=== PATIENT | female | born 1970 | race American Indian/Alaskan Native ===

== ENCOUNTER 2016-12-04 10:11 | Emergency (ER) | payer SELFPAY ==
[2016-12-04 10:54] LABS: Basophils % (Auto) 0.6 % (0.0-1.8); Eosinophils % (Auto) 0.9 % (0.0-4.3); Hematocrit 30.1 % (30.3-42.9); Hemoglobin 9.5 gm/dl (10.1-14.3); Mean Corpuscular HGB Conc 32 % (30-34); Platelet Count 228 K/mm3 (140-440); Red Blood Count 4.37 M/mm3 (3.65-5.03); White Blood Count 5.5 K/mm3 (4.5-11.0)
[2016-12-04 11:01] LABS: Mean Corpuscular Hemoglobin 22 pg (28-32); Mean Corpuscular Volume 69 fl (79-97); Red Cell Distribution Width 22.5 % (13.2-15.2)
[2016-12-04 11:06] LABS: Anion Gap 18 mmol/L; Blood Urea Nitrogen 15 mg/dL (7-17); Calcium 10.2 mg/dL (8.4-10.2); Carbon Dioxide 22 mmol/L (22-30); Chloride 99.5 mmol/L (98-107); Glucose 81 mg/dL (65-100); Potassium 4.4 mmol/L (3.6-5.0); Sodium 135 mmol/L (137-145)
--- NOTE | 2016-12-04 11:07 | XRay Report ---
Chest 2 views: History: Shortness of breath. Findings: Normal cardiomediastinal silhouette. Trachea is midline. No consolidation, pneumothorax or pleural effusion. Impression: No acute cardiopulmonary findings.
--- NOTE | 2016-12-04 15:07 | Emergency Department Report ---
ED Shortness of Breath HPI - General Chief Complaint: Dyspnea/Respdistress Stated Complaint: KAL Time Seen by Provider: 12/04/16 14:42 Source: patient Mode of arrival: Ambulatory Limitations: No Limitations - History of Present Illness MD Complaint: shortness of breath -: Gradual Severity: mild Pain Scale: 1 Quality: dull Consistency: intermittent Improves With: nothing Worsens With: nothing Context: recent URI Associated Symptoms: chest pain, pain with inspiration Treatments Prior to Arrival: none - Related Data Home Oxygen Therapy: No Home Medications Medication Instructions Recorded Confirmed Last Taken Hydrochlorothiazide [Hctz] 25 mg PO QDAY 12/18/13 12/04/16 01/12/15 Lisinopril [Zestril TAB] 40 mg PO BID 12/04/16 12/04/16 Unknown Verapamil ER [Calan Sr] 240 mg PO BID 12/04/16 12/04/16 Unknown Previous Rx's Medication Instructions Recorded Last Taken Type Ferrous Sulfate [Feosol 325 MG tab] 325 mg PO QDAY #60 tablet 12/04/16 Unknown Rx Allergies Allergy/AdvReac Type Severity Reaction Status Date / Time No Known Allergies Allergy Verified 05/01/13 00:03 ED Review of Systems ROS: Stated complaint: KAL Other details as noted in HPI Comment: All other systems reviewed and negative ED Past Medical Hx - Past Medical History Previous Medical History?: Yes Hx Hypertension: Yes Additional medical history: heart murmer - Surgical History Past Surgical History?: No - Social History Smoking Status: Current Every Day Smoker Substance Use Type: Alcohol, Prescribed - Medications Home Medications: Home Medications Medication Instructions Recorded Confirmed Last Taken Type Hydrochlorothiazide [Hctz] 25 mg PO QDAY 12/18/13 12/04/16 01/12/15 History Ferrous Sulfate [Feosol 325 MG tab] 325 mg PO QDAY #60 tablet 12/04/16 Unknown Rx Lisinopril [Zestril TAB] 40 mg PO BID 12/04/16 12/04/16 Unknown History Verapamil ER [Calan Sr] 240 mg PO BID 12/04/16 12/04/16 Unknown History ED Physical Exam - General Limitations: No Limitations General appearance: alert, in no apparent distress - Head Head exam: Present: atraumatic, normocephalic - Eye Eye exam: Present: normal appearance - ENT ENT exam: Present: mucous membranes moist - Neck Neck exam: Present: normal inspection - Respiratory Respiratory exam: Present: normal lung sounds bilaterally. Absent: respiratory distress - Cardiovascular Cardiovascular Exam: Present: regular rate, normal rhythm. Absent: systolic murmur, diastolic murmur, rubs, gallop - GI/Abdominal GI/Abdominal exam: Present: soft, normal bowel sounds - Extremities Exam Extremities exam: Present: normal inspection - Back Exam Back exam: Present: normal inspection - Neurological Exam Neurological exam: Present: alert, oriented X3 - Psychiatric Psychiatric exam: Present: normal affect, normal mood - Skin Skin exam: Present: warm, dry, intact, normal color. Absent: rash ED Course Vital Signs 12/04/16 12/04/16 12/04/16 10:19 13:44 13:50 Temperature 98 F Pulse Rate 59 L 53 L 50 L Respiratory 24 10 L 14 Rate Blood Pressure 139/53 141/43 O2 Sat by Pulse 100 100 100 Oximetry ED Medical Decision Making - Lab Data Result diagrams: 12/04/16 10:28 12/04/16 10:26 - EKG Data Interpretation: no acute changes, normal EKG - Radiology Data Radiology results: report reviewed, image reviewed - Medical Decision Making patient doing well, cxr negative , labs negative./ no evidence to suspect PE at this time, symptoms resolved, Critical care attestation.: If time is entered above; I have spent that time in minutes in the direct care of this critically ill patient, excluding procedure time. ED Disposition Clinical Impression: Shortness of breath Disposition: DC-01 TO HOME OR SELFCARE Is pt being admited?: No Does the pt Need Aspirin: No Condition: Good Instructions: Dyspnea (ED) Prescriptions: Ferrous Sulfate [Feosol 325 MG tab] 325 mg PO QDAY #60 tablet Referrals: PRIMARY CARE, [Primary Care Provider] - 3-5 Days Time of Disposition: 15:14
[2016-12-04 15:41] VITALS: BP 154/47
== END 2016-12-04 15:45 | disposition home or self-care (01) ==
LOC: ED 10:11
DX: R06.02 Shortness of breath (principal); F17.200 Nicotine dependence, unspecified, uncomplicated; I10 Essential (primary) hypertension
CPT/HCPCS: 36415; 71020; 80048; 84484; 85025; 93005; 93010

== ENCOUNTER 2017-03-26 02:47 | Emergency (ER) | payer SELFPAY ==
--- NOTE | 2017-03-26 03:42 | XRay Report ---
FINAL REPORT PROCEDURE: XR FOOT 3+V LT TECHNIQUE: LEFT foot radiographs, AP, lateral, and oblique views. CPT 82020 HISTORY: PAIN....LT FOOT PAIN/EM COMPARISON: No prior studies are available for comparison. FINDINGS: Fracture (s) and/or Dislocation(s): None . Alignment: Normal . Joint space(s): Normal . Soft tissues: Normal . Bone mineralization: Normal . Foreign bodies: None . Calcaneal spurring: There are calcaneal spurs.. IMPRESSION: There is no acute bony or soft tissue abnormality..
[2017-03-26 08:29] VITALS: BP 138/63
[2017-03-26] MEDS ORDERED: TORADOL IM ONE (08:58)
--- NOTE | 2017-03-26 10:31 | Emergency Department Report ---
ED Lower Extremity HPI - General Chief Complaint: Extremity Injury, Lower Stated Complaint: HEEL PAIN Source: patient Mode of arrival: Ambulatory Limitations: No Limitations - History of Present Illness Initial Comments: 46 y/o F with a presents with left achilles region pain that started after she fell down 10 stairs on Thursday. Pt denies any LOC, trauma to the head, dizziness , or blurried vision at this time. Pt has not tried anything for the pain at this time. Pt states that the pain increases with bearing weight, decreases with rest. Pt states that the pain increased the following day after the incident. She states that the pain is a 9/10 in severity. Pt states her past menstrual cycle was 03/03/17 and denies a UPT at this time. NKDA. - Related Data Home Medications Medication Instructions Recorded Confirmed Last Taken Hydrochlorothiazide [Hctz] 25 mg PO QDAY 12/18/13 12/04/16 01/12/15 Lisinopril [Zestril TAB] 40 mg PO BID 12/04/16 12/04/16 Unknown Verapamil ER [Calan Sr] 240 mg PO BID 12/04/16 12/04/16 Unknown Previous Rx's Medication Instructions Recorded Last Taken Type Ferrous Sulfate [Feosol 325 MG tab] 325 mg PO QDAY #60 tablet 12/04/16 Unknown Rx Ibuprofen [Motrin 800 MG tab] 800 mg PO Q8HR PRN #15 tablet 03/26/17 Unknown Rx Allergies Allergy/AdvReac Type Severity Reaction Status Date / Time No Known Allergies Allergy Verified 05/01/13 00:03 ED Review of Systems ROS: Stated complaint: HEEL PAIN Other details as noted in HPI Constitutional: denies: chills, fever Eyes: denies: eye pain, eye discharge, vision change ENT: denies: ear pain, throat pain Respiratory: denies: cough, shortness of breath, wheezing Cardiovascular: denies: chest pain, palpitations Genitourinary: denies: urgency, dysuria, discharge Musculoskeletal: other (reports to left achilles region pain, swelling, and redness) Skin: other (redness noted at the left achilles region) Neurological: denies: headache, weakness, paresthesias Psychiatric: denies: anxiety, depression ED Past Medical Hx - Past Medical History Hx Hypertension: Yes Additional medical history: heart murmer - Social History Smoking Status: Current Some Day Smoker - Medications Home Medications: Home Medications Medication Instructions Recorded Confirmed Last Taken Type Hydrochlorothiazide [Hctz] 25 mg PO QDAY 12/18/13 12/04/16 01/12/15 History Ferrous Sulfate [Feosol 325 MG tab] 325 mg PO QDAY #60 tablet 12/04/16 Unknown Rx Lisinopril [Zestril TAB] 40 mg PO BID 12/04/16 12/04/16 Unknown History Verapamil ER [Calan Sr] 240 mg PO BID 12/04/16 12/04/16 Unknown History Ibuprofen [Motrin 800 MG tab] 800 mg PO Q8HR PRN #15 tablet 03/26/17 Unknown Rx ED Physical Exam - General Limitations: No Limitations General appearance: alert, in no apparent distress - Head Head exam: Present: atraumatic, normocephalic - Eye Eye exam: Present: normal appearance - ENT ENT exam: Present: mucous membranes moist - Respiratory Respiratory exam: Present: normal lung sounds bilaterally. Absent: respiratory distress - Cardiovascular Cardiovascular Exam: Present: regular rate, normal rhythm. Absent: systolic murmur, diastolic murmur, rubs, gallop - Extremities Exam Extremities exam: Present: other (negative zambrano's test, sensation is intact , there is no gap at the tendon region, pulses are full, pt is able to bare weight and ROM is intact despite pain) - Expanded Lower Extremity Exam Left Ankle exam: Present: full ROM (increased pain with flexion and extension of the left achilles joint, strength is intact depsite pain), tenderness (noted at the left anchilles region), swelling (mild swelling and redness noted at the left achilles region) Foot/Toe exam: Present: normal inspection, full ROM - Back Exam Back exam: Present: normal inspection - Neurological Exam Neurological exam: Present: alert, oriented X3, other (mild limping at the site of injury, mild redness and swelling noted at the site ) - Psychiatric Psychiatric exam: Present: normal affect, normal mood - Skin Skin exam: Present: warm, dry, intact, other (there was mild redness noted at the achilles region of the left LE). Absent: rash ED Course Vital Signs 03/26/17 03/26/17 03:05 08:28 Temperature 98.1 F 98.2 F Pulse Rate 76 87 Respiratory 18 14 Rate Blood Pressure 191/62 Blood Pressure 138/63 [Left] O2 Sat by Pulse 100 100 Oximetry ED Lower Extremity MDM - Radiology Data Radiology results: image reviewed XR of the left foot was unremarkable for any acute fractures there was calcaneal spurs noted. - Medical Decision Making Pt had fallen down 10 stairs on Thursday, XR of the left foot was no indicative of fractures. There was no evidence of tendon rupture. Pt was examined by myself and Dr. Coon. Pt was given toradol in the ED with improvement of the pain. She was discharged with a ankle stirrup, crutches, and anti-inflammatory at this time. RICE therapy. She was encouraged to follow-up with Dr. Hernandez, referral provided. pt was discharged in stable condition, alert and oriented, and does not appear to be in any respiratory distress at this time. Critical care attestation.: If time is entered above; I have spent that time in minutes in the direct care of this critically ill patient, excluding procedure time. ED Disposition Clinical Impression: Left ankle pain Qualifiers: Chronicity: acute Qualified Code(s): M25.572 - Pain in left ankle and joints of left foot Disposition: DC-01 TO HOME OR SELFCARE Is pt being admited?: No Does the pt Need Aspirin: No Condition: Stable Instructions: Ibuprofen (By mouth), Ankle Stirrup Splint (ED), Arthralgia (ED) , RICE Therapy (ED) Additional Instructions: Please take the anti-inflammatory as needed for the pain. Rest, Ice, compress and elevated the joint. Please purchase heel cups to help with the calcaneal spurs. A left ankle stirrup and crutches as need provided for you today. Please follow-up with PCP in 3-5 days. Please follow-up with orthopedics in 1 week. Return to the ER immediately with any acute worsening. Prescriptions: Ibuprofen [Motrin 800 MG tab] 800 mg PO Q8HR PRN #15 tablet PRN Reason: pain Referrals: PRIMARY MD SHANAE [Primary Care Provider] - 3-5 Days STEPHY HERNANDEZ MD [Staff Physician] - 3-5 Days [facility] [Outside] - 3-5 Days [facility] [Outside] - 3-5 Days Forms: Work/School Release Form(ED)
== END 2017-03-26 11:06 | disposition home or self-care (01) ==
LOC: ED 02:47
DX: M25.572 Pain in left ankle and joints of left foot (principal); I10 Essential (primary) hypertension
CPT/HCPCS: 29515; 73630; 96372; 99283; J1885

== ENCOUNTER 2018-08-15 13:36 | Emergency (ER) | payer SELFPAY ==
[2018-08-15 13:49] VITALS: BP 151/42
--- NOTE | 2018-08-15 13:53 | Emergency Department Report ---
ED ENT HPI - General Chief complaint: Dental/Oral Stated complaint: TOOTHACHE/HEADACHE Time Seen by Provider: 08/15/18 13:47 Source: patient Mode of arrival: Ambulatory Limitations: No Limitations - History of Present Illness Initial comments: This is a 48-year-old female that presents with right lower dental pain. Denies follow-up with dentist. Stated has this chronic condition. Stated will follow- up with dentist tomorrow. Denies any facial swelling. Denies any chest pain, shortness of breathe, fever, or chills. Nia reddy MD complaint: tooth pain -: week(s) Location: tooth # 1 - pain here Severity: mild Severity scale (0 -10): 8 Quality: aching Consistency: constant Improves with: none Worsens with: none Context- Dental: history of dental caries, poor dental care Associated Symptoms: gum swelling, toothache. denies: fever, cough, pain with swallowing, sore throat, tinnitus, hearing loss, discharge from ear, rhinorrhea - Related Data Previous Rx's Medication Instructions Recorded Last Taken Type Ibuprofen [Motrin 800 MG tab] 800 mg PO Q8HR PRN #15 tablet 03/26/17 Unknown Rx Ferrous Sulfate [Feosol 325 MG tab] 325 mg PO QDAY #60 tablet 05/23/18 Unknown Rx Lisinopril [Zestril TAB] 40 mg PO BID #60 tablet 05/23/18 Unknown Rx Verapamil ER [Calan Sr] 240 mg PO BID #60 tablet 05/23/18 Unknown Rx hydroCHLOROthiazide [Hctz] 25 mg PO QDAY #30 tablet 05/23/18 Unknown Rx Acetaminophen/Codeine [Tylenol 1 tab PO Q6H PRN #12 tab 08/15/18 Unknown Rx /Codeine # 3 tab] Amoxicillin/K Clav Tab [Augmentin 1 tab PO Q12HR #20 tab 08/15/18 Unknown Rx 875 mg] Chlorhexidine Mouthwash [Peridex] 15 ml MM BID #1 bottle 08/15/18 Unknown Rx Ibuprofen [Motrin] 600 mg PO Q8H PRN #20 tablet 08/15/18 Unknown Rx Allergies Allergy/AdvReac Type Severity Reaction Status Date / Time No Known Allergies Allergy Verified 05/01/13 00:03 ED Dental HPI - General Chief complaint: Dental/Oral Stated complaint: TOOTHACHE/HEADACHE Time Seen by Provider: 08/15/18 13:47 Source: patient Mode of arrival: Ambulatory Limitations: No Limitations - Related Data Previous Rx's Medication Instructions Recorded Last Taken Type Ibuprofen [Motrin 800 MG tab] 800 mg PO Q8HR PRN #15 tablet 03/26/17 Unknown Rx Ferrous Sulfate [Feosol 325 MG tab] 325 mg PO QDAY #60 tablet 05/23/18 Unknown Rx Lisinopril [Zestril TAB] 40 mg PO BID #60 tablet 05/23/18 Unknown Rx Verapamil ER [Calan Sr] 240 mg PO BID #60 tablet 05/23/18 Unknown Rx hydroCHLOROthiazide [Hctz] 25 mg PO QDAY #30 tablet 05/23/18 Unknown Rx Acetaminophen/Codeine [Tylenol 1 tab PO Q6H PRN #12 tab 08/15/18 Unknown Rx /Codeine # 3 tab] Amoxicillin/K Clav Tab [Augmentin 1 tab PO Q12HR #20 tab 08/15/18 Unknown Rx 875 mg] Chlorhexidine Mouthwash [Peridex] 15 ml MM BID #1 bottle 08/15/18 Unknown Rx Ibuprofen [Motrin] 600 mg PO Q8H PRN #20 tablet 08/15/18 Unknown Rx Allergies Allergy/AdvReac Type Severity Reaction Status Date / Time No Known Allergies Allergy Verified 05/01/13 00:03 ED Review of Systems ROS: Stated complaint: TOOTHACHE/HEADACHE Other details as noted in HPI Constitutional: denies: chills, fever Eyes: denies: eye pain, eye discharge, vision change ENT: dental pain. denies: ear pain, throat pain Respiratory: denies: cough, shortness of breath, wheezing Cardiovascular: denies: chest pain, palpitations Endocrine: no symptoms reported Gastrointestinal: denies: abdominal pain, nausea, diarrhea Genitourinary: denies: urgency, dysuria, discharge Musculoskeletal: denies: back pain, joint swelling, arthralgia Skin: denies: rash, lesions Neurological: denies: headache, weakness, paresthesias Psychiatric: denies: anxiety, depression Hematological/Lymphatic: denies: easy bleeding, easy bruising ED Past Medical Hx - Past Medical History Hx Hypertension: Yes Additional medical history: heart murmer - Social History Smoking Status: Current Every Day Smoker Substance Use Type: None - Medications Home Medications: Home Medications Medication Instructions Recorded Confirmed Last Taken Type Ibuprofen [Motrin 800 MG tab] 800 mg PO Q8HR PRN #15 tablet 03/26/17 Unknown Rx Ferrous Sulfate [Feosol 325 MG tab] 325 mg PO QDAY #60 tablet 05/23/18 Unknown Rx Lisinopril [Zestril TAB] 40 mg PO BID #60 tablet 05/23/18 Unknown Rx Verapamil ER [Calan Sr] 240 mg PO BID #60 tablet 05/23/18 Unknown Rx hydroCHLOROthiazide [Hctz] 25 mg PO QDAY #30 tablet 05/23/18 Unknown Rx Acetaminophen/Codeine [Tylenol 1 tab PO Q6H PRN #12 tab 08/15/18 Unknown Rx /Codeine # 3 tab] Amoxicillin/K Clav Tab [Augmentin 1 tab PO Q12HR #20 tab 08/15/18 Unknown Rx 875 mg] Chlorhexidine Mouthwash [Peridex] 15 ml MM BID #1 bottle 08/15/18 Unknown Rx Ibuprofen [Motrin] 600 mg PO Q8H PRN #20 tablet 08/15/18 Unknown Rx ED Physical Exam - General Limitations: No Limitations General appearance: alert, in no apparent distress - Head Head exam: Present: atraumatic, normocephalic - Expanded ENT Exam Expanded Ear exam: Present: normal external inspection Mouth exam: Present: normal external inspection. Absent: drooling, trismus, muffled voice Teeth exam: Present: dental caries, fractured tooth #, dental tenderness #, gingival enlargement, other (no facial swelling. No abscess.) Throat exam: Positive: normal inspection - Neck Neck exam: Present: normal inspection, full ROM - Extremities Exam Extremities exam: Present: normal inspection, full ROM - Back Exam Back exam: Present: normal inspection - Neurological Exam Neurological exam: Present: alert, oriented X3 - Psychiatric Psychiatric exam: Present: normal affect, normal mood - Skin Skin exam: Present: warm, dry, intact, normal color. Absent: rash ED Course - Reevaluation(s) Reevaluation #1: 08/15/18 13:50 Patient is speaking in full sentences with no signs of distress noted. Critical care attestation.: If time is entered above; I have spent that time in minutes in the direct care of this critically ill patient, excluding procedure time. ED Disposition Clinical Impression: Dental caries, Gingivitis Disposition: TO HOME OR SELFCARE Is pt being admited?: No Does the pt Need Aspirin: No Condition: Stable Instructions: Dental Caries (ED), Gingivitis (ED), Acetaminophen/Codeine (By mouth) Additional Instructions: Follow-up with dentist doctor in 3-5 days or if symptoms worsen and continue return to the emergency department as soon as possible. Prescriptions: Acetaminophen/Codeine [Tylenol /Codeine # 3 tab] 1 tab PO Q6H PRN #12 tab PRN Reason: Pain , Severe (7-10) Amoxicillin/K Clav Tab [Augmentin 875 mg] 1 tab PO Q12HR #20 tab Chlorhexidine Mouthwash [Peridex] 15 ml MM BID #1 bottle Ibuprofen [Motrin] 600 mg PO Q8H PRN #20 tablet PRN Reason: Pain Referrals: PRIMARY CARE, [Referring] - 3-5 Days MOE STERN MD [Staff Physician] - 3-5 Days [facility] [Outside] - 3-5 Days
== END 2018-08-15 14:04 | disposition home or self-care (01) ==
LOC: ED 13:36
DX: K02.9 Dental caries, unspecified (principal); K05.10 Chronic gingivitis, plaque induced; I10 Essential (primary) hypertension; F17.200 Nicotine dependence, unspecified, uncomplicated
CPT/HCPCS: 99282

== ENCOUNTER 2018-10-05 16:59 | Emergency (ER) | payer OTHER ==
--- NOTE | 2018-10-05 17:08 | Emergency Department Report ---
Chief Complaint: Pain General Stated Complaint: BODY ACHE Time Seen by Provider: 10/05/18 17:06 - HPI History of Present Illness: HERE WITH GEN BODY ACHES NO FEVER AT HOME NO OTHER S/S TEMP 99 IN TRIAGE TEARFUL IN TRIAGE NO COUGH NO N/V/D NO ABD PAIN NO FLU SHOT THIS YEAR PSH NONE PMH HTN RX VERAPAMIL LISINOPRIL MOM DEC OLD AGE DAD DEC ? CAUSE OBESE CIG MSE COMPLETED - Exam Vital Signs: Vital Signs 10/05/18 17:04 Temperature 99.9 F H Pulse Rate 78 Respiratory 20 Rate Blood Pressure 172/58 O2 Sat by Pulse 99 Oximetry MSE screening note: Focused history and physical exam performed. Due to findings the following was ordered: ED Disposition for MSE Condition: Stable
[2018-10-05 17:41] LABS: Hematocrit 36.1 % (30.3-42.9); Hemoglobin 11.4 gm/dl (10.1-14.3); Mean Corpuscular HGB Conc 32 % (30-34); Mean Corpuscular Volume 75 fl (79-97); Platelet Count 267 K/mm3 (140-440); Red Blood Count 4.81 M/mm3 (3.65-5.03)
[2018-10-05 17:42] LABS: Red Cell Distribution Width 25.2 % (13.2-15.2)
[2018-10-05 18:02] LABS: Alanine Aminotransferase 12 units/L (7-56); Albumin 4.2 g/dL (3.9-5); BUN/Creatinine Ratio 17; Blood Urea Nitrogen 10 mg/dL (7-17); Calcium 10.5 mg/dL (8.4-10.2); Hemolysis Index 4
--- NOTE | 2018-10-05 18:28 | XRay Report ---
PROCEDURE: XR CHEST ROUTINE 2V TECHNIQUE: PA and lateral chest radiographs were obtained. HISTORY: PAIN COMPARISONS: 05/23/2018. FINDINGS: Heart: Normal. Mediastinum/Vessels: Normal. Lungs/Pleural space: No infiltrate, effusion, or pneumothorax. Bony thorax: No acute osseous abnormality. IMPRESSION: No radiographic evidence of acute abnormality. This document is electronically signed by Mary Anderson MD., October 05 2018 06:26:13 PM ET
[2018-10-05 18:58] LABS: Bacteria,Urine 1+ /HPF (Negative); Bilirubin,Urine NEG (Negative); Blood,Urine NEG (Negative); Color,Urine Yellow (Yellow); Protein,Urine <15 mg/dL mg/dL (Negative); WBC,Urine < 1.0 /HPF (0.0-6.0)
[2018-10-05] MEDS ORDERED: NACL 0.9% 1000 ML 1,000 ML IV ONE (19:11)
[2018-10-05] MEDS ORDERED: IBUPROFEN PO ONE (19:12)
[2018-10-05] MEDS ORDERED: XYLOCAINE 1% MPF 5 mL INFILTRATI ONE (19:30)
[2018-10-05] MEDS ORDERED: ROCEPHIN IM STA (19:30)
[2018-10-05] MEDS ORDERED: NORCO 5/325 PO STA (19:30)
--- NOTE | 2018-10-05 20:47 | Emergency Department Report ---
- General Chief Complaint: Pain General Stated Complaint: BODY ACHE Time Seen by Provider: 10/05/18 17:06 Source: patient Mode of arrival: Ambulatory Limitations: No Limitations - History of Present Illness Initial Comments: 48-year-old female this morning, went to work at 5 AM she was she thinks was sick with cold symptoms to develop sinus congestion, coryza and dull headache around 9:30, which is continued to progressively worsen since the onset. She reports no sore throat, no hemoptysis, hematemesis, no sputum production. No dysuria, no abdominal pain, no rashes or wounds to the body. MD Complaint: nasal congestion Consistency: constant Improves With: nothing Worsens With: nothing Context: sick contacts Associated Symptoms: chills, myalgias, cough. denies: shortness of breath, abdominal pain, confusion, right sweats, weight loss, epistaxis Treatments Prior to Arrival: none - Related Data Previous Rx's Medication Instructions Recorded Last Taken Type Ibuprofen [Motrin 800 MG tab] 800 mg PO Q8HR PRN #15 tablet 03/26/17 Unknown Rx Ferrous Sulfate [Feosol 325 MG tab] 325 mg PO QDAY #60 tablet 05/23/18 Unknown Rx Lisinopril [Zestril TAB] 40 mg PO BID #60 tablet 05/23/18 Unknown Rx Verapamil ER [Calan Sr] 240 mg PO BID #60 tablet 05/23/18 Unknown Rx hydroCHLOROthiazide [Hctz] 25 mg PO QDAY #30 tablet 05/23/18 Unknown Rx Acetaminophen/Codeine [Tylenol 1 tab PO Q6H PRN #12 tab 08/15/18 Unknown Rx /Codeine # 3 tab] Amoxicillin/K Clav Tab [Augmentin 1 tab PO Q12HR #20 tab 08/15/18 Unknown Rx 875 mg] Chlorhexidine Mouthwash [Peridex] 15 ml MM BID #1 bottle 08/15/18 Unknown Rx Ibuprofen [Motrin] 600 mg PO Q8H PRN #20 tablet 08/15/18 Unknown Rx Allergies Allergy/AdvReac Type Severity Reaction Status Date / Time No Known Allergies Allergy Verified 10/05/18 17:01 ED Review of Systems ROS: Stated complaint: BODY ACHE Other details as noted in HPI Constitutional: denies: chills, fever Eyes: denies: eye pain, eye discharge, vision change ENT: denies: ear pain, throat pain Respiratory: denies: cough, shortness of breath, wheezing Cardiovascular: denies: chest pain, palpitations Endocrine: no symptoms reported Gastrointestinal: denies: abdominal pain, nausea, diarrhea Genitourinary: denies: urgency, dysuria, discharge Musculoskeletal: denies: back pain, joint swelling, arthralgia Skin: denies: rash, lesions Neurological: denies: headache, weakness, paresthesias Psychiatric: denies: anxiety, depression Hematological/Lymphatic: denies: easy bleeding, easy bruising ED Past Medical Hx - Past Medical History Previous Medical History?: Yes Hx Hypertension: Yes Additional medical history: heart murmer - Surgical History Past Surgical History?: No - Social History Smoking Status: Current Every Day Smoker Substance Use Type: None - Medications Home Medications: Home Medications Medication Instructions Recorded Confirmed Last Taken Type Ibuprofen [Motrin 800 MG tab] 800 mg PO Q8HR PRN #15 tablet 03/26/17 Unknown Rx Ferrous Sulfate [Feosol 325 MG tab] 325 mg PO QDAY #60 tablet 05/23/18 Unknown Rx Lisinopril [Zestril TAB] 40 mg PO BID #60 tablet 05/23/18 Unknown Rx Verapamil ER [Calan Sr] 240 mg PO BID #60 tablet 05/23/18 Unknown Rx hydroCHLOROthiazide [Hctz] 25 mg PO QDAY #30 tablet 05/23/18 Unknown Rx Acetaminophen/Codeine [Tylenol 1 tab PO Q6H PRN #12 tab 08/15/18 Unknown Rx /Codeine # 3 tab] Amoxicillin/K Clav Tab [Augmentin 1 tab PO Q12HR #20 tab 08/15/18 Unknown Rx 875 mg] Chlorhexidine Mouthwash [Peridex] 15 ml MM BID #1 bottle 08/15/18 Unknown Rx Ibuprofen [Motrin] 600 mg PO Q8H PRN #20 tablet 08/15/18 Unknown Rx ED Physical Exam - General Limitations: No Limitations General appearance: alert, in no apparent distress - Head Head exam: Present: atraumatic, normocephalic - Eye Eye exam: Present: normal appearance, PERRL, EOMI Pupils: Present: normal accommodation - ENT ENT exam: Present: normal exam, normal orophraynx, mucous membranes moist, TM's normal bilaterally, other (nasal congestion bilaterally with some sinus pressure and increased swelling to the naval nasal turbinates on the right side. He was of no effusion.) - Neck Neck exam: Present: normal inspection, full ROM - Respiratory Respiratory exam: Present: normal lung sounds bilaterally, chest wall tenderness. Absent: respiratory distress, wheezes, rales, rhonchi, stridor - Cardiovascular Cardiovascular Exam: Present: regular rate, normal rhythm. Absent: systolic murmur, diastolic murmur, rubs, gallop - GI/Abdominal GI/Abdominal exam: Present: soft, normal bowel sounds - Extremities Exam Extremities exam: Present: normal inspection - Back Exam Back exam: Present: normal inspection - Neurological Exam Neurological exam: Present: alert, oriented X3 - Psychiatric Psychiatric exam: Present: normal affect, normal mood - Skin Skin exam: Present: warm, dry, intact, normal color. Absent: rash ED Course Vital Signs 10/05/18 17:04 Temperature 99.9 F H Pulse Rate 78 Respiratory 20 Rate Blood Pressure 172/58 O2 Sat by Pulse 99 Oximetry ED Medical Decision Making - Lab Data Result diagrams: 10/05/18 17:25 10/05/18 17:25 - Radiology Data Radiology results: report reviewed Critical care attestation.: If time is entered above; I have spent that time in minutes in the direct care of this critically ill patient, excluding procedure time. ED Disposition Clinical Impression: Leukocytosis, Cough Disposition: DC-01 TO HOME OR SELFCARE Is pt being admited?: No Does the pt Need Aspirin: No Condition: Stable Instructions: Upper Respiratory Infection (ED), Cold Symptoms (ED) Referrals: NIT[facility] MAR [Primary Care Provider] - 3-5 Days
[2018-10-05 21:23] VITALS: BP 151/60
== END 2018-10-05 21:11 | disposition home or self-care (01) ==
LOC: ED 16:59
DX: D72.829 Elevated white blood cell count, unspecified (principal); R05 Cough
CPT/HCPCS: 36415; 71046; 80053; 81001; 85027; 96372; 99284; J0696; J7030

== ENCOUNTER 2018-11-09 08:45 | Observation (INO) | payer SELFPAY ==
[2018-11-09] MEDS ORDERED: ASPIRIN PO ONE (08:51)
[2018-11-09 09:38] LABS: Basophils # (Auto) 0.1 K/mm3 (0.0-0.1); Eosinophils % (Auto) 0.6 % (0.0-4.3); Hematocrit 38.2 % (30.3-42.9); Hemoglobin 12.6 gm/dl (10.1-14.3); Lymphocytes # (Auto) 1.2 K/mm3 (1.2-5.4); Lymphocytes % (Auto) 18.8 % (13.4-35.0); Mean Corpuscular HGB Conc 33 % (30-34); Mean Corpuscular Volume 79 fl (79-97); Monocytes # (Auto) 0.6 K/mm3 (0.0-0.8); Monocytes % (Auto) 8.6 % (0.0-7.3); Platelet Count 178 K/mm3 (140-440); Red Blood Count 4.85 M/mm3 (3.65-5.03)
--- NOTE | 2018-11-09 09:41 | XRay Report ---
AP CHEST: HISTORY: chest pain AP view of the chest demonstrates a normal mediastinal and cardiac contour with clear lungs and normal bony and soft tissue structures. IMPRESSION: Unremarkable AP chest. No change since 10/05/18.
[2018-11-09 09:43] LABS: Red Cell Distribution Width 22.8 % (13.2-15.2)
[2018-11-09 09:52] LABS: BUN/Creatinine Ratio 20; Blood Urea Nitrogen 12 mg/dL (7-17); Hemolysis Index 7
--- NOTE | 2018-11-09 10:40 | Emergency Department Report ---
ED Chest Pain HPI - General Chief Complaint: Chest Pain Stated Complaint: BODY ACHE/HEADACHE/HEART FLUTTERING Time Seen by Provider: 11/09/18 10:11 Source: patient Mode of arrival: Ambulatory Limitations: No Limitations - History of Present Illness Initial Comments: 48-year-old female with history of hypertension presents to ED with palpitations and chest tightness since last night. Patient reports history of "irregular heartbeat." Patient states symptoms have been constant. No aggravating or alleviating factors. Denies shortness of breath, nausea, vomiting, diaphoresis. Denies leg pain or swelling. Patient reports she ran out of her BP meds 4 days ago. Patient reports tobacco use. Last stress test approx 4 yrs ago per patient. PCP: Dr Jalen HAQUE Complaint: chest pain -: Last night Onset: during rest Pain Location: left chest Pain Radiation: none Severity: moderate Severity scale (0 -10): 4 Quality: tightness Consistency: constant Improves With: nothing Worsens With: nothing re: denies: nausea, vomting, diaphoresis, dyspnea Other Symptoms: denies: cough, fever, leg swelling Treatments Prior to Arrival: none - Related Data Home Medications Medication Instructions Recorded Confirmed Last Taken Potassium Chloride [K-Dur] 20 meq PO QDAY 11/09/18 11/09/18 Unknown Previous Rx's Medication Instructions Recorded Last Taken Type Ferrous Sulfate [Feosol 325 MG tab] 325 mg PO QDAY #60 tablet 05/23/18 Unknown Rx Lisinopril [Zestril TAB] 40 mg PO BID #60 tablet 05/23/18 Unknown Rx Verapamil ER [Calan Sr] 240 mg PO BID #60 tablet 05/23/18 Unknown Rx hydroCHLOROthiazide [Hctz] 25 mg PO QDAY #30 tablet 05/23/18 Unknown Rx Allergies Allergy/AdvReac Type Severity Reaction Status Date / Time No Known Allergies Allergy Verified 11/09/18 08:47 Heart Score - HEART Score History: Slightly suspicious EKG: Non-specific Age: 45-65 Risk factors: 1-2 risk factors Troponin: < normal limit HEART Score: 3 ED Review of Systems ROS: Stated complaint: BODY ACHE/HEADACHE/HEART FLUTTERING Other details as noted in HPI Comment: All other systems reviewed and negative Constitutional: denies: chills, fever Respiratory: denies: shortness of breath Cardiovascular: chest pain, palpitations Gastrointestinal: denies: nausea, vomiting Musculoskeletal: other (denies leg pain or swelling) ED Past Medical Hx - Past Medical History Hx Hypertension: Yes Additional medical history: heart murmer - Surgical History Past Surgical History?: No - Social History Smoking Status: Current Every Day Smoker - Medications Home Medications: Home Medications Medication Instructions Recorded Confirmed Last Taken Type Ferrous Sulfate [Feosol 325 MG tab] 325 mg PO QDAY #60 tablet 05/23/18 11/09/18 Unknown Rx Lisinopril [Zestril TAB] 40 mg PO BID #60 tablet 05/23/18 11/09/18 Unknown Rx Verapamil ER [Calan Sr] 240 mg PO BID #60 tablet 05/23/18 11/09/18 Unknown Rx hydroCHLOROthiazide [Hctz] 25 mg PO QDAY #30 tablet 05/23/18 11/09/18 Unknown Rx Potassium Chloride [K-Dur] 20 meq PO QDAY 11/09/18 11/09/18 Unknown History ED Physical Exam - General Limitations: No Limitations General appearance: alert, in no apparent distress - Head Head exam: Present: atraumatic, normocephalic - Eye Eye exam: Present: normal appearance - ENT ENT exam: Present: mucous membranes moist - Neck Neck exam: Present: normal inspection - Respiratory Respiratory exam: Present: normal lung sounds bilaterally. Absent: respiratory distress - Cardiovascular Cardiovascular Exam: Present: regular rate, irregular rhythm - GI/Abdominal GI/Abdominal exam: Present: soft. Absent: distended, tenderness - Extremities Exam Extremities exam: Absent: pedal edema, calf tenderness - Neurological Exam Neurological exam: Present: alert, oriented X3, CN II-XII intact. Absent: motor sensory deficit - Psychiatric Psychiatric exam: Present: normal affect, normal mood - Skin Skin exam: Present: warm, dry, intact, normal color ED Course Vital Signs 11/09/18 11/09/18 11/09/18 08:47 10:31 11:00 Temperature 97.9 F Pulse Rate 90 97 H 81 Respiratory 20 23 24 Rate Blood Pressure 171/117 195/85 185/84 Blood Pressure [Left] O2 Sat by Pulse 100 Oximetry 11/09/18 11/09/18 11/09/18 11:15 11:31 12:01 Temperature Pulse Rate 82 91 H 81 Respiratory 17 18 Rate Blood Pressure 185/84 185/84 174/70 Blood Pressure [Left] O2 Sat by Pulse Oximetry 11/09/18 11/09/18 11/09/18 12:31 13:00 13:31 Temperature Pulse Rate 82 82 76 Respiratory 26 H 16 11 L Rate Blood Pressure 164/77 163/74 163/74 Blood Pressure [Left] O2 Sat by Pulse Oximetry 11/09/18 11/09/18 14:00 16:00 Temperature 98.2 F Pulse Rate 75 86 Respiratory 18 18 Rate Blood Pressure 167/89 Blood Pressure 157/66 [Left] O2 Sat by Pulse 98 Oximetry ED Medical Decision Making - Lab Data Result diagrams: 11/09/18 09:25 11/09/18 09:25 - EKG Data -: EKG Interpreted by Me EKG shows normal: axis, intervals, QRS complexes, ST-T waves Rate: normal - EKG Data Interpretation: other (Afib) - Radiology Data Radiology results: report reviewed, image reviewed - Differential Diagnosis ACS, pulm edema, pneumonia Critical care attestation.: If time is entered above; I have spent that time in minutes in the direct care of this critically ill patient, excluding procedure time. ED Disposition Clinical Impression: Chest pain, Hypertensive urgency Disposition: OP ADMIT IP TO THIS HOSP Is pt being admited?: Yes Condition: Stable Time of Disposition: 12:19
[2018-11-09] MEDS ORDERED: NORMODYNE IV ONE (11:00)
[2018-11-09] MEDS ORDERED: ASPIRIN ONE (11:09)
[2018-11-09] MEDS ORDERED: ZOFRAN IV PRN (21:12)
[2018-11-09] MEDS ORDERED: TYLENOL PO PRN (21:12)
[2018-11-09] MEDS ORDERED: SODIUM CHLORIDE FLUSH SYRINGE 10 ML IV PRN (21:12)
[2018-11-09] MEDS ORDERED: DILAUDID IV PRN (21:12)
[2018-11-09] MEDS ORDERED: PERCOCET 5/325 PO PRN (21:12)
--- NOTE | 2018-11-09 21:12 | History and Physical Report ---
History of Present Illness Date of examination: 11/09/18 Date of admission: 11/09/18 12:19 Chief complaint: Chest pain since last night History of present illness: 48-year-old female with history of hypertension presents with chest tightness and palpitations.Since last night.No sob or diaphoresis.Chest pain is intermittent and about 6/10 in intensity.Sharp ocassionally.No precipitating or relieving factors.No recewnt travel. Past Medical History Hx Hypertension: Yes Additional medical history: heart murmer Surgical History Past Surgical History?: No Social History Smoking Status: Current Every Day Smoker Family History Htn Medications Home Medications: Home Medications Medication Instructions Recorded Confirmed Last Taken Type Ferrous Sulfate [Feosol 325 MG tab] 325 mg PO QDAY #60 tablet 05/23/18 11/09/18 Unknown Rx Lisinopril [Zestril TAB] 40 mg PO BID #60 tablet 05/23/18 11/09/18 Unknown Rx Verapamil ER [Calan Sr] 240 mg PO BID #60 tablet 05/23/18 11/09/18 Unknown Rx hydroCHLOROthiazide [Hctz] 25 mg PO QDAY #30 tablet 05/23/18 11/09/18 Unknown Rx Potassium Chloride [K-Dur] 20 meq PO QDAY 11/09/18 11/09/18 Unknown History Review of Systems ROS: Stated complaint: BODY ACHE/HEADACHE/HEART FLUTTERING Other details as noted in HPI Comment: All other systems reviewed and negative Constitutional: denies: chills, fever Respiratory: denies: shortness of breath Cardiovascular: chest pain, palpitations Gastrointestinal: denies: nausea, vomiting Musculoskeletal: other (denies leg pain or swelling) Medications and Allergies Allergies Allergy/AdvReac Type Severity Reaction Status Date / Time No Known Allergies Allergy Verified 11/09/18 08:47 Home Medications Medication Instructions Recorded Confirmed Last Taken Type Ferrous Sulfate [Feosol 325 MG tab] 325 mg PO QDAY #60 tablet 05/23/18 11/09/18 Unknown Rx Lisinopril [Zestril TAB] 40 mg PO BID #60 tablet 05/23/18 11/09/18 Unknown Rx Verapamil ER [Calan Sr] 240 mg PO BID #60 tablet 05/23/18 11/09/18 Unknown Rx hydroCHLOROthiazide [Hctz] 25 mg PO QDAY #30 tablet 05/23/18 11/09/18 Unknown Rx Potassium Chloride [K-Dur] 20 meq PO QDAY 11/09/18 11/09/18 Unknown History Exam - Constitutional Vitals: Temp Pulse Resp BP Pulse Ox 98.1 F 79 20 172/77 96 11/09/18 19:58 11/09/18 19:58 11/09/18 19:58 11/09/18 19:58 11/09/18 19:58 General appearance: Present: no acute distress, well-nourished - EENT Eyes: Present: PERRL ENT: hearing intact, clear oral mucosa - Neck Neck: Present: supple, normal ROM - Respiratory Respiratory effort: normal Respiratory: bilateral: CTA - Cardiovascular Heart rate: 88 Rhythm: irregularly irregular Heart Sounds: Present: S1 & S2. Absent: rub, click - Extremities Extremities: no ischemia, pulses intact, pulses symmetrical, No edema Peripheral Pulses: within normal limits - Abdominal General gastrointestinal: Present: soft, non-tender, non-distended, normal bowel sounds Female genitourinary: Present: normal - Rectal Rectal Exam: deferred - Integumentary Integumentary: Present: clear, warm, dry - Musculoskeletal Musculoskeletal: gait normal, strength equal bilaterally - Psychiatric Psychiatric: appropriate mood/affect, intact judgment & insight - Neurologic Neurologic: CNII-XII intact, moves all extremities - Allied Health Allied health notes reviewed: nursing, case management Results - Labs CBC & Chem 7: 11/09/18 09:25 11/09/18 09:25 Labs: Laboratory Last Values WBC 6.5 K/mm3 (4.5-11.0) 11/09/18 09:25 RBC 4.85 M/mm3 (3.65-5.03) 11/09/18 09:25 Hgb 12.6 gm/dl (10.1-14.3) 11/09/18 09:25 Hct 38.2 % (30.3-42.9) 11/09/18 09:25 MCV 79 fl (79-97) 11/09/18 09:25 MCH 26 pg (28-32) L 11/09/18 09:25 MCHC 33 % (30-34) 11/09/18 09:25 RDW 22.8 % (13.2-15.2) H 11/09/18 09:25 Plt Count 178 K/mm3 (140-440) 11/09/18 09:25 Lymph % (Auto) 18.8 % (13.4-35.0) 11/09/18 09:25 [place]wsley % (Auto) 8.6 % (0.0-7.3) H 11/09/18 09:25 Eos % (Auto) 0.6 % (0.0-4.3) 11/09/18 09:25 Baso % (Auto) 1.0 % (0.0-1.8) 11/09/18 09:25 Lymph # 1.2 K/mm3 (1.2-5.4) 11/09/18 09:25 [place]wsley # 0.6 K/mm3 (0.0-0.8) 11/09/18 09:25 Eos # 0.0 K/mm3 (0.0-0.4) 11/09/18 09:25 Baso # 0.1 K/mm3 (0.0-0.1) 11/09/18 09:25 Seg Neutrophils % 71.0 % (40.0-70.0) H 11/09/18 09:25 Seg Neutrophils # 4.6 K/mm3 (1.8-7.7) 11/09/18 09:25 Sodium 135 mmol/L (137-145) L 11/09/18 09:25 Potassium 3.9 mmol/L (3.6-5.0) 11/09/18 09:25 Chloride 99.5 mmol/L (98-107) 11/09/18 09:25 Carbon Dioxide 26 mmol/L (22-30) 11/09/18 09:25 13 mmol/L 11/09/18 09:25 BUN 12 mg/dL (7-17) 11/09/18 09:25 0.6 mg/dL (0.7-1.2) L 11/09/18 09:25 Estimated GFR > 60 ml/min 11/09/18 09:25 20 % 11/09/18 09:25 Glucose 89 mg/dL (65-100) 11/09/18 09:25 Calcium 10.0 mg/dL (8.4-10.2) 11/09/18 09:25 < 0.010 ng/mL (0.00-0.029) 05/21/19 16:32 Short CBC 11/09/18 Range/Units 09:25 WBC 6.5 (4.5-11.0) K/mm3 Hgb 12.6 (10.1-14.3) gm/dl Hct 38.2 (30.3-42.9) % Plt Count 178 (140-440) K/mm3 BMP 11/09/18 09:25 Sodium 135 L Potassium 3.9 Chloride 99.5 Carbon Dioxide 26 BUN 12 Creatinine 0.6 L Glucose 89 Calcium 10.0 Cardiac Enzymes 11/09/18 11/09/18 11/09/18 Range/Units 09:25 12:05 16:32 Troponin T < 0.010 < 0.010 < 0.010 (0.00-0.029) ng/mL 11/09/18 Range/Units 21:56 Troponin T < 0.010 (0.00-0.029) ng/mL - Imaging and Cardiology EKG: report reviewed (A fib 88 /min) Chest x-ray: report reviewed (NAF) Assessment and Plan Advance Directives: Yes (Full code) VTE prophylaxis?: Chemical Plan of care discussed with patient/family: Yes - Patient Problems (1) Hypertensive urgency Current Visit: Yes Status: Acute Plan to address problem: IV Hyudralazine given and IV Hydralazine 10mg q3 prn to cont If no response will initiate on Cardene drip. Antihypertensive s Adjusted and compliance was counselled Coreg added (2) Chest pain Current Visit: Yes Status: Acute Qualifiers: Chest pain type: unspecified Qualified Code(s): R07.9 - Chest pain, unspecified Plan to address problem: Serial rtroponins and LExiscan in AM Costochondritis and GERD in Differential diagnosis (3) Chronic a-fib Current Visit: Yes Status: Chronic Plan to address problem: Not on any anticoagulation will defer to cardiolgy Consult requested (4) Hyponatremia Current Visit: Yes Status: Acute Plan to address problem: Mild (5) DVT prophylaxis Current Visit: Yes Status: Acute Plan to address problem: on Lovenox
[2018-11-09] MEDS: ZESTRIL PO SCH (22:42)
[2018-11-09] MEDS: CALAN SR PO SCH (22:43)
[2018-11-09] MEDS: PEPCID PO SCH (22:43)
[2018-11-09] MEDS: K-DUR PO SCH (22:43)
[2018-11-09] MEDS: SODIUM CHLORIDE FLUSH SYRINGE 10 ML IV SCH (22:44)
[2018-11-10 07:58] LABS: Basophils % (Auto) 0.6 % (0.0-1.8); Eosinophils # (Auto) 0.1 K/mm3 (0.0-0.4); Eosinophils % (Auto) 1.9 % (0.0-4.3); Hematocrit 34.5 % (30.3-42.9); Hemoglobin 11.7 gm/dl (10.1-14.3); Lymphocytes # (Auto) 1.2 K/mm3 (1.2-5.4); Lymphocytes % (Auto) 26.3 % (13.4-35.0); Mean Corpuscular HGB Conc 34 % (30-34); Mean Corpuscular Volume 78 fl (79-97); Monocytes # (Auto) 0.5 K/mm3 (0.0-0.8); Monocytes % (Auto) 10.1 % (0.0-7.3); Platelet Count 164 K/mm3 (140-440); Red Blood Count 4.42 M/mm3 (3.65-5.03)
[2018-11-10] MEDS ORDERED: COREG PO SCH (08:00)
[2018-11-10 08:24] LABS: Alanine Aminotransferase 11 units/L (7-56); Albumin 3.6 g/dL (3.9-5); BUN/Creatinine Ratio 22; Blood Urea Nitrogen 11 mg/dL (7-17); Calcium 9.7 mg/dL (8.4-10.2); Hemolysis Index 0
[2018-11-10] MEDS ORDERED: LEXISCAN IV ONE ×2 (09:41)
[2018-11-10] MEDS ORDERED: HCTZ PO SCH (10:00)
--- NOTE | 2018-11-10 11:14 | Consultation ---
History of Present Illness Consult date: 11/10/18 Requesting physician: KATHERINE JACOBSON Consult reason: atrial fibrillation History of present illness: The pt is a 48 YO female with a past medical history of paroxysmal atrial fibrillation, HTN, tobacco use. She is previously unknown to our practice and states that she is regularly followed by Dr. Rao in [place]. She presented with complaints of chest pain and palpitations since Thursday. She describes her chest pain as a constant left-sided chest pressure with no clear aggravating or alleviating factors. She denies any SOB, n/v, diaphoresis, dizziness or syncope. She does have a history of AFib and is not on any systemic anticoagulation at home. She states that her tube builder told her that she did not need systemic AC and has never been on systemic AC. She denies any prior CAD, AMI or HF. She has been scheduled for stress test this morning and is evaluated in stress lab. Past History Past Medical History: atrial fib, hypertension Social history: smoking (smokes cigarettes), alcohol abuse (social) Medications and Allergies Allergies Allergy/AdvReac Type Severity Reaction Status Date / Time No Known Allergies Allergy Verified 11/09/18 08:47 Home Medications Medication Instructions Recorded Confirmed Last Taken Type Ferrous Sulfate [Feosol 325 MG tab] 325 mg PO QDAY #60 tablet 05/23/18 11/09/18 Unknown Rx Lisinopril [Zestril TAB] 40 mg PO BID #60 tablet 05/23/18 11/09/18 Unknown Rx hydroCHLOROthiazide [HCTZ] 25 mg PO QDAY #30 tablet 05/23/18 11/09/18 Unknown Rx Acetaminophen [Acetaminophen TAB] 650 mg PO Q4H PRN #2 tablet 11/10/18 Unknown Rx Carvedilol [Coreg] 6.25 mg PO BID #60 tablet 11/10/18 Unknown Rx Docusate Sodium [Colace] 100 mg PO BID PRN #30 capsule 11/10/18 Unknown Rx Famotidine [Pepcid] 20 mg PO BID #30 tablet 11/10/18 Unknown Rx Potassium Chloride [K-Dur] 20 meq PO QDAY #30 tab 11/10/18 11/09/18 Unknown Rx Verapamil ER [Calan SR] 240 mg PO BID #60 tablet 11/10/18 Unknown Rx Active Meds: Active Medications Acetaminophen (Tylenol) 650 mg PO Q4H PRN PRN Reason: Pain MILD(1-3)/Fever >100.5/DIAZ Carvedilol (Coreg) 6.25 mg PO BID@0800,1700 [facility] Last Admin: 11/10/18 08:26 Dose: 6.25 mg Documented by: Enoxaparin Sodium (Lovenox) 40 mg SUB-Q QDAY@2200 [facility] Famotidine (Pepcid) 20 mg PO BID [facility] Last Admin: 11/09/18 22:43 Dose: 20 mg Documented by: Hydrochlorothiazide (Hctz) 25 mg PO QDAY [facility] Hydromorphone HCl (Dilaudid) 0.5 mg IV Q3H PRN PRN Reason: Pain , Severe (7-10) Lisinopril (Zestril) 40 mg PO BID [facility] Last Admin: 11/09/18 22:42 Dose: 40 mg Documented by: Ondansetron HCl (Zofran) 4 mg IV Q8H PRN PRN Reason: Nausea And Vomiting Oxycodone/Acetaminophen (Percocet 5/325) 1 tab PO Q6H PRN PRN Reason: Pain, Moderate (4-6) Potassium Chloride (K-Dur) 20 meq PO QDAY [facility] Last Admin: 11/09/18 22:43 Dose: Not Given Documented by: Sodium Chloride (Sodium Chloride Flush Syringe 10 Ml) 10 ml IV BID [facility] Last Admin: 11/09/18 22:44 Dose: 10 ml Documented by: Sodium Chloride (Sodium Chloride Flush Syringe 10 Ml) 10 ml IV PRN PRN PRN Reason: LINE FLUSH Verapamil HCl (Calan Sr) 240 mg PO BID [facility] Last Admin: 11/09/18 22:43 Dose: 240 mg Documented by: Review of Systems Constitutional: no weight loss, no weight gain, no fever, no chills, no sweats Ears, nose, mouth and throat: no ear pain, no nose pain, no sinus pressure, no sinus pain Cardiovascular: chest pain, palpitations, rapid/irregular heart beat, high blood pressure, no orthopnea, no edema, no syncope, no lightheadedness, no shortness of breath, no dyspnea on exertion, no leg edema Respiratory: no cough, no shortness of breath, no dyspnea on exertion, no congestion, no wheezing, no pain on inspiration Gastrointestinal: no abdominal pain, no nausea, no vomiting, no diarrhea, no constipation, no change in bowel habits Genitourinary Female: no pelvic pain, no flank pain, no dysuria, no urinary frequency, no urgency Musculoskeletal: no neck stiffness, no neck pain, no shooting arm pain, no arm numbness/tingling, no shooting leg pain Integumentary: no rash, no pruritis, no redness, no sores, no wounds Neurological: no head injury, no paralysis, no weakness, no parathesias, no numbness, no tingling, no seizures Psychiatric: no anxiety Endocrine: no cold intolerance, no heat intolerance Hematologic/Lymphatic: no easy bruising, no easy bleeding Allergic/Immunologic: no urticaria, no wheezing Physical Examination Last Vital Signs Temp 97.9 F 11/10/18 08:30 Pulse 54 L 11/10/18 08:30 Resp 18 11/10/18 08:30 BP 181/53 11/10/18 08:30 Pulse Ox 98 11/10/18 08:30 General appearance: no acute distress HEENT: Positive: PERRL, Normocephaly, Mucus Membranes Moist Neck: Positive: neck supple, trachea midline Cardiac: Positive: irregularly irregular, S1/S2 Lungs: Positive: Decreased Breath Sounds Neuro: Positive: Grossly Intact Abdomen: Positive: Soft. Negative: Tender Skin: Negative: Rash, Wound Musculoskeletal: No Pain Extremities: Absent: edema Results 11/10/18 07:36 11/10/18 07:36 Cardiac Enzymes 11/10/18 Range/Units 07:36 AST 15 (5-40) units/L CBC 11/10/18 Range/Units 07:36 WBC 4.6 (4.5-11.0) K/mm3 RBC 4.42 (3.65-5.03) M/mm3 Hgb 11.7 (10.1-14.3) gm/dl Hct 34.5 (30.3-42.9) % Plt Count 164 (140-440) K/mm3 Lymph # 1.2 (1.2-5.4) K/mm3 [place] # 0.5 (0.0-0.8) K/mm3 Eos # 0.1 (0.0-0.4) K/mm3 Baso # 0.0 (0.0-0.1) K/mm3 Comprehensive Metabolic Panel 11/10/18 Range/Units 07:36 Sodium 139 (137-145) mmol/L Potassium 3.9 (3.6-5.0) mmol/L Chloride 103.8 (98-107) mmol/L Carbon Dioxide 25 (22-30) mmol/L BUN 11 (7-17) mg/dL Creatinine 0.5 L (0.7-1.2) mg/dL Glucose 99 (65-100) mg/dL Calcium 9.7 (8.4-10.2) mg/dL AST 15 (5-40) units/L ALT 11 (7-56) units/L Alkaline Phosphatase 83 (35-129) units/L Total Protein 6.7 (6.3-8.2) g/dL Albumin 3.6 L (3.9-5) g/dL - Imaging and Cardiology Echo: pending EKG: report reviewed, image reviewed EKG interpretations - Telemetry EKG Rhythm: Sinus Rhythm - EKG Supraventricular dysrhythmia: atrial fibrillation Assessment and Plan S/p lexiscan MPI stress test this AM which was negative. Pt reports resolution of cp and appears to be in parox AFib with CVR. Cont home cardiac regimen and optimize BPs as necessary. Pt has a known history of parox AFib and is not on any systemic anticoagulation at home. She states that her tube builder told her that she did not need systemic AC and has never been on systemic AC. Will defer initiation of retirement systemic AC to her primary tube builder, Dr. Rao, as she has a borderline CHADS score (female sex and HTN). Currently stable cardiac status. Pt may discharge home from cardiology standpoint. Recommend pt follow up with her primary tube builder within 1-2 weeks of hospital discharge. The patient has been seen in conjunction with Dr. Gonzales who agrees with the assessment and plan of care. - Patient Problems (1) Chest pain Current Visit: Yes Status: Resolved Qualifiers: Chest pain type: unspecified Qualified Code(s): R07.9 - Chest pain, unspecified (2) Accelerated hypertension Current Visit: Yes Status: Acute (3) Paroxysmal atrial fibrillation Current Visit: Yes Status: Chronic (4) Tobacco use Current Visit: Yes Status: Chronic
--- NOTE | 2018-11-10 12:13 | Discharge Summary ---
Providers - Providers Date of Admission: 11/09/18 12:19 Date of discharge: 11/10/18 Attending physician: JANIYA REN 11/10/18 06:39 Consult to Physician [CONS] Routine Comment: Consulting Provider: MANUEL HELM Physician Instructions: Reason For Exam: A fib [facility] Hospital[facility] Condition: Stable Hospital course: Patient is a 48 yo woman with a history of history of paroxysmal atrial fibrillation, HTN, tobacco use and anemia deficiency who presented with chest pains. Discharge Diagnoses: Chest pains, atypical, most likely costochrondritis: supportative care, stress test negative per Cardiology p. 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 Disposition: DC-01 TO HOME OR SELFCARE Time spent for discharge: 35 minutes Core Measure Documentation - Palliative Care Palliative Care/ Comfort Measures: Not Applicable - Core Measures Any of the following diagnoses?: none - VTE Discharge Requirements Deep Vein Thrombosis/Pulmonary Embolism Present on Admission: No Has pt received <5 days of overlap therapy or INR<2.0: No Anticoagulant overlap therapy prescribed at discharge: No Contraindication No Overlap Therapy order at DC: Not Indicated Exam - Physical Exam Narrative exam: Gen: WDWN, NAD, Awake, Alert, Orientated HEENT: NCAT, EOMI, PERRL, OP Clear Neck: supple, no adenopathy, no thyromegaly, no JVD CVS/Heart: irregular irregular, normal S1S2, pulses present bilaterally Chest/Lungs: CTA B, Symmetrical chest expansion, good air entry bilaterally, reproducible cw tenderness GI/Abdomen: soft, NTND, good bowel sounds, no guarding or rebound /Bladder: no suprapubic tenderness, no CVA or paraspinal tenderness Extermity/Skin: no c/c/e, no obvious rash MSK: FROM x 4 Neuro: CN 2-12 grossly intact, no new focal deficits Psych: calm - Constitutional Vitals: Temp Pulse Resp BP Pulse Ox 97.9 F 54 L 18 195/73 98 11/10/18 08:30 11/10/18 08:30 11/10/18 08:30 11/10/18 10:11/10/18 08:30 Plan Activity: other (no strenous activity until cleared by PCP) Diet: low salt Special Instructions: record daily BP diary, smoking cessation Follow up with: PRIMARY CARE, [Referring] - 3-5 Days LIZET HARP MD [Referring] - 7 Days Prescriptions: Verapamil ER [Calan SR] 240 mg PO BID #60 tablet Docusate Sodium [Colace] 100 mg PO BID PRN #30 capsule PRN Reason: Constipation Carvedilol [Coreg] 6.25 mg PO BID #60 tablet
[2018-11-10] MEDS: CALAN SR PO SCH (12:38)
[2018-11-10] MEDS: ZESTRIL PO SCH (12:39)
[2018-11-10] MEDS: PEPCID PO SCH (12:39)
[2018-11-10] MEDS: SODIUM CHLORIDE FLUSH SYRINGE 10 ML IV SCH (12:40)
[2018-11-10] MEDS: K-DUR PO SCH (12:42)
[2018-11-10 14:56] VITALS: BP 170/53
[2018-11-10] MEDS ORDERED: LOVENOX SUB-Q SCH (22:00)
--- NOTE | 2018-11-10 23:03 | Treadmill Report ---
NUCLEAR CARDIAC IMAGING REPORT INDICATION FOR PROCEDURE: Chest pain. Informed consent was obtained. Rest and stress nuclear cardiac imaging was performed following the intravenous administration of 10 and 28 mCi of technetium-99m Myoview respectively per protocol. Vasodilator stress was achieved with the intravenous administration of 0.4 mg of Lexiscan per protocol. Images were acquired in a 180-degree arc from 45 degrees BOYD to 45 degrees LPO. After data acquisition and reconstruction, the images were processed and reoriented into the vertical long, horizontal long, and horizontal short axis slices. A polar color map of the horizontal short axis slices was generated and reviewed. The rotating planar images reviewed in cinematic format on the computer console. Gated SPECT imaging demonstrates a post-stress left ventricular ejection fraction of 58% with normal wall motion. Myocardial perfusion imaging demonstrates no significant cavity change between stress and rest. There is a small, mild, persistent apical perfusion abnormality, which in the absence of an accompanying wall motion abnormality defect is probably artifactual in origin. No significant stress induced reversible perfusion defects are seen. Nuclear cardiac imaging demonstrates grossly normal post-stress left ventricular systolic function with no significant evidence for myocardial ischemia or necrosis. JOB# [id number] ELSA/ANNI
== END 2018-11-10 17:15 | disposition home or self-care (01) ==
LOC: ED 08:45 → 4A 12:19
PROVIDERS: ADMIT Internal Medicine; ATTEND Internal Medicine
DX: R07.89 Other chest pain (principal); I16.0 Hypertensive urgency; I48.2 Chronic atrial fibrillation; E87.1 Hypo-osmolality and hyponatremia; I48.0 Paroxysmal atrial fibrillation; D53.9 Nutritional anemia, unspecified; F17.210 Nicotine dependence, cigarettes, uncomplicated; Z79.899 Other long term (current) drug therapy
CPT/HCPCS: 36415; 71045; 78452; 80048; 80053; 83036; 84484; 85025; 93005; 93010; 93017; 96374; 99284; A9502; G0378; J2785

== ENCOUNTER 2018-11-19 05:30 | Inpatient (IN) | payer SELFPAY ==
--- NOTE | 2018-11-19 06:12 | XRay Report ---
PROCEDURE: XR CHEST ROUTINE 2V TECHNIQUE: PA and lateral chest radiographs were obtained. HISTORY: KAL COMPARISONS: 10/05/2018. FINDINGS: Heart: Normal. Mediastinum/Vessels: Normal. Lungs/Pleural space: There is pulmonary vascular congestion and perihilar pulmonary edema. There is no pleural effusion or pneumothorax.. Bony thorax: No acute osseous abnormality. IMPRESSION: The heart size is normal.. There is pulmonary vascular congestion and perihilar pulmonary edema. There is no pleural effusion or pneumothorax.. This document is electronically signed by Zackery Faith MD., Nov 19 2018 06:10:24 AM ET
--- NOTE | 2018-11-19 07:35 | Emergency Department Report ---
ED Shortness of Breath HPI - General Chief Complaint: Dyspnea/Respdistress Stated Complaint: KAL OR WALK Time Seen by Provider: 11/19/18 07:21 Source: patient Mode of arrival: Ambulatory Limitations: No Limitations - History of Present Illness Initial Comments: Patient is a 48-year-old female that presents to [facility] with complaints of dyspnea on exertion and shortness of breath. Patient states that she is minimally short of breath and resting but when she tries to walk she can barely catch her breath. Patient states her symptoms started last night. They states her symptoms are worsening. Patient states she went to work today was unable to take 10 steps without stopping to breathe. Patient denied chest pressure and chest pain. Patient states her symptoms are better with rest and worse with exertion. Patient denies fever and chills. Patient denies dysuria. Patient denies abdominal pain. Patient states she was in the hospital week ago for chest pain rule out ACS and was discharged home with no findings. Patient states she did not have an echo of her heart. Patient states she does not have a history of congestive heart failure MD Complaint: shortness of breath -: Sudden Consistency: constant Improves With: rest Worsens With: exertion Associated Symptoms: palpitations Treatments Prior to Arrival: none - Related Data Home Oxygen Therapy: No Previous Rx's Medication Instructions Recorded Last Taken Type Carvedilol [Coreg] 6.25 mg PO BID #60 tablet 11/10/18 Unknown Rx Potassium Chloride [K-Dur] 20 meq PO QDAY #30 tab 11/10/18 Unknown Rx Verapamil ER [Calan SR] 240 mg PO BID #60 tablet 11/10/18 Unknown Rx Allergies Allergy/AdvReac Type Severity Reaction Status Date / Time No Known Allergies Allergy Verified 11/09/18 08:47 ED Review of Systems ROS: Stated complaint: KAL OR WALK Other details as noted in HPI Constitutional: denies: chills, fever Eyes: denies: eye pain, eye discharge, vision change ENT: denies: ear pain, throat pain Respiratory: shortness of breath, SOB with exertion, SOB at rest. denies: cough, wheezing Cardiovascular: palpitations, dyspnea on exertion. denies: chest pain Endocrine: no symptoms reported Gastrointestinal: denies: abdominal pain, nausea, diarrhea Genitourinary: denies: urgency, dysuria, discharge Musculoskeletal: denies: back pain, joint swelling, arthralgia Skin: denies: rash, lesions Neurological: denies: headache, weakness, paresthesias Psychiatric: denies: anxiety, depression Hematological/Lymphatic: denies: easy bleeding, easy bruising ED Past Medical Hx - Past Medical History Previous Medical History?: Yes Hx Hypertension: Yes Hx Congestive Heart Failure: No Hx Diabetes: No Hx Asthma: No Hx COPD: No Additional medical history: heart murmer - Surgical History Past Surgical History?: No - Family History Family history: no significant - Social History Smoking Status: Current Every Day Smoker Substance Use Type: None - Medications Home Medications: Home Medications Medication Instructions Recorded Confirmed Last Taken Type Carvedilol [Coreg] 6.25 mg PO BID #60 tablet 11/10/18 11/19/18 Unknown Rx Potassium Chloride [K-Dur] 20 meq PO QDAY #30 tab 11/10/18 11/19/18 Unknown Rx Verapamil ER [Calan SR] 240 mg PO BID #60 tablet 11/10/18 11/19/18 Unknown Rx ED Physical Exam - General Limitations: No Limitations General appearance: alert, in distress - Head Head exam: Present: atraumatic, normocephalic - Eye Eye exam: Present: normal appearance - ENT ENT exam: Present: mucous membranes moist - Neck Neck exam: Present: normal inspection - Respiratory Respiratory exam: Present: normal lung sounds bilaterally, respiratory distress. Absent: wheezes, rales, rhonchi - Cardiovascular Cardiovascular Exam: Present: regular rate, normal rhythm. Absent: systolic murmur, diastolic murmur, rubs, gallop - GI/Abdominal GI/Abdominal exam: Present: soft, normal bowel sounds. Absent: distended, tenderness, guarding - Rectal Rectal exam: Present: deferred - Extremities Exam Extremities exam: Present: normal inspection - Back Exam Back exam: Present: normal inspection - Neurological Exam Neurological exam: Present: alert, oriented X3 - Psychiatric Psychiatric exam: Present: normal affect, normal mood - Skin Skin exam: Present: warm, dry, intact, normal color. Absent: rash ED Course Vital Signs 11/19/18 11/19/18 11/19/18 05:35 07:34 07:45 Temperature 97.9 F Pulse Rate 63 47 L Respiratory 18 12 Rate Blood Pressure 168/67 184/77 Blood Pressure [Left] O2 Sat by Pulse 97 100 97 Oximetry 11/19/18 11/19/18 11/19/18 08:01 08:15 08:37 Temperature Pulse Rate 50 L 51 L Respiratory 29 H 23 Rate Blood Pressure 154/63 154/63 Blood Pressure [Left] O2 Sat by Pulse 92 99 100 Oximetry 11/19/18 11/19/18 11/19/18 09:01 09:31 10:01 Temperature Pulse Rate 53 L 47 L 48 L Respiratory 8 L 22 16 Rate Blood Pressure 161/68 173/79 154/72 Blood Pressure [Left] O2 Sat by Pulse 96 96 99 Oximetry 11/19/18 11/19/18 11/19/18 10:41 11:01 11:21 Temperature 98.2 F Pulse Rate 45 L 50 L 44 L Respiratory 10 L 16 Rate Blood Pressure 173/79 160/73 Blood Pressure 166/79 [Left] O2 Sat by Pulse 98 97 Oximetry - Reevaluation(s) Reevaluation #1: Discussed all results with patient. Patient will be admitted to the hospitalist service. CTA prior to admission. Patient agrees to plan of care. 11/19/18 09:45 Reevaluation #2: A short resting comfortably. Patient states her shortness of breath is improving as she rests. Discussed all results with patient. Patient will be admitted to the hospitalist service. Patient agrees to plan of care. 11/19/18 10:43 - Consultations Consultation #1: Hospitalist consulted for admission. Hospitalist to admit patient. Hospitalist to assume care patient. 11/19/18 10:43 ED Medical Decision Making - Lab Data Result diagrams: 11/19/18 07:54 11/19/18 07:54 - EKG Data -: EKG Interpreted by In EKG shows normal: sinus rhythm, axis, intervals, QRS complexes, ST-T waves Rate: bradycardia - Radiology Data Radiology results: report reviewed, image reviewed AP CHEST: HISTORY: Dyspnea Mild pulmonary venous congestion and borderline heart size are suspected. The lungs are generally clear otherwise. No evidence for pneumonia, CHF or pneumothorax. The bony structures are grossly intact. No significant change since earlier today at 0556 hours. PROCEDURE: XR CHEST ROUTINE 2V TECHNIQUE: PA and lateral chest radiographs were obtained. HISTORY: KAL COMPARISONS: 10/05/2018. FINDINGS: Heart: Normal. Mediastinum/Vessels: Normal. Lungs/Pleural space: There is pulmonary vascular congestion and perihilar pulmonary edema. There is no pleural effusion or pneumothorax.. Bony thorax: No acute osseous abnormality. IMPRESSION: The heart size is normal.. There is pulmonary vascular congestion and perihilar pulmonary edema. There is no pleural effusion or pneumothorax.. CTA CHEST: HISTORY: Short of breath, dyspnea on exertion. COMPARISON: 05/23/18. TECHNIQUE: Helical CT in 1.25mm intervals following IV contrast. Pulmonary embolus protocol. Sagittal and coronal reformatted images. Rotational MIP images. FINDINGS: Contrast bolus is satisfactory. No pulmonary embolus is identified. Thyroid gland: Normal. Tracheobronchial tree: Normal. Esophagus: Normal. Heart: Mild cardiomegaly. Pericardium: Normal. Mediastinum: There are 2 slightly prominent lymph nodes in the aortopulmonary window measuring up to 3.2 x 1.6 cm in axial plane. No additional enlarged lymph nodes are identified. These are unchanged since the previous exam. Lung Boswell: Within normal limits. Pleural Spaces: Small bilateral layering pleural effusions are identified. Musculoskeletal: Intact. No fracture or suspicious bony lesion. Mild thoracic spondylosis. IMPRESSION: No evidence for pulmonary embolus. Findings consistent with mild CHF. No significant change since 05/23/18. - Medical Decision Making Patient is a 48-year-old female that presents emergency room with complaints of shortness of breath and discharged on exertion. Patient found to have CHF exacerbation. Patient does not have a history of CHF so to new onset CHF. EKG unremarkable. Chest x-ray shows vascular congestion. CT is negative for PE. Labs unremarkable for elevated BNP and elevated d-dimer. - Differential Diagnosis CHF exacerbation. Shortness of breath. exertion. pe. Critical Care Time: Yes Critical care attestation.: If time is entered above; I have spent that time in minutes in the direct care of this critically ill patient, excluding procedure time. Critical Care Time: 35 minutes ED Disposition Clinical Impression: SOB (shortness of breath), MCGUIRE (dyspnea on exertion), New onset of congestive heart failure Hypertension Qualifiers: Hypertension type: essential hypertension Qualified Code(s): I10 - Essential (primary) hypertension Disposition: OP ADMIT IP TO THIS HOSP Is pt being admited?: Yes Does the pt Need Aspirin: No Condition: Critical Time of Disposition: 10:46
--- NOTE | 2018-11-19 08:03 | XRay Report ---
AP CHEST: HISTORY: Dyspnea Mild pulmonary venous congestion and borderline heart size are suspected. The lungs are generally clear otherwise. No evidence for pneumonia, CHF or pneumothorax. The bony structures are grossly intact. No significant change since earlier today at 0556 hours.
[2018-11-19 08:07] LABS: Basophils # (Auto) 0.1 K/mm3 (0.0-0.1); Basophils % (Auto) 1.1 % (0.0-1.8); Eosinophils # (Auto) 0.1 K/mm3 (0.0-0.4); Eosinophils % (Auto) 1.8 % (0.0-4.3); Hematocrit 36.9 % (30.3-42.9); Hemoglobin 12.1 gm/dl (10.1-14.3); Lymphocytes # (Auto) 1.3 K/mm3 (1.2-5.4); Lymphocytes % (Auto) 21.2 % (13.4-35.0); Mean Corpuscular HGB Conc 33 % (30-34); Mean Corpuscular Volume 81 fl (79-97); Monocytes # (Auto) 0.5 K/mm3 (0.0-0.8); Platelet Count 226 K/mm3 (140-440); Red Blood Count 4.53 M/mm3 (3.65-5.03); Red Cell Distribution Width 22.6 % (13.2-15.2)
[2018-11-19 08:30] LABS: Alanine Aminotransferase 26 units/L (7-56); Albumin 3.9 g/dL (3.9-5); BUN/Creatinine Ratio 24; Blood Urea Nitrogen 12 mg/dL (7-17); Calcium 9.6 mg/dL (8.4-10.2); Hemolysis Index 1
[2018-11-19 08:31] LABS: Creatine Kinase MB < 1.0 ng/mL (0.0-4.0)
[2018-11-19] MEDS ORDERED: LASIX IV ONE (10:45)
--- NOTE | 2018-11-19 10:57 | Cat Scan Report ---
CTA CHEST: HISTORY: Short of breath, dyspnea on exertion. COMPARISON: 05/23/18. TECHNIQUE: Helical CT in 1.25mm intervals following IV contrast. Pulmonary embolus protocol. Sagittal and coronal reformatted images. Rotational MIP images. FINDINGS: Contrast bolus is satisfactory. No pulmonary embolus is identified. Thyroid gland: Normal. Tracheobronchial tree: Normal. Esophagus: Normal. Heart: Mild cardiomegaly. Pericardium: Normal. Mediastinum: There are 2 slightly prominent lymph nodes in the aortopulmonary window measuring up to 3.2 x 1.6 cm in axial plane. No additional enlarged lymph nodes are identified. These are unchanged since the previous exam. Lung Boswell: Within normal limits. Pleural Spaces: Small bilateral layering pleural effusions are identified. Musculoskeletal: Intact. No fracture or suspicious bony lesion. Mild thoracic spondylosis. IMPRESSION: No evidence for pulmonary embolus. Findings consistent with mild CHF. No significant change since 05/23/18.
--- NOTE | 2018-11-19 11:09 | History and Physical Report ---
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 Patient states she went to work today and was unable to take 10 steps without stopping to breathe. She denies any chest pain, palpitations, n/v, diaphoresis, dizziness or syncope and any prior CAD, AMI or HF. She is getting admitted for further evaluation and management. Lexiscan MPI stress test done 11/10/2018 was negative for ischemia, EF 58%. Past History Past Medical History: atrial fib, hypertension Past surgical History: None PAST family History: HTN Social history: smoking Review of System: Constitutional: no fever, no chills, no weight loss Ears, eyes, nose, mouth and throat: no nasal congestion, no nasal discharge, no sinus pressure, no vision change, no red eye. Neck: No neck pain or rigidity. Cardiovascular: No chest pain, no orthopnea, no palpitations, no leg swelling Respiratory: No shortness of breath, no cough, no congestion, no wheezing Gastrointestinal: no abdominal pain, no nausea, no vomiting Genitourinary : no dysuria, no hematuria Musculoskeletal: no joint swelling or muscle ache Integumentary: no rash, no pruritis Neurological: no parathesias, no numbness, no tingling Endocrine: no cold or heat intolerance, no polyuria or polydipsia Hematologic/Lymphatic: no easy bruising, no easy bleeding, no gland swelling Allergic/Immunologic: no urticaria, no angioedema. Medications and Allergies Allergies Allergy/AdvReac Type Severity Reaction Status Date / Time No Known Allergies Allergy Verified 11/09/18 08:47 Home Medications Medication Instructions Recorded Confirmed Last Taken Type Carvedilol [Coreg] 6.25 mg PO BID #60 tablet 11/10/18 11/19/18 Unknown Rx Verapamil ER [Calan SR] 240 mg PO BID #60 tablet 11/10/18 11/19/18 Unknown Rx Apixaban [Eliquis] 5 mg PO BID #60 tablet 11/22/18 Unknown Rx Aspirin EC 81 mg PO QDAY #100 tablet 11/22/18 Unknown Rx Furosemide [Lasix TAB] 20 mg PO QDAY #30 tablet 11/22/18 Unknown Rx Lisinopril [Zestril TAB] 10 mg PO QDAY #30 tablet 11/22/18 Unknown Rx Metoprolol [Lopressor TAB] 50 mg PO Q12H #60 tablet 11/22/18 Unknown Rx Potassium Chloride [K-Dur] 10 meq PO QDAY #30 tab 11/22/18 Unknown Rx hydrALAZINE [Apresoline TAB] 50 mg PO Q8HR #90 tablet 11/22/18 Unknown Rx Exam - Physical Exam Narrative exam: GENERAL: well-developed and well-nourished AAF lying on bed appeared to be in no discomfort. HEENT: Normocephalic. Atraumatic. No conjunctival congestion or icterus. Patient has moist mucous membranes. NECK: Supple. Trachea midline. CHEST/LUNGS: few crackles auscultated bilaterally, breathing nonlabored. No wheezes or rhonchi. HEART/CARDIOVASCULAR: Regular in rate and rhythm. S1 and S2 positive. ABDOMEN: Abdomen is soft, nontender. Patient has normal bowel sounds. SKIN: There is no rash. Warm and dry. NEURO: No focal motor deficit. Follows command. MUSCULOSKELETAL: No joint effusion or tenderness. EXTRIMITY: No edema, no cyanosis or clubbing. PSYCH: Cooperative. - Constitutional Vitals: Temp Pulse Resp BP Pulse Ox 97.9 F 48 L 16 154/72 99 11/19/18 05:35 11/19/18 10:01 11/19/18 10:01 11/19/18 10:01 11/19/18 10:01 Results - Labs CBC & Chem 7: 11/22/18 05:28 11/22/18 05:28 Labs: Abnormal lab results 11/19/18 11/19/18 11/19/18 Range/Units 07:54 07:54 07:54 MCH 27 L (28-32) pg RDW 22.6 H (13.2-15.2) % [facility] % (Auto) 9.0 H (0.0-7.3) % D-Dimer 287.96 H (0-234) ng/mlDDU Sodium 136 L (137-145) mmol/L Creatinine 0.5 L (0.7-1.2) mg/dL NT-Pro-B Natriuret Pep (0-900) pg/mL 11/19/18 Range/Units 07:54 MCH (28-32) pg RDW (13.2-15.2) % [facility] % (Auto) (0.0-7.3) % D-Dimer (0-234) ng/mlDDU Sodium (137-145) mmol/L Creatinine (0.7-1.2) mg/dL NT-Pro-B Natriuret Pep 1171 H (0-900) pg/mL - Imaging and Cardiology CT scan - chest: report reviewed (no PE, MILD CHF) Assessment and Plan Possible CHF exacerbation - Stress test from the last admission showed preserved EF chest x-ray and CT chest this admission showed finding consistent with mild pulmonary congestion, patient also has elevated BNP - admit to telemetry bed - monitor with serial CE and EKG - will place on Aspirin, statin, and Lasix IV - order 2D echo and consult cardiology - cardiac diet now, daily weights, monitor in's and O's - provide DVT Px with lovenox Sinus bradycardia, hold the beta juany and centrally acting calcium channel juany - Continue to monitor clinically Hypertension, uncontrolled - Placed on Norvasc and hydralazine for now paroxysmal atrial fib, start on therapeutic lovenox, PO AC before d/c DVT prophylaxis, Lovenox
[2018-11-19] MEDS ORDERED: APRESOLINE IV PRN (13:44)
[2018-11-19] MEDS: HALFPRIN EC PO SCH (13:49)
[2018-11-19] MEDS: NORVASC PO SCH (13:50)
[2018-11-19] MEDS ORDERED: COREG PO SCH ×3 (14:00→22:00)
[2018-11-19] MEDS ORDERED: CALAN SR PO SCH (14:00)
[2018-11-19] MEDS ORDERED: APRESOLINE PO SCH (14:00)
[2018-11-19] MEDS ORDERED: LASIX IV SCH (14:00)
--- NOTE | 2018-11-19 14:08 | Consultation ---
History of Present Illness Consult date: 11/19/18 Requesting physician: BRIANNA ESPOSITO Consult reason: congestive heart failure History of present illness: The pt is a 48 YO female with a past medical history of paroxysmal atrial fibrillation, HTN, tobacco use. She has been seen by our practice on a prior hospitalization and states that she is regularly followed by ceramic tile installer Dr. Rao in [place]. She presented with complaints of progressively worsening orthopnea, SOB and MCGUIRE for 1 day prior to arrival. Patient states she went to work today was unable to take 10 steps without stopping to breathe. She denies any chest pain, palpitations, n/v, diaphoresis, dizziness or syncope. She does have a history of AFib and is not on any systemic anticoagulation at home. She states that her ceramic tile installer told her that she did not need systemic AC and has never been on systemic AC. She denies any prior CAD, AMI or HF. Lexiscan MPI stress test done 11/10/2018 was negative for ischemia, EF 58%. Past History Past Medical History: atrial fib, hypertension Social history: smoking Medications and Allergies Allergies Allergy/AdvReac Type Severity Reaction Status Date / Time No Known Allergies Allergy Verified 11/09/18 08:47 Home Medications Medication Instructions Recorded Confirmed Last Taken Type Carvedilol [Coreg] 6.25 mg PO BID #60 tablet 11/10/18 11/19/18 Unknown Rx Potassium Chloride [K-Dur] 20 meq PO QDAY #30 tab 11/10/18 11/19/18 Unknown Rx Verapamil ER [Calan SR] 240 mg PO BID #60 tablet 11/10/18 11/19/18 Unknown Rx Active Meds: Active Medications Amlodipine Besylate (Norvasc) 10 mg PO QDAY [facility] Last Admin: 11/19/18 13:50 Dose: 10 mg Documented by: Aspirin (Halfprin Ec) 81 mg PO QDAY [facility] Last Admin: 11/19/18 13:49 Dose: 81 mg Documented by: Enoxaparin Sodium (Lovenox) 40 mg SUB-Q QDAY@2200 [facility] Furosemide (Lasix) 20 mg IV DAILY@0600 [facility] Hydralazine HCl (Apresoline) 5 mg IV Q30MIN PRN PRN Reason: HTN SYS>180 JIMBO>100 Hydralazine HCl (Apresoline) 50 mg PO Q8HR [facility] Potassium Chloride (K-Dur) 20 meq PO QDAY [facility] Review of Systems Constitutional: no weight loss, no weight gain, no fever, no chills, no sweats Ears, nose, mouth and throat: no ear pain, no nose pain, no sinus pressure, no sinus pain Cardiovascular: orthopnea, shortness of breath, dyspnea on exertion, decreased exercise tolerance, no chest pain, no palpitations, no rapid/irregular heart beat, no edema, no syncope, no lightheadedness Respiratory: shortness of breath, dyspnea on exertion, no cough, no congestion, no wheezing, no pain on inspiration Gastrointestinal: no abdominal pain, no nausea, no vomiting, no diarrhea, no constipation, no change in bowel habits Genitourinary Female: no pelvic pain, no flank pain, no dysuria, no urinary frequency, no urgency Musculoskeletal: no neck stiffness, no neck pain, no shooting arm pain, no arm numbness/tingling, no low back pain, no shooting leg pain Integumentary: no rash, no pruritis, no redness, no sores, no wounds Neurological: no head injury, no paralysis, no weakness, no parathesias, no numbness, no tingling Psychiatric: no anxiety Endocrine: no cold intolerance, no heat intolerance Hematologic/Lymphatic: no easy bruising, no easy bleeding Allergic/Immunologic: no urticaria, no wheezing Physical Examination Vital Signs Temp Pulse Resp BP Pulse Ox 97.9 F 63 18 168/67 97 11/19/18 05:35 11/19/18 05:35 11/19/18 05:35 11/19/18 05:35 11/19/18 05:35 General appearance: no acute distress HEENT: Positive: PERRL, Normocephaly, Mucus Membranes Moist Neck: Positive: neck supple, trachea midline Cardiac: Positive: Reg Rate and Rhythm, S1/S2 Lungs: Positive: Decreased Breath Sounds Neuro: Positive: Grossly Intact Abdomen: Positive: Soft. Negative: Tender Skin: Negative: Rash, Wound Musculoskeletal: No Pain Extremities: Absent: edema Results 11/19/18 07:54 11/19/18 07:54 Cardiac Enzymes 11/19/18 Range/Units 07:54 AST 31 (5-40) units/L CK-MB (CK-2) < 1.0 (0.0-4.0) ng/mL CBC 11/19/18 Range/Units 07:54 WBC 6.0 (4.5-11.0) K/mm3 RBC 4.53 (3.65-5.03) M/mm3 Hgb 12.1 (10.1-14.3) gm/dl Hct 36.9 (30.3-42.9) % Plt Count 226 (140-440) K/mm3 Lymph # 1.3 (1.2-5.4) K/mm3 Becker # 0.5 (0.0-0.8) K/mm3 Eos # 0.1 (0.0-0.4) K/mm3 Baso # 0.1 (0.0-0.1) K/mm3 Comprehensive Metabolic Panel 11/19/18 Range/Units 07:54 Sodium 136 L (137-145) mmol/L Potassium 4.7 (3.6-5.0) mmol/L Chloride 102.9 (98-107) mmol/L Carbon Dioxide 22 (22-30) mmol/L BUN 12 (7-17) mg/dL Creatinine 0.5 L (0.7-1.2) mg/dL Glucose 96 (65-100) mg/dL Calcium 9.6 (8.4-10.2) mg/dL AST 31 (5-40) units/L ALT 26 (7-56) units/L Alkaline Phosphatase 96 (35-129) units/L Total Protein 7.4 (6.3-8.2) g/dL Albumin 3.9 (3.9-5) g/dL - Imaging and Cardiology Echo: pending EKG: report reviewed, image reviewed EKG interpretations - Telemetry EKG Rhythm: Sinus Rhythm - EKG Sinus rhythms and dysrhythmias: sinus rhythm Assessment and Plan DDimer elevated - chest CTA negative for PE. Await echo. Agree with IV diuresis. Pt noted to be in sinus bradycardia with HR 40s - 50s on telemetry and thus her home verapamil and coreg has been held and hydralazine and amlodipine has been initiated. Obtain thyroid profile. Pt has a known history of parox AFib and is not on any systemic anticoagulation at home. She states that her ceramic tile installer told her that she did not need systemic AC and has never been on systemic AC. Pt with borderline CHADS score in the past (female sex and HTN), now with HF. Await echo and initiate full dosage lovenox and consider initiation of NOAC prior to discharge. The patient has been seen in conjunction with Dr. Johnson who agrees with the assessment and plan of care. - Patient Problems (1) Acute heart failure Current Visit: Yes Status: Acute (2) Paroxysmal atrial fibrillation Current Visit: Yes Status: Chronic (3) Accelerated hypertension Current Visit: Yes Status: Acute (4) Tobacco use Current Visit: Yes Status: Chronic
[2018-11-19] MEDS: APRESOLINE PO SCH ×3 (17:05→21:12)
[2018-11-19] MEDS: NORCO 5/325 PO PRN (20:55)
[2018-11-19] MEDS: LOVENOX SUB-Q SCH ×2 (20:58→21:13)
[2018-11-19] MEDS ORDERED: LOVENOX SUB-Q SCH (22:00)
[2018-11-20] MEDS: APRESOLINE PO SCH ×3 (05:20→21:27)
[2018-11-20] MEDS: LASIX IV SCH (05:20)
[2018-11-20] MEDS ORDERED: LASIX IV SCH (06:00)
[2018-11-20 06:34] LABS: BUN/Creatinine Ratio 16; Blood Urea Nitrogen 8 mg/dL (7-17); Calcium 10.5 mg/dL (8.4-10.2); Hemolysis Index 0
[2018-11-20] MEDS: LOVENOX SUB-Q SCH ×2 (09:21→21:28)
[2018-11-20] MEDS: K-DUR PO SCH (09:21)
[2018-11-20] MEDS: NORVASC PO SCH (09:21)
[2018-11-20] MEDS: HALFPRIN EC PO SCH (09:21)
[2018-11-20] MEDS: NORCO 5/325 PO PRN ×2 (09:23→22:39)
--- NOTE | 2018-11-20 10:52 | Progress Note ---
Assessment and Plan Shortness of breath possibly from congestive heart failure. Systolic function pending evaluation with echo - Stress test done on 11/10/2018 showed preserved EF chest x-ray and CT chest this admission showed finding consistent with mild pulmonary congestion, patient also has elevated BNP - monitor with serial CE and EKG - Continue Lasix, Aspirin, ACEI, statin, -Follow up with 2D echo - Discussed with cardiology - cardiac diet now, daily weights, strict in's and O's Sinus bradycardia, hold the beta juany and centrally acting calcium channel juany - Continue to monitor clinically Hypertension, uncontrolled - Placed on Norvasc and hydralazine for now Paroxysmal atrial fib, start on therapeutic lovenox, PO AC before d/c Patient is full code DVT prophylaxis, Lovenox Time spent 30 minutes Subjective Date of service: 11/20/18 Principal diagnosis: shortness of breath, hypertension, paroxysmal atrial fib Interval history: Patient is seen and examined. Denies any chest pain. No overnight event reported. Discussed with patient's nurse. Objective - Exam Narrative Exam: Constitutional: Well-nourished well-developed. In no distress Head: Normocephalic atraumatic Eyes: Pupils are equal round and reactive to light Nose: No enlarged turbinates, no septal deviation. Mouth: Moist mucous membranes. Neck: Supple no thyromegaly. No bruit. No JVD Heart: Regular rate and rhythm, S1-S2 normal. No rubs murmurs or gallop Lungs: Clear to auscultation bilaterally. no rales or rhonchi Abdomen: Soft, nontender. Bowel sound are present. Extremities: No edema, no cyanosis, no clubbing. Neuro: Alert oriented Oriented x3. No focal sensory or motor deficit. Skin: No rashes or hyperpigmented spots Musculoskeletal system: No joint pain or swelling Hematological: No petechia or subcutanous hemorrhages. Immunological: No multiple septic spots on the skin Lymphatic: No generalized lymphadenopathy Psychiatry: Euthymic. Calm. - Constitutional Vitals: Vital Signs - 12hr 11/19/18 11/19/18 11/20/18 23:44 23:50 03:52 Temperature 98.0 F 97.6 F Pulse Rate 63 59 L 59 L Pulse Rate [ From Monitor] Respiratory 19 18 Rate Blood Pressure 174/59 159/80 O2 Sat by Pulse 99 95 Oximetry 11/20/18 11/20/18 11/20/18 08:14 08:44 09:54 Temperature 97.9 F Pulse Rate 74 79 Pulse Rate [ 79 From Monitor] Respiratory 18 18 Rate Blood Pressure 146/72 O2 Sat by Pulse 97 97 Oximetry - Labs CBC & Chem 7: 11/19/18 07:54 11/20/18 05:34 Labs: Abnormal lab results 11/20/18 Range/Units 05:34 Creatinine 0.5 L (0.7-1.2) mg/dL Calcium 10.5 H (8.4-10.2) mg/dL
--- NOTE | 2018-11-20 11:17 | Progress Note ---
Assessment and Plan clinically improved cont iv lasix await tte consider noac once tte reviewed - Patient Problems (1) Accelerated hypertension Current Visit: Yes Status: Acute (2) Acute heart failure Current Visit: Yes Status: Acute (3) MCGUIRE (dyspnea on exertion) Current Visit: Yes Status: Acute (4) New onset of congestive heart failure Current Visit: Yes Status: Acute (5) SOB (shortness of breath) Current Visit: Yes Status: Acute (6) Paroxysmal atrial fibrillation Current Visit: Yes Status: Chronic (7) Tobacco use Current Visit: Yes Status: Chronic (8) A-fib Current Visit: No Status: Acute (9) Hypertensive urgency Current Visit: No Status: Acute Subjective Date of service: 11/20/18 Interval history: still sob, but sig better sister at bedside Objective Vital Signs Temp Pulse Pulse Pulse Resp BP BP 11/20/18 09:54 79 18 11/20/18 08:44 97.9 F 79 18 146/72 11/20/18 08:14 74 11/20/18 03:52 97.6 F 59 L 18 159/80 11/19/18 23:50 59 L 11/19/18 23:44 98.0 F 63 19 174/59 11/19/18 19:46 98.0 F 60 16 159/57 11/19/18 17:18 98.0 F 18 119/56 11/19/18 17:05 54 L 187/77 11/19/18 17:03 98.1 F 18 187/77 11/19/18 13:50 44 L 185/63 11/19/18 12:50 44 L 11/19/18 12:37 97.4 F L 18 185/63 11/19/18 11:21 98.2 F 44 L 16 166/79 Pulse Ox 11/20/18 09:54 97 11/20/18 08:44 97 11/20/18 08:14 11/20/18 03:52 95 11/19/18 23:50 11/19/18 23:44 99 11/19/18 19:46 99 11/19/18 17:18 11/19/18 17:05 97 11/19/18 17:03 11/19/18 13:50 11/19/18 12:50 11/19/18 12:37 11/19/18 11:21 97 - Physical Examination HEENT: Positive: PERRL, Normocephaly, Mucus Membranes Moist Neck: Positive: neck supple, trachea midline Neuro: Positive: Grossly Intact Abdomen: Positive: Soft. Negative: Tender Skin: Negative: Rash, Wound Musculoskeletal: No Pain Extremities: Absent: edema - Labs and Meds Comprehensive Metabolic Panel 11/20/18 Range/Units 05:34 Sodium 138 (137-145) mmol/L Potassium 3.9 (3.6-5.0) mmol/L Chloride 100.9 (98-107) mmol/L Carbon Dioxide 26 (22-30) mmol/L BUN 8 (7-17) mg/dL Creatinine 0.5 L (0.7-1.2) mg/dL Glucose 87 (65-100) mg/dL Calcium 10.5 H (8.4-10.2) mg/dL - Imaging and Cardiology EKG: report reviewed, image reviewed Echo: pending - EKG Sinus rhythms and dysrhythmias: sinus rhythm
[2018-11-21] MEDS: APRESOLINE PO SCH ×3 (06:09→21:58)
[2018-11-21] MEDS: LASIX IV SCH (06:09)
[2018-11-21] MEDS: NORCO 5/325 PO PRN ×2 (06:18→11:53)
[2018-11-21] MEDS: LOVENOX SUB-Q SCH ×2 (10:43→21:58)
[2018-11-21] MEDS: NORVASC PO SCH (10:43)
[2018-11-21] MEDS: K-DUR PO SCH (10:43)
[2018-11-21] MEDS: HALFPRIN EC PO SCH (10:43)
--- NOTE | 2018-11-21 11:14 | Progress Note ---
Assessment and Plan Shortness of breath possibly from congestive heart failure. Systolic function pending evaluation with echo - Stress test done on 11/10/2018 showed preserved EF chest x-ray and CT chest this admission showed finding consistent with mild pulmonary congestion, patient also has elevated BNP - Continue Lasix, Aspirin, ACEI, statin, -Follow up with 2D echo - Discussed with cardiology - cardiac diet now, daily weights, strict in's and O's Sinus bradycardia, hold the beta juany and centrally acting calcium channel juany - Continue to monitor clinically Hypertension, uncontrolled - Placed on hydralazine for now Paroxysmal atrial fib, start on therapeutic lovenox, PO AC before discharge Patient is full code DVT prophylaxis, Lovenox Time spent 30 minutes Subjective Date of service: 11/21/18 Principal diagnosis: shortness of breath, hypertension, paroxysmal atrial fib Interval history: Patient is seen and examined. Denies any chest pain. No overnight event reported. Discussed with patient's nurse. Objective - Exam Narrative Exam: Constitutional: Well-nourished well-developed. In no distress Head: Normocephalic atraumatic Eyes: Pupils are equal round and reactive to light Nose: No enlarged turbinates, no septal deviation. Mouth: Moist mucous membranes. Neck: Supple no thyromegaly. No bruit. No JVD Heart: Regular rate and rhythm, S1-S2 normal. No rubs murmurs or gallop Lungs: Clear to auscultation bilaterally. no rales or rhonchi Abdomen: Soft, nontender. Bowel sound are present. Extremities: No edema, no cyanosis, no clubbing. Neuro: Alert oriented Oriented x3. No focal sensory or motor deficit. Skin: No rashes or hyperpigmented spots Musculoskeletal system: No joint pain or swelling Hematological: No petechia or subcutanous hemorrhages. Immunological: No multiple septic spots on the skin Lymphatic: No generalized lymphadenopathy Psychiatry: Euthymic. Calm. - Constitutional Vitals: Vital Signs - 12hr 11/20/18 11/21/18 11/21/18 23:55 04:32 05:10 Temperature 98.5 F 98.1 F Pulse Rate 65 60 57 L Respiratory 18 18 Rate Blood Pressure 142/62 175/78 O2 Sat by Pulse 98 100 Oximetry 11/21/18 11/21/18 06:09 08:29 Temperature 97.7 F Pulse Rate 65 63 Respiratory 18 Rate Blood Pressure 175/78 141/66 O2 Sat by Pulse 95 Oximetry - Labs CBC & Chem 7: 11/19/18 07:54 11/21/18 12:42
--- NOTE | 2018-11-21 12:07 | Progress Note ---
Assessment and Plan clinically improved change lasix to po not on bb due to baseline sb d/c amlodipine start juan await tte consider noac once tte reviewed - Patient Problems (1) Accelerated hypertension Current Visit: Yes Status: Acute (2) Acute heart failure Current Visit: Yes Status: Acute (3) MCGUIRE (dyspnea on exertion) Current Visit: Yes Status: Acute (4) New onset of congestive heart failure Current Visit: Yes Status: Acute (5) SOB (shortness of breath) Current Visit: Yes Status: Acute (6) Paroxysmal atrial fibrillation Current Visit: Yes Status: Chronic (7) Tobacco use Current Visit: Yes Status: Chronic (8) A-fib Current Visit: No Status: Acute (9) Hypertensive urgency Current Visit: No Status: Acute Subjective Date of service: 11/21/18 Principal diagnosis: shortness of breath, hypertension, paroxysmal atrial fib Interval history: still sob, but sig better fiance at bedside Objective Vital Signs Temp Pulse Resp BP Pulse Ox 11/21/18 08:29 97.7 F 63 18 141/66 95 11/21/18 06:09 65 175/78 11/21/18 05:10 57 L 11/21/18 04:32 98.1 F 60 18 175/78 100 11/20/18 23:55 98.5 F 65 18 142/62 98 11/20/18 21:27 68 145/56 11/20/18 19:38 98.2 F 59 L 18 145/56 100 11/20/18 19:15 67 11/20/18 15:56 98.3 F 59 L 18 122/55 98 11/20/18 13:40 59 L 143/55 11/20/18 13:22 59 L 143/55 97 - Physical Examination HEENT: Positive: PERRL, Normocephaly, Mucus Membranes Moist Neck: Positive: neck supple, trachea midline Neuro: Positive: Grossly Intact Abdomen: Positive: Soft. Negative: Tender Skin: Negative: Rash, Wound Musculoskeletal: No Pain Extremities: Absent: edema - Imaging and Cardiology EKG: report reviewed, image reviewed Echo: pending - EKG Sinus rhythms and dysrhythmias: sinus rhythm
[2018-11-21 13:34] LABS: BUN/Creatinine Ratio 25; Blood Urea Nitrogen 15 mg/dL (7-17); Calcium 11.2 mg/dL (8.4-10.2); Hemolysis Index 3
[2018-11-21] MEDS: ZESTRIL PO SCH (17:38)
[2018-11-22] MEDS: NORCO 5/325 PO PRN (00:15)
[2018-11-22] MEDS: APRESOLINE PO SCH ×2 (05:13→15:05)
[2018-11-22 06:14] LABS: Hemoglobin 14.7 gm/dl (10.1-14.3); Mean Corpuscular HGB Conc 33 % (30-34); Mean Corpuscular Volume 81 fl (79-97); Platelet Count 275 K/mm3 (140-440); Red Blood Count 5.54 M/mm3 (3.65-5.03)
[2018-11-22 06:26] LABS: Red Cell Distribution Width 22.3 % (13.2-15.2)
[2018-11-22 06:29] LABS: Hematocrit 41.1 % (30.3-42.9)
[2018-11-22] MEDS ORDERED: MORPHINE IV PRN (06:45)
--- NOTE | 2018-11-22 06:52 | Event Note ---
Date: 11/22/18 Called and advised about patient with chest pain, 10/10 left submammary area, better with palpation to the area. Per nursing staff, HR has waxed and wanned through the night with intermitted Afib noted. Patient has known hx. Repeat EKG shows Atrial fibrillation On exam pain anxious. No radiation to chest pain. Plan Morphin x 1 Continue o2 per protocol and wean as tolerated Check cardiac enzyme Ekg Shows no evidence of ST changes Nitro sl if BP tolerates Cardiology already on the case, if any changes will notify them Repeat chest xray continue full dose lovenox -pt already on it.
[2018-11-22] MEDS ORDERED: BENADRYL IV ONE (07:06)
[2018-11-22 07:08] LABS: Alanine Aminotransferase 15 units/L (7-56); Albumin 3.7 g/dL (3.9-5); BUN/Creatinine Ratio 30; Blood Urea Nitrogen 15 mg/dL (7-17); Calcium 10.8 mg/dL (8.4-10.2); Hemolysis Index 28
[2018-11-22] MEDS ORDERED: MORPHINE IV ONE ×2 (07:15)
--- NOTE | 2018-11-22 07:46 | XRay Report ---
PROCEDURE: XR CHEST 1V AP TECHNIQUE: Chest radiograph single view. HISTORY: shortness of breath COMPARISONS: 11/19/2018 . FINDINGS: No mediastinal shift. Cardiac silhouette is not enlarged. No pneumothorax or effusion. Minimal ill-de fined left basilar opacity is improved compared to recent prior. No acute skeletal findings. IMPRESSION: Improved aeration of the lungs compared to 11/19/2018. There may be minimal residual opacity in the le ft lung base. This document is electronically signed by Sean Baca MD., November 22 2018 08:43:47 AM ET
[2018-11-22 08:42] LABS: Basophils % (Manual) 0 % (0.0-1.8); Total Cells Counted 100
[2018-11-22 08:43] LABS: Anisocytosis 1+; Large Platelets Rare; Platelet Estimate Consistent w Auto; Poikilocytosis 1+
[2018-11-22] MEDS ORDERED: LASIX PO SCH (10:00)
[2018-11-22] MEDS: HALFPRIN EC PO SCH (11:03)
[2018-11-22] MEDS: ZESTRIL PO SCH (11:03)
[2018-11-22] MEDS: LOVENOX SUB-Q SCH (11:03)
[2018-11-22] MEDS: K-DUR PO SCH (11:03)
--- NOTE | 2018-11-22 11:43 | Progress Note ---
Assessment and Plan Optimize HR - initiate lopressor 50mg TID. Await echo. Pt has a known history of parox AFib and is not on any systemic anticoagulation at home. Pt with borderline CHADS score in the past (female sex and HTN), now with HF. Await echo and cont full dosage lovenox and consider initiation of NOAC (Eliquis) prior to discharge. The patient has been seen in conjunction with Dr. Bobo who agrees with the assessment and plan of care. - Patient Problems (1) Acute heart failure Current Visit: Yes Status: Acute (2) Paroxysmal atrial fibrillation Current Visit: Yes Status: Chronic (3) Hypertension Current Visit: Yes Status: Chronic Qualifiers: Hypertension type: essential hypertension Qualified Code(s): I10 - Essential (primary) hypertension (4) Chest pain Current Visit: Yes Status: Acute Qualifiers: Chest pain type: unspecified Qualified Code(s): R07.9 - Chest pain, unspecified Plan to address problem: Lexiscan MPI stress test done 11/10/2018 was negative for ischemia, EF 58%. (5) Tobacco use Current Visit: Yes Status: Chronic Subjective Date of service: 11/22/18 Principal diagnosis: shortness of breath, hypertension, paroxysmal atrial fib Interval history: pt c/o right-sided chest pain this morning that was relived with morphine, breathing is better. tele reviewed - in AFib with RVR HR 110 - 120s with bouts of NSVT noted. Objective Last Vital Signs Temp 97.6 F 11/22/18 08:31 Pulse 63 11/22/18 11:03 Resp 18 11/22/18 08:31 BP 146/70 11/22/18 11:03 Pulse Ox 100 11/22/18 08:31 - Physical Examination General: No Apparent Distress HEENT: Positive: PERRL, Normocephaly, Mucus Membranes Moist Neck: Positive: neck supple, trachea midline Cardiac: Positive: irregularly irregular, S1/S2 Lungs: Positive: Decreased Breath Sounds Neuro: Positive: Grossly Intact Abdomen: Positive: Soft. Negative: Tender Skin: Negative: Rash, Wound Musculoskeletal: No Pain Extremities: Absent: edema - Labs and Meds Cardiac Enzymes 11/22/18 Range/Units 05:28 AST 14 (5-40) units/L CBC 11/22/18 Range/Units 05:28 WBC 5.9 (4.5-11.0) K/mm3 RBC 5.54 H (3.65-5.03) M/mm3 Hgb 14.7 H (10.1-14.3) gm/dl Hct 41.1 (30.3-42.9) % Plt Count 275 (140-440) K/mm3 Comprehensive Metabolic Panel 11/21/18 11/22/18 Range/Units 12:42 05:28 Sodium 136 L 136 L (137-145) mmol/L Potassium 4.5 4.2 (3.6-5.0) mmol/L Chloride 95.0 L 100.9 (98-107) mmol/L Carbon Dioxide 27 22 (22-30) mmol/L BUN 15 15 (7-17) mg/dL Creatinine 0.6 L 0.5 L (0.7-1.2) mg/dL Glucose 79 87 (65-100) mg/dL Calcium 11.2 H 10.8 H (8.4-10.2) mg/dL AST 14 (5-40) units/L ALT 15 (7-56) units/L Alkaline Phosphatase 86 (35-129) units/L Total Protein 7.3 (6.3-8.2) g/dL Albumin 3.7 L (3.9-5) g/dL - Imaging and Cardiology EKG: report reviewed, image reviewed Echo: pending - EKG Sinus rhythms and dysrhythmias: sinus rhythm
[2018-11-22 13:47] LABS: Creatine Kinase MB 1.5 ng/mL (0.0-4.0)
[2018-11-22] MEDS ORDERED: LOPRESSOR PO SCH (14:00)
[2018-11-22 18:07] LABS: Creatine Kinase MB 1.6 ng/mL (0.0-4.0)
--- NOTE | 2018-11-22 19:12 | Discharge Summary ---
Providers - Providers Date of Admission: 11/19/18 10:44 Date of discharge: 11/22/18 Attending physician: KATHERINE JACOBSON 11/19/18 13:45 Consult to Physician [CONS] Routine Comment: Consulting Provider: BALJEET GAMBOA Physician Instructions: Reason For Exam: chf exacerbation [facility] Hospital[facility] Condition: Critical Hospital course: congestive heart failure exacerbation Echo--EF 55 percent - Stress test done on 11/10/2018 showed preserved EF chest x-ray and CT chest this admission showed finding consistent with mild pulmonary congestion, patient also has elevated BNP - Continue Lasix, Aspirin, ACEI, statin, - Discussed with cardiology - cardiac diet now, daily weights, strict in's and O's Sinus bradycardia, hold the beta juany and centrally acting calcium channel juany - Continue to monitor clinically Hr better Hypertension, uncontrolled Improved - Placed on hydralazine for now Paroxysmal atrial fib D/c on Eliquis PO AC before discharge Patient is full code Disposition: DC-01 TO HOME OR SELFCARE Core Measure Documentation - Palliative Care Palliative Care/ Comfort Measures: Not Applicable - Core Measures Any of the following diagnoses?: none Exam - Constitutional Vitals: Temp Pulse Resp BP Pulse Ox 97.7 F 67 18 128/56 93 11/22/18 17:25 11/22/18 17:25 11/22/18 17:25 11/22/18 17:25 11/22/18 17:25 General appearance: Present: no acute distress, well-nourished - EENT Eyes: Present: PERRL ENT: hearing intact, clear oral mucosa - Neck Neck: Present: supple, normal ROM - Respiratory Respiratory effort: normal Respiratory: bilateral: CTA - Cardiovascular Heart rate: 65 Rhythm: regular Heart Sounds: Present: S1 & S2. Absent: rub, click - Extremities Extremities: pulses symmetrical, No edema Peripheral Pulses: within normal limits - Abdominal General gastrointestinal: Present: soft, non-tender, non-distended, normal bowel sounds Female genitourinary: Present: normal - Integumentary Integumentary: Present: clear, warm, dry - Musculoskeletal Musculoskeletal: gait normal, strength equal bilaterally - Psychiatric Psychiatric: appropriate mood/affect, intact judgment & insight - Neurologic Neurologic: CNII-XII intact, moves all extremities - Allied Health Allied health notes reviewed: nursing, case management Plan Activity: no restrictions Diet: low fat, low cholesterol, low salt [facility] [Primary Care Provider] - 3-5 Days BALJEET GAMBOA MD [Staff Physician] - 7 Days
[2018-11-22 19:50] VITALS: BP 143/55
== END 2018-11-22 21:00 | disposition home or self-care (01) | DRG 293 ==
LOC: ED 05:30 → 4A 10:44
PROVIDERS: ADMIT Internal Medicine; ATTEND Internal Medicine
DX: I11.0 Hypertensive heart disease with heart failure (principal); I50.23 Acute on chronic systolic (congestive) heart failure; R00.1 Bradycardia, unspecified; I27.20 Pulmonary hypertension, unspecified; I48.0 Paroxysmal atrial fibrillation; F17.200 Nicotine dependence, unspecified, uncomplicated; I16.0 Hypertensive urgency; Z79.899 Other long term (current) drug therapy
CPT/HCPCS: 36415; 71045; 71046; 71275; 80048; 80053; 82550; 82553; 83735; 83880; 84100; 84439; 84443; 84484; 85007; 85025; 85379; 87116; 93005; 93010; 93306; 96374; 99406; G0378; J1200; J1650; J1940; J2270; Q9967

== ENCOUNTER 2019-07-20 05:27 | Inpatient (IN) | payer OTHER ==
[2019-07-20 06:04] LABS: Basophils # (Auto) 0.1 K/mm3 (0.0-0.1); Basophils % (Auto) 1.2 % (0.0-1.8); Eosinophils # (Auto) 0.2 K/mm3 (0.0-0.4); Eosinophils % (Auto) 3.3 % (0.0-4.3); Hematocrit 33.6 % (30.3-42.9); Hemoglobin 10.8 gm/dl (10.1-14.3); Lymphocytes # (Auto) 1.1 K/mm3 (1.2-5.4); Lymphocytes % (Auto) 23.3 % (13.4-35.0); Mean Corpuscular HGB Conc 32 % (30-34); Mean Corpuscular Volume 80 fl (79-97); Monocytes # (Auto) 0.6 K/mm3 (0.0-0.8); Monocytes % (Auto) 12.3 % (0.0-7.3); Platelet Count 239 K/mm3 (140-440); Red Blood Count 4.22 M/mm3 (3.65-5.03); Red Cell Distribution Width 18.3 % (13.2-15.2)
[2019-07-20 06:19] LABS: BUN/Creatinine Ratio 23; Blood Urea Nitrogen 14 mg/dL (7-17); Calcium 9.9 mg/dL (8.4-10.2); Hemolysis Index 0
--- NOTE | 2019-07-20 06:19 | XRay Report ---
CHEST 1 VIEW INDICATION / CLINICAL INFORMATION: Chest Pain. COMPARISON: 11/22/2018 FINDINGS: SUPPORT DEVICES: None. HEART / MEDIASTINUM: No significant abnormality. LUNGS / PLEURA: There is mild perihilar edema. There is mild venous congestion.. No pneumothorax. ADDITIONAL FINDINGS: No significant additional findings. IMPRESSION: 1. There is mild pulmonary edema. There is mild venous congestion. Signer Name: Cristi Portillo MD Signed: 07/20/2019 6:15 AM Workstation Name: [id number]
--- NOTE | 2019-07-20 09:06 | Emergency Department Report ---
ED Chest Pain HPI - General Chief Complaint: Dyspnea/Respdistress Stated Complaint: KAL Time Seen by Provider: 07/20/19 09:03 Source: patient Mode of arrival: Ambulatory Limitations: No Limitations - History of Present Illness Initial Comments: This is a 49-year-old female with a history of CHF and hypertension. She was admitted here in 2019. Since then she has been noncompliant with her medication and had not seen a physician. She states that she had subxyphoidal "blockage"last night. She is not complaining of chest pain now. She has no known history of coronary artery disease. She complains of shortness of breath. She presented with hypertension. She denies any pleuritic pain. She denies any radiation of pain. She has a prior history of paroxysmal atrial fibrillation and anticoagulation. She is not compliant with that as well. Per her discharge summary: congestive heart failure exacerbation Echo--EF 55 percent - Stress test done on 11/10/2018 showed preserved EF chest x-ray and CT chest this admission showed finding consistent with mild pulmonary congestion, patient also has elevated BNP - Continue Lasix, Aspirin, ACEI, statin, - Discussed with cardiology - cardiac diet now, daily weights, strict in's and O's Sinus bradycardia, hold the beta juany and centrally acting calcium channel juany - Continue to monitor clinically Hr better Hypertension, uncontrolled Improved - Placed on hydralazine for now Paroxysmal atrial fib D/c on Eliquis PO AC before discharge MD Complaint: chest pain -: Gradual Onset: during rest Pain Location: substernal (xyphoidal) Pain Radiation: none Severity: moderate Quality: other Consistency: now resolved Improves With: nothing Worsens With: nothing re: dyspnea. denies: nausea, vomting, diaphoresis Other Symptoms: denies: cough, fever, syncope Treatments Prior to Arrival: none Aspirin use within the Past 7 Days: (0) No - Related Data Previous Rx's Medication Instructions Recorded Last Taken Type Verapamil ER [Calan SR] 240 mg PO BID #60 tablet 11/10/18 Unknown Rx carvediloL [Coreg] 6.25 mg PO BID #60 tablet 11/10/18 Unknown Rx Apixaban [Eliquis] 5 mg PO BID #60 tablet 11/22/18 Unknown Rx Aspirin EC [Halfprin EC] 81 mg PO QDAY #100 tablet 11/22/18 Unknown Rx Furosemide [Lasix TAB] 20 mg PO QDAY #30 tablet 11/22/18 Unknown Rx Metoprolol [Lopressor TAB] 50 mg PO Q12H #60 tablet 11/22/18 Unknown Rx Potassium Chloride [K-Dur] 10 meq PO QDAY #30 tab 11/22/18 Unknown Rx hydrALAZINE [Apresoline TAB] 50 mg PO Q8HR #90 tablet 11/22/18 Unknown Rx lisinopriL [Zestril TAB] 10 mg PO QDAY #30 tablet 11/22/18 Unknown Rx Allergies Allergy/AdvReac Type Severity Reaction Status Date / Time No Known Allergies Allergy Verified 11/09/18 08:47 Heart Score - HEART Score History: Slightly suspicious EKG: Normal Age: 45-65 Risk factors: 1-2 risk factors Troponin: < normal limit HEART Score: 2 - Critical Actions Critical Actions: 0-3 pts:0.9-1.7%risk of adverse cardiac event.Candidate for discharge ED Review of Systems ROS: Stated complaint: KAL Other details as noted in HPI Constitutional: denies: chills, fever Eyes: denies: eye pain, eye discharge, vision change ENT: denies: ear pain, throat pain Respiratory: shortness of breath. denies: cough, wheezing Cardiovascular: chest pain. denies: palpitations Endocrine: no symptoms reported Gastrointestinal: denies: abdominal pain, nausea, diarrhea Genitourinary: denies: urgency, dysuria, discharge Musculoskeletal: denies: back pain, joint swelling, arthralgia Skin: denies: rash, lesions Neurological: denies: headache, weakness, paresthesias Psychiatric: denies: anxiety, depression Hematological/Lymphatic: denies: easy bleeding, easy bruising ED Past Medical Hx - Past Medical History Previous Medical History?: Yes Hx Hypertension: Yes Hx Congestive Heart Failure: No Hx Diabetes: No Hx Asthma: No Hx COPD: No Hx HIV: No Additional medical history: heart murmer - Surgical History Past Surgical History?: No - Social History Smoking Status: Current Every Day Smoker - Medications Home Medications: Home Medications Medication Instructions Recorded Confirmed Last Taken Type Verapamil ER [Calan SR] 240 mg PO BID #60 tablet 11/10/18 11/19/18 Unknown Rx carvediloL [Coreg] 6.25 mg PO BID #60 tablet 11/10/18 11/19/18 Unknown Rx Apixaban [Eliquis] 5 mg PO BID #60 tablet 11/22/18 Unknown Rx Aspirin EC [Halfprin EC] 81 mg PO QDAY #100 tablet 11/22/18 Unknown Rx Furosemide [Lasix TAB] 20 mg PO QDAY #30 tablet 11/22/18 Unknown Rx Metoprolol [Lopressor TAB] 50 mg PO Q12H #60 tablet 11/22/18 Unknown Rx Potassium Chloride [K-Dur] 10 meq PO QDAY #30 tab 11/22/18 Unknown Rx hydrALAZINE [Apresoline TAB] 50 mg PO Q8HR #90 tablet 11/22/18 Unknown Rx lisinopriL [Zestril TAB] 10 mg PO QDAY #30 tablet 11/22/18 Unknown Rx ED Physical Exam - General Limitations: No Limitations General appearance: alert, in no apparent distress - Head Head exam: Present: atraumatic, normocephalic - Eye Eye exam: Present: normal appearance. Absent: scleral icterus - ENT ENT exam: Present: mucous membranes moist - Neck Neck exam: Present: normal inspection - Respiratory Respiratory exam: Present: normal lung sounds bilaterally. Absent: respiratory distress - Cardiovascular Cardiovascular Exam: Present: regular rate, normal rhythm. Absent: systolic murmur, diastolic murmur, rubs, gallop - GI/Abdominal GI/Abdominal exam: Present: soft, normal bowel sounds. Absent: distended, tenderness, guarding, rebound, rigid - Extremities Exam Extremities exam: Present: normal inspection, normal capillary refill. Absent: pedal edema, joint swelling, calf tenderness - Back Exam Back exam: Present: normal inspection - Neurological Exam Neurological exam: Present: alert, oriented X3, CN II-XII intact. Absent: motor sensory deficit - Psychiatric Psychiatric exam: Present: normal affect, normal mood - Skin Skin exam: Present: warm, dry, intact, normal color. Absent: rash ED Course Vital Signs 07/20/19 07/20/19 07/20/19 05:28 07:50 10:05 Temperature 98.8 F Pulse Rate 68 50 L 55 L Respiratory 28 H 24 Rate Blood Pressure 174/53 150/64 Blood Pressure 164/45 [Right] O2 Sat by Pulse 97 100 Oximetry - Reevaluation(s) Reevaluation #1: Remained stable. Given Lasix. Admitted to the hospital service. 01/29/20 11:24 CARL score - Carl Score Age > 65: (0) No Aspirin use within the Past 7 Days: (0) No 3 or more CAD Risk Factors: (0) No 2 or more Angina events in past 24 hrs: (0) No Known CAD with more than 50% Stenosis: (0) No Elevated Cardiac Markers: (0) No ST Deviation Greater than 0.5mm: (0) No CARL Score: 0 ED Medical Decision Making - Lab Data Result diagrams: 07/20/19 05:43 07/20/19 05:43 Laboratory Results - last 24 hr 07/20/19 07/20/19 05:43 05:43 WBC 4.5 RBC 4.22 Hgb 10.8 Hct 33.6 MCV 80 MCH 26 L MCHC 32 RDW 18.3 H Plt Count 239 Lymph % (Auto) 23.3 [place] % (Auto) 12.3 H Eos % (Auto) 3.3 Baso % (Auto) 1.2 Lymph # 1.1 L [place] # 0.6 Eos # 0.2 Baso # 0.1 Seg Neutrophils % 59.9 Seg Neutrophils # 2.7 Sodium 139 Potassium 4.2 Chloride 103.8 Carbon Dioxide 22 Anion Gap 17 BUN 14 Creatinine 0.6 L Estimated GFR > 60 BUN/Creatinine Ratio 23 Glucose 93 Calcium 9.9 Troponin T < 0.010 - EKG Data -: EKG Interpreted by Me EKG shows normal: sinus rhythm, axis, intervals, QRS complexes, ST-T waves Rate: normal - EKG Data Interpretation: no acute changes - Radiology Data Radiology results: report reviewed Critical care attestation.: If time is entered above; I have spent that time in minutes in the direct care of this critically ill patient, excluding procedure time. ED Disposition Clinical Impression: Acute exacerbation of CHF (congestive heart failure) Qualifiers: Heart failure type: combined systolic and diastolic Qualified Code(s): I50.43 - Acute on chronic combined systolic (congestive) and diastolic (congestive) heart failure Chest pain Qualifiers: Chest pain type: unspecified Qualified Code(s): R07.9 - Chest pain, unspecified Disposition: OP ADMIT IP TO THIS HOSP Is pt being admited?: Yes Does the pt Need Aspirin: Yes Condition: Stable Instructions: Chest Pain (ED) Referrals: LILIYA SMITH MD [Primary Care Provider] - 3-5 Days Time of Disposition: 11:29
[2019-07-20] MEDS ORDERED: NITROGLYCERIN 2% OINT 1 GM TP ONE (09:18)
[2019-07-20] MEDS ORDERED: FUROSEMIDE 40 MG/4 ML INJ IV ONE (09:18)
[2019-07-20] MEDS ORDERED: ASPIRIN 325 MG TAB PO ONE (09:20)
[2019-07-20 09:59] LABS: INR 0.98 (0.87-1.13)
[2019-07-20 10:00] LABS: Partial Thromboplastin Time 27.3 Sec. (24.2-36.6)
[2019-07-20 10:23] LABS: Alanine Aminotransferase 17 units/L (7-56); Albumin 3.9 g/dL (3.9-5); Bilirubin,Direct < 0.2 mg/dL (0-0.2); Creatine Kinase MB < 1.0 ng/mL (0.0-4.0)
--- NOTE | 2019-07-20 13:45 | History and Physical Report ---
History of Present Illness Date of examination: 07/20/19 Date of admission: 07/20/19 09:20 Chief complaint: Chest pain Shortness of breath History of present illness: Patient is 49 yo with Chronic diastolic CHF, paroxysmal afib on Eliquis, hypertension. She presents with chest pain and shortness of breath. Chest pain is midsternal, was 7/10, not related to exertion. There was no radiation. Chest pain improved. She also complains of shortness of breath,also worse on exertion. She startes she has been non compliant and has not been taking meds. She was seen and evaluated in ED and diagnosed with CHF exacerbation. Will admit for further management. Past History Past Medical History: atrial fib, hypertension Past Surgical History: No surgical history Social history: lives with family, smoking (Smokes half pack cigarettes daily), full code Family history: hypertension Medications and Allergies Allergies Allergy/AdvReac Type Severity Reaction Status Date / Time No Known Allergies Allergy Verified 11/09/18 08:47 Home Medications Medication Instructions Recorded Confirmed Last Taken Type Verapamil ER [Calan SR] 240 mg PO BID #60 tablet 11/10/18 07/20/19 07/20/19 Rx carvediloL [Coreg] 6.25 mg PO BID #60 tablet 11/10/18 07/20/19 07/20/19 Rx Apixaban [Eliquis] 5 mg PO BID #60 tablet 11/22/18 07/20/19 07/17/19 Rx Metoprolol [Lopressor TAB] 50 mg PO Q12H #60 tablet 11/22/18 07/20/19 Unknown Rx lisinopriL [Zestril TAB] 10 mg PO QDAY #30 tablet 11/22/18 07/20/19 07/20/19 Rx Review of Systems All systems: negative (No fever, no headache, no abd pain, no urinary symptoms. All other systems reviewed and are negative) Exam - Physical Exam Narrative exam: GEN: Not in acute distress, lying in bed, obese HEENT: Normocephalic, atraumatic, Neck: supple, No JVD Lungs: Bilateral rales, no wheeze, heart;S1 and S2 reg, no murmurs, rubs or gallop Abd:soft, non tender, non distended, normal bowel sounds Ext: No edema, no clubbing, no cyanosis Neuro: AAO X 3, no focal neurological signs - Constitutional Vitals: Temp Pulse Resp BP Pulse Ox 98.8 F 55 L 24 150/64 100 07/20/19 05:28 07/20/19 10:05 07/20/19 07:50 07/20/19 10:05 07/20/19 07:50 Results - Labs CBC & Chem 7: 07/21/19 04:13 07/21/19 04:13 Labs: Abnormal lab results 07/20/19 07/20/19 07/20/19 Range/Units 05:43 05:43 09:31 MCH 26 L (28-32) pg RDW 18.3 H (13.2-15.2) % [place] % (Auto) 12.3 H (0.0-7.3) % Lymph # 1.1 L (1.2-5.4) K/mm3 D-Dimer 512.21 H (0-234) ng/mlDDU Creatinine 0.6 L (0.7-1.2) mg/dL Assessment and Plan Acute on chronic diastolic CHF Admit lasix 40mg iv q 12 CXR shows pulm edema Fluid I/O Hold beta juany because bradycardia hold verapamil Chest pain Troponins negative Negative stress on 11/10/18 Bradycardia Hold Beta juany, hold verapamil Hypertension Monitor BP PAF Continue Eliquis Full code status
--- NOTE | 2019-07-20 16:27 | Cat Scan Report ---
CT chest with contrast INDICATION : chest pain, elevated d-dimer TECHNIQUE: 100 mL of intravenous contrast administered. All CT scans at this location are performed using CT dose reduction for ALARA by means of automated exposure control. COMPARISON: Radiograph performed earlier the same day. FINDINGS: Pulmonary arteries appear clear without filling defect to suggest the presence of pulmonary embolism. Lungs show mild scattered areas of groundglass opacities. The pattern is most suggestive of mild pulm onary edema. No discrete pulmonary mass or nodule. Trace right pleural effusion. No pneumothorax Heart is within normal limits in terms of size. No evidence of pericardial effusion. No mediastinal o r axillary lymphadenopathy. Osseous structures show no evidence acute fracture or aggressive osseous destructive lesion. Limited evaluation of the upper abdomen is unremarkable. IMPRESSION: No evidence of pulmonary embolism. Findings of mild pulmonary edema with trace right pleural effusion. Signer Name: Sean Lau MD Signed: 07/20/2019 4:22 PM Workstation Name: [id number]
[2019-07-20] MEDS ORDERED: ACETAMINOPHEN 325 MG TAB PO PRN (18:14)
[2019-07-20] MEDS ORDERED: ONDANSETRON 4 MG/2 ML INJ IV PRN (18:14)
[2019-07-20] MEDS ORDERED: ALBUTEROL 2.5 MG/3 ML NEBU IH PRN (18:14)
[2019-07-20] MEDS ORDERED: MORPHINE 2 MG/1 ML INJ IV PRN (18:14)
[2019-07-20] MEDS ORDERED: NITROGLYCERIN 0.4 MG TAB SUBL SL PRN (18:16)
[2019-07-21] MEDS: APIXABAN 5 MG TAB PO SCH ×3 (00:01→21:48)
[2019-07-21] MEDS: LISINOPRIL 10 MG TAB PO SCH ×2 (00:01→10:29)
[2019-07-21 05:12] LABS: Basophils # (Auto) 0.1 K/mm3 (0.0-0.1); Basophils % (Auto) 1.6 % (0.0-1.8); Eosinophils # (Auto) 0.1 K/mm3 (0.0-0.4); Eosinophils % (Auto) 2.6 % (0.0-4.3); Hematocrit 32.7 % (30.3-42.9); Hemoglobin 10.5 gm/dl (10.1-14.3); Lymphocytes # (Auto) 1.2 K/mm3 (1.2-5.4); Lymphocytes % (Auto) 31.6 % (13.4-35.0); Mean Corpuscular HGB Conc 32 % (30-34); Mean Corpuscular Volume 80 fl (79-97); Monocytes # (Auto) 0.5 K/mm3 (0.0-0.8); Monocytes % (Auto) 13.4 % (0.0-7.3); Platelet Count 217 K/mm3 (140-440); Red Blood Count 4.11 M/mm3 (3.65-5.03); Red Cell Distribution Width 18.6 % (13.2-15.2)
[2019-07-21 05:33] LABS: BUN/Creatinine Ratio 20; Blood Urea Nitrogen 12 mg/dL (7-17); Calcium 9.8 mg/dL (8.4-10.2); Hemolysis Index 2
--- NOTE | 2019-07-21 13:29 | Consultation ---
History of Present Illness Consult date: 07/21/19 Requesting physician: MARY ANNE OHARA Consult reason: chest pain, congestive heart failure History of present illness: The pt is a 49 YO female with a past medical history of paroxysmal atrial fibrillation, anticoagulated with Eliquis, HTN, tobacco use. She has been seen by our practice on a prior hospitalization and states that she is regularly followed by adventure therapist Dr. Rao in [place]. She presented with complaints of progressively worsening orthopnea, SOB and MCGUIRE for 1 day prior to arrival. Per the chart, pt also c/o chest pain although on evaluation, she denies any occurrence of chest pain. She denies any palpitations, n/v, diaphoresis, dizziness or syncope. Pt received IV lasix overnight and states she is feeling much better today. Lexiscan MPI stress test done 11/10/2018 was negative for ischemia, EF 58%. Echo done 07/20/2019 showed EF 40-45%, mod TR, RVSP 52mmHg, mild LVH, LA mod dilated. Past History Past Medical History: atrial fib, hypertension Past Surgical History: No surgical history Social history: lives with family, smoking (Smokes half pack cigarettes daily), full code Family history: hypertension Medications and Allergies Allergies Allergy/AdvReac Type Severity Reaction Status Date / Time No Known Allergies Allergy Verified 11/09/18 08:47 Home Medications Medication Instructions Recorded Confirmed Last Taken Type Verapamil ER [Calan SR] 240 mg PO BID #60 tablet 11/10/18 07/20/19 07/20/19 Rx carvediloL [Coreg] 6.25 mg PO BID #60 tablet 11/10/18 07/20/19 07/20/19 Rx Apixaban [Eliquis] 5 mg PO BID #60 tablet 11/22/18 07/20/19 07/17/19 Rx Metoprolol [Lopressor TAB] 50 mg PO Q12H #60 tablet 11/22/18 07/20/19 Unknown Rx lisinopriL [Zestril TAB] 10 mg PO QDAY #30 tablet 11/22/18 07/20/19 07/20/19 Rx Active Meds: Active Medications Acetaminophen (Tylenol) 650 mg PO Q4H PRN PRN Reason: Pain MILD(1-3)/Fever >100.5/DIAZ Albuterol (Proventil) 2.5 mg IH Q4HRT PRN PRN Reason: Shortness Of Breath Apixaban (Eliquis) 5 mg PO BID [facility]END[facility] TO [facility]; Protocol Last Admin: 07/21/19 10:29 Dose: 5 mg Documented by: Furosemide (Lasix) 40 mg IV BID@0600,1800 [facility] Lisinopril (Zestril) 10 mg PO QDAY [facility] Last Admin: 07/21/19 10:29 Dose: 10 mg Documented by: Morphine Sulfate (Morphine) 2 mg IV Q4H PRN PRN Reason: Pain, Moderate (4-6) Nitroglycerin (Nitrostat) 0.4 mg SL .Q5MIN PRN PRN Reason: Chest Pain Ondansetron HCl (Zofran) 4 mg IV Q8H PRN PRN Reason: Nausea And Vomiting Sodium Chloride (Sodium Chloride Flush Syringe 10 Ml) 10 ml IV BID [facility] Last Admin: 07/21/19 10:29 Dose: 10 ml Documented by: Sodium Chloride (Sodium Chloride Flush Syringe 10 Ml) 10 ml IV PRN PRN PRN Reason: LINE FLUSH Review of Systems Constitutional: no fever, no chills, no sweats Ears, nose, mouth and throat: no ear pain, no nose pain, no sinus pressure, no sinus pain Cardiovascular: orthopnea, edema, shortness of breath, dyspnea on exertion, leg edema, no chest pain, no palpitations, no rapid/irregular heart beat, no syncope, no lightheadedness Respiratory: shortness of breath, dyspnea on exertion, no cough, no congestion, no wheezing, no pain on inspiration Gastrointestinal: no abdominal pain, no nausea, no vomiting, no diarrhea, no constipation, no change in bowel habits Genitourinary Female: no pelvic pain, no flank pain, no dysuria, no urinary frequency, no urgency Musculoskeletal: no neck stiffness, no neck pain, no shooting arm pain, no arm numbness/tingling, no low back pain, no shooting leg pain Integumentary: no rash, no pruritis, no redness, no sores, no wounds Neurological: no head injury, no paralysis, no weakness, no parathesias, no numbness, no tingling, no seizures, no syncope Psychiatric: no anxiety Endocrine: no cold intolerance, no heat intolerance Hematologic/Lymphatic: no easy bruising, no easy bleeding Allergic/Immunologic: no urticaria Physical Examination Vital Signs Temp Pulse Resp BP Pulse Ox 98.8 F 68 28 H 174/53 97 07/20/19 05:28 07/20/19 05:28 07/20/19 05:28 07/20/19 05:07/20/19 05:28 General appearance: no acute distress HEENT: Positive: PERRL, Normocephaly, Mucus Membranes Moist Neck: Positive: neck supple, trachea midline Cardiac: Positive: irregularly irregular, S1/S2 Lungs: Positive: Decreased Breath Sounds Neuro: Positive: Grossly Intact Abdomen: Negative: Tender Skin: Negative: Rash Musculoskeletal: No Pain Extremities: Absent: edema Results 07/21/19 04:13 07/21/19 04:13 CBC 07/21/19 Range/Units 04:13 WBC 3.8 L (4.5-11.0) K/mm3 RBC 4.11 (3.65-5.03) M/mm3 Hgb 10.5 (10.1-14.3) gm/dl Hct 32.7 (30.3-42.9) % Plt Count 217 (140-440) K/mm3 Lymph # 1.2 (1.2-5.4) K/mm3 [place] # 0.5 (0.0-0.8) K/mm3 Eos # 0.1 (0.0-0.4) K/mm3 Baso # 0.1 (0.0-0.1) K/mm3 Comprehensive Metabolic Panel 07/21/19 Range/Units 04:13 Sodium 139 (137-145) mmol/L Potassium 3.6 (3.6-5.0) mmol/L Chloride 102.5 (98-107) mmol/L Carbon Dioxide 25 (22-30) mmol/L BUN 12 (7-17) mg/dL Creatinine 0.6 L (0.7-1.2) mg/dL Glucose 92 (65-100) mg/dL Calcium 9.8 (8.4-10.2) mg/dL - Imaging and Cardiology Echo: report reviewed (07/20/2019 showed EF 40-45%, mod TR, RVSP 52mmHg, mild LVH, LA mod dilated. ) EKG: report reviewed, image reviewed EKG interpretations - Telemetry EKG Rhythm: Sinus Rhythm - EKG Sinus rhythms and dysrhythmias: sinus rhythm Assessment and Plan Acute heart failure with reduced EF Echo done 07/20/2019 showed EF 40-45%, mod TR, RVSP 52mmHg, mild LVH, LA mod dilated. Agree with IV lasix BID. CMP Echo done 07/20/2019 showed EF 40-45%, mod TR, RVSP 52mmHg, mild LVH, LA mod dilated. Lexiscan MPI stress test done 11/10/2018 was negative for ischemia, EF 58%. No BB due to h/o bradycardia. Cont lisinopril. Paroxysmal atrial fibrillation Pt with known AFib SVR and sinus bradycardia and thus is not on BB. Cont Eliquis. HTN No BB due to h/o bradycardia. Cont lisinopril. Consider norvasc for BP optimization. Elevated DDimer Chest CTA negative for PE. The patient has been seen in conjunction with Dr. Van who agrees with the assessment and plan of care.
[2019-07-21] MEDS ORDERED: hydrALAZINE 20 MG/1 ML INJ IV PRN (13:59)
[2019-07-21] MEDS ORDERED: LISINOPRIL 5 MG TAB PO ONE (14:07)
[2019-07-21] MEDS ORDERED: LISINOPRIL 10 MG TAB PO SCH (14:07)
--- NOTE | 2019-07-21 17:23 | Progress Note ---
Assessment and Plan Assessment and plan: Acute on chronic diastolic CHF Admitted to [facility] lasix 40mg iv q 12 CXR shows pulm edema Fluid I/O Hold beta juany because bradycardia hold verapamil cardiology following Chest pain Troponins negative Negative stress on 11/10/18 Bradycardia Hold Beta juany, hold verapamil Hypertension Monitor BP Add hydralazine prn PAF Continue Eliquis Full code status History Interval history: Shortness of breath Hospitalist Physical - Physical exam Narrative exam: GEN: Not in acute distress, lying in bed, obese HEENT: Normocephalic, atraumatic, Neck: supple, No JVD Lungs: Bilateral rales, no wheeze, heart;S1 and S2 reg, no murmurs, rubs or gallop Abd:soft, non tender, non distended, normal bowel sounds Ext: No edema, no clubbing, no cyanosis Neuro: AAO X 3, no focal neurological signs - Constitutional Vitals: Temp Pulse Resp BP Pulse Ox 98.4 F 56 L 19 173/58 97 07/21/19 12:14 07/21/19 15:42 07/21/19 12:14 07/21/19 15:42 07/21/19 12:14 General appearance: Present: no acute distress LEILA score - Leila Score Age > 65: (0) No Aspirin use within the Past 7 Days: (0) No 3 or more CAD Risk Factors: (0) No 2 or more Angina events in past 24 hrs: (0) No Known CAD with more than 50% Stenosis: (0) No Elevated Cardiac Markers: (0) No ST Deviation Greater than 0.5mm: (0) No LEILA Score: 0 Results - Labs CBC & Chem 7: 07/21/19 04:13 07/21/19 04:13 Labs: Laboratory Last Values WBC 3.8 K/mm3 (4.5-11.0) L 07/21/19 04:13 RBC 4.11 M/mm3 (3.65-5.03) 07/21/19 04:13 Hgb 10.5 gm/dl (10.1-14.3) 07/21/19 04:13 Hct 32.7 % (30.3-42.9) 07/21/19 04:13 MCV 80 fl (79-97) 07/21/19 04:13 MCH 26 pg (28-32) L 07/21/19 04:13 MCHC 32 % (30-34) 07/21/19 04:13 RDW 18.6 % (13.2-15.2) H 07/21/19 04:13 Plt Count 217 K/mm3 (140-440) 07/21/19 04:13 Lymph % (Auto) 31.6 % (13.4-35.0) 07/21/19 04:13 [place] % (Auto) 13.4 % (0.0-7.3) H 07/21/19 04:13 Eos % (Auto) 2.6 % (0.0-4.3) 07/21/19 04:13 Baso % (Auto) 1.6 % (0.0-1.8) 07/21/19 04:13 Lymph # 1.2 K/mm3 (1.2-5.4) 07/21/19 04:13 [place] # 0.5 K/mm3 (0.0-0.8) 07/21/19 04:13 Eos # 0.1 K/mm3 (0.0-0.4) 07/21/19 04:13 Baso # 0.1 K/mm3 (0.0-0.1) 07/21/19 04:13 Seg Neutrophils % 50.8 % (40.0-70.0) 07/21/19 04:13 Seg Neutrophils # 1.9 K/mm3 (1.8-7.7) 07/21/19 04:13 PT 13.1 Sec. (12.2-14.9) 07/20/19 09:31 INR 0.98 (0.87-1.13) 07/20/19 09:31 APTT 27.3 Sec. (24.2-36.6) 07/20/19 09:31 D-Dimer 512.21 ng/mlDDU (0-234) H 07/20/19 09:31 Sodium 139 mmol/L (137-145) 07/21/19 04:13 Potassium 3.6 mmol/L (3.6-5.0) 07/21/19 04:13 Chloride 102.5 mmol/L (98-107) 07/21/19 04:13 Carbon Dioxide 25 mmol/L (22-30) 07/21/19 04:13 Anion Gap 15 mmol/L 07/21/19 04:13 BUN 12 mg/dL (7-17) 07/21/19 04:13 Creatinine 0.6 mg/dL (0.7-1.2) L 07/21/19 04:13 Estimated GFR > 60 ml/min 07/21/19 04:13 BUN/Creatinine Ratio 20 % 07/21/19 04:13 Glucose 92 mg/dL (65-100) 07/21/19 04:13 Calcium 9.8 mg/dL (8.4-10.2) 07/21/19 04:13 Magnesium 1.90 mg/dL (1.7-2.3) 07/20/19 09:31 Total Bilirubin 0.40 mg/dL (0.1-1.2) 07/20/19 09:31 Direct Bilirubin < 0.2 mg/dL (0-0.2) 07/20/19 09:31 Indirect Bilirubin 0.2 mg/dL 07/20/19 09:31 AST 28 units/L (5-40) 07/20/19 09:31 ALT 17 units/L (7-56) 07/20/19 09:31 Alkaline Phosphatase 76 units/L (35-129) 07/20/19 09:31 Total Creatine Kinase 66 units/L (30-135) 07/20/19 09:31 CK-MB (CK-2) < 1.0 ng/mL (0.0-4.0) 07/20/19 09:31 CK-MB (CK-2) Rel Index 1.5 (0-4) 07/20/19 09:31 Troponin T < 0.010 ng/mL (0.00-0.029) 07/20/19 13:11 NT-Pro-B Natriuret Pep 338.7 pg/mL (0-900) 07/20/19 09:31 Total Protein 7.1 g/dL (6.3-8.2) 07/20/19 09:31 Albumin 3.9 g/dL (3.9-5) 07/20/19 09:31 Albumin/Globulin Ratio 1.2 % 07/20/19 09:31 Active Medications - Current Medications Current Medications: Generic Name Dose Route Start Last Admin Trade Name Freq PRN Reason Stop Dose Admin Acetaminophen 650 mg 07/20/19 18:14 Tylenol PO Q4H PRN Pain MILD(1-3)/Fever >100.5/DIAZ Albuterol 2.5 mg 07/20/19 18:14 Proventil IH Q4HRT PRN Shortness Of Breath Apixaban 5 mg 07/20/19 23:45 07/21/19 10:29 Eliquis PO 5 mg BID [facility] Administration Protocol Furosemide 40 mg 07/21/19 20:00 Lasix IV BID@0600,1800 [facility] Lisinopril 20 mg 07/21/19 14:07 Zestril PO QDAY [facility] Morphine Sulfate 2 mg 07/20/19 18:14 Morphine IV Q4H PRN Pain, Moderate (4-6) Nitroglycerin 0.4 mg 07/20/19 18:16 Nitrostat SL .Q5MIN PRN Chest Pain Ondansetron HCl 4 mg 07/20/19 18:14 Zofran IV Q8H PRN Nausea And Vomiting Sodium Chloride 10 ml 07/20/19 22:00 07/21/19 10:29 Sodium Chloride Flush Syringe 10 Ml IV 10 ml BID JULIO CESAR Administration Sodium Chloride 10 ml 07/20/19 18:14 Sodium Chloride Flush Syringe 10 Ml IV PRN PRN LINE FLUSH
[2019-07-21] MEDS: FUROSEMIDE 40 MG/4 ML INJ IV SCH (21:48)
[2019-07-22 05:26] VITALS: BP 170/51
[2019-07-22] MEDS: FUROSEMIDE 40 MG/4 ML INJ IV SCH (06:21)
--- NOTE | 2019-07-22 10:20 | Progress Note ---
Assessment and Plan Acute heart failure with reduced EF Echo done 07/20/2019 showed EF 40-45%, mod TR, RVSP 52mmHg, mild LVH, LA mod dilated. Pt appears to be nearing/at euvolemia. She may discharge from cardiology standpoint. At discharge, recommend PO lasix 40mg daily. Cont all other present cardiac management. CMP Echo done 07/20/2019 showed EF 40-45%, mod TR, RVSP 52mmHg, mild LVH, LA mod dilated. Lexiscan MPI stress test done 11/10/2018 was negative for ischemia, EF 58%. No BB due to h/o bradycardia. Cont lisinopril. Paroxysmal atrial fibrillation Pt with known AFib SVR and sinus bradycardia and thus is not on BB. Cont Eliquis. HTN No BB due to h/o bradycardia. Cont lisinopril. Consider norvasc for BP optimization. Elevated DDimer Chest CTA negative for PE. Pt appears to be nearing/at euvolemia. She may discharge from cardiology standpoint. At discharge, recommend PO lasix 40mg daily. Cont all other present cardiac management. Recommend pt follow up with her primary avionics engineer, Dr. Rao, within 3-5 d ays of discharge. The patient has been seen in conjunction with Dr. Mac who agrees with the assessment and plan of care. Subjective Date of service: 07/22/19 Principal diagnosis: HF Interval history: pt resting in bed, states she is feeling better today. tele reviewed - in SR with HR 50 - 60s, SB noted overnight HR low 46bpm. Objective Last Vital Signs Temp 98.9 F 07/22/19 05:24 Pulse 53 L 07/22/19 05:24 Resp 18 07/22/19 05:24 BP 170/51 07/22/19 05:24 Pulse Ox 98 07/22/19 05:24 - Physical Examination General: No Apparent Distress HEENT: Positive: PERRL, Normocephaly, Mucus Membranes Moist Neck: Positive: neck supple, trachea midline Cardiac: Positive: Regular Rhythm, S1/S2 Lungs: Positive: Decreased Breath Sounds Neuro: Positive: Grossly Intact Abdomen: Negative: Tender Skin: Negative: Rash Musculoskeletal: No Pain Extremities: Absent: edema - Imaging and Cardiology EKG: report reviewed, image reviewed Echo: report reviewed (07/20/2019 showed EF 40-45%, mod TR, RVSP 52mmHg, mild LVH, LA mod dilated. ) - Telemetry EKG Rhythm: Sinus Rhythm - EKG Sinus rhythms and dysrhythmias: sinus rhythm
--- NOTE | 2019-07-22 10:31 | Discharge Summary ---
Providers - Providers Date of Admission: 07/20/19 09:20 Date of discharge: 07/22/19 Attending physician: MARY ANNE OHARA 07/21/19 12:17 Consult to Physician [CONS] Routine Comment: Consulting Provider: PHILL WALKER Physician Instructions: Reason For Exam: CHF exacerbation, chest pain [facility] Condition: Stable Exam - Constitutional Vitals: Temp Pulse Resp BP Pulse Ox 98.9 F 53 L 18 170/51 98 07/22/19 05:24 07/22/19 05:24 07/22/19 05:24 07/22/19 05:24 07/22/19 05:24 Plan Activity: advance as tolerated Diet: low fat, low cholesterol, low salt Plan of Treatment: 1.Follow up with PCP in 1 week. 2.Follow up with rig builder in 3-5 days [facility] - 3-5 Days Prescriptions: hydrALAZINE [Apresoline TAB] 25 mg PO Q8HR #90 tab Apixaban [Eliquis] 5 mg PO BID #60 tablet Furosemide [Lasix TAB] 40 mg PO QDAY #30 tablet lisinopriL [Zestril TAB] 20 mg PO QDAY #30 tablet
[2019-07-22] MEDS: APIXABAN 5 MG TAB PO SCH (10:39)
== END 2019-07-22 15:30 | disposition home or self-care (01) | DRG 292 ==
LOC: ED 05:27 → 3A 09:20
PROVIDERS: ADMIT Internal Medicine; ATTEND Internal Medicine
DX: I50.43 Acute on chronic combined systolic (congestive) and diastolic (congestive) heart failure (principal); I42.9 Cardiomyopathy, unspecified; I11.0 Hypertensive heart disease with heart failure; I48.0 Paroxysmal atrial fibrillation; R00.1 Bradycardia, unspecified; F17.210 Nicotine dependence, cigarettes, uncomplicated; Z82.49 Family history of ischemic heart disease and other diseases of the circulatory system; Z71.6 Tobacco abuse counseling; Z79.01 Long term (current) use of anticoagulants; Z91.14 Patient's other noncompliance with medication regimen
CPT/HCPCS: 36415; 71045; 71275; 80048; 80076; 82550; 82553; 83735; 83880; 84484; 85025; 85379; 85610; 85730; 93005; 93010; 93306; 99406; G0378; J1940; Q9967

== ENCOUNTER 2019-10-29 19:21 | Emergency (ER) | payer SELFPAY ==
[2019-10-29] MEDS ORDERED: ASPIRIN 325 MG TAB PO ONE (20:18)
--- NOTE | 2019-10-29 21:08 | XRay Report ---
CHEST 1 VIEW 10/29/2019 7:51 PM INDICATION / CLINICAL INFORMATION: Chest Pain. COMPARISON: 07/20/19 FINDINGS: SUPPORT DEVICES: None. HEART / MEDIASTINUM: Heart is mildly enlarged but stable. LUNGS / PLEURA: No significant pulmonary or pleural abnormality. No pneumothorax. ADDITIONAL FINDINGS: No significant additional findings. IMPRESSION: 1. Mild cardiomegaly but no acute pulmonary or pleural findings. Signer Name: Bushra Pearson MD Signed: 10/29/2019 9:04 PM Workstation Name: [id number]
[2019-10-29] MEDS ORDERED: chlordiazePOXIDE 25 MG CAP PO PRN (21:13)
[2019-10-29] MEDS ORDERED: diazePAM 10 MG/2 ML SYRINGE IV ONE (21:13)
[2019-10-29] MEDS ORDERED: LORazepam 2 MG/ML VIAL IV PRN ×2 (21:13)
[2019-10-29] MEDS ORDERED: dilTIAZem 30 MG TAB PO ONE (21:14)
[2019-10-29] MEDS ORDERED: LISINOPRIL 10 MG TAB PO STA (21:14)
[2019-10-29] MEDS ORDERED: hydrALAZINE 25 MG TAB PO STA (21:14)
--- NOTE | 2019-10-29 21:15 | Emergency Department Report ---
ED General Adult HPI - General Chief complaint: High BP Stated complaint: ELEVATED BLOOD PRESSURE PUI?: No Time Seen by Provider: 10/29/19 20:46 Source: patient, RN notes reviewed Mode of arrival: Wheelchair Limitations: No Limitations - History of Present Illness Initial comments: Patient is a 49-year-old female. This patient is not known to myself previously. She has a past medical history of chronic diastolic CHF, paroxysmal A. fib supposed to be on Eliquis and hypertension. She also has a history of alcohol use. She also has a history of bradycardia. She denies fever, cough, and coronavirus symptomatology. Her last alcoholic drink was earlier on today. She does not have a primary care doctor. She is poorly compliant with her prescription medications secondary to cost. She presents to the ER today with a complaint of generalized weakness, myalgias, lightheadedness, without complaints of headache, neck pain, chest pain, abdominal pain, denies new or different shortness of breath. She is not homicidal or suicidal. She has not tried to overdose on anything. She took aspirin last week intermittently, but has not taken Eliquis for some time secondary to the cost. To her best recollection, she has not had alcohol withdrawal seizure and she is not sure if she gets the "shakes." She makes no complaint of hematemesis or bright red blood per rectum. She also denies irritative and obstructive urinary symptoms. Her symptoms are intermittent, painless, do not radiate anywhere, and she does not describe exacerbating or relieving factors -: Gradual Severity scale (0 -10): 0 Quality: other Consistency: other Improves with: other Worsens with: other Associated Symptoms: other - Related Data Previous Rx's Medication Instructions Recorded Last Taken Type Apixaban [Eliquis] 5 mg PO BID #60 tablet 10/29/19 Unknown Rx Ferrous Sulfate [Ferrous Sulfate 324 mg PO TID #90 tablet. 10/29/19 Unknown Rx 324 MG] Furosemide [Lasix TAB] 40 mg PO QDAY #30 tablet 10/29/19 Unknown Rx Multivitamin with Folic Acid [[facility] 400 mcg PO QDAY #30 tablet 10/29/19 Unknown Rx One Daily Essential Tablet] chlordiazePOXIDE [Librium] 25 mg PO Q6H PRN #25 capsule 10/29/19 Unknown Rx hydrALAZINE [Apresoline TAB] 25 mg PO Q8HR #90 tab 10/29/19 Unknown Rx lisinopriL [Zestril TAB] 20 mg PO QDAY #30 tablet 10/29/19 Unknown Rx Allergies Allergy/AdvReac Type Severity Reaction Status Date / Time No Known Allergies Allergy Verified 11/09/18 08:47 ED Review of Systems ROS: Stated complaint: ELEVATED BLOOD PRESSURE Other details as noted in HPI Constitutional: malaise, weakness. denies: fever Eyes: denies: eye discharge Respiratory: denies: wheezing Cardiovascular: denies: syncope Gastrointestinal: denies: nausea Genitourinary: as per HPI. denies: dysuria Musculoskeletal: arthralgia, myalgia Skin: as per HPI. denies: lesions Neurological: weakness Psychiatric: denies: homicidal thoughts, suicidal thoughts Hematological/Lymphatic: as per HPI ED Past Medical Hx - Past Medical History Previous Medical History?: Yes Hx Hypertension: Yes Hx Congestive Heart Failure: Yes Hx Diabetes: No Hx Asthma: No Hx COPD: No Hx HIV: No Additional medical history: heart murmer - Surgical History Past Surgical History?: No - Social History Smoking Status: Current Every Day Smoker Substance Use Type: Alcohol - Medications Home Medications: Home Medications Medication Instructions Recorded Confirmed Last Taken Type Apixaban [Eliquis] 5 mg PO BID #60 tablet 10/29/19 Unknown Rx Ferrous Sulfate [Ferrous Sulfate 324 mg PO TID #90 tablet.dr 10/29/19 Unknown Rx 324 MG] Furosemide [Lasix TAB] 40 mg PO QDAY #30 tablet 10/29/19 Unknown Rx Multivitamin with Folic Acid [[facility] 400 mcg PO QDAY #30 tablet 10/29/19 Unknown Rx One Daily Essential Tablet] chlordiazePOXIDE [Librium] 25 mg PO Q6H PRN #25 capsule 10/29/19 Unknown Rx hydrALAZINE [Apresoline TAB] 25 mg PO Q8HR #90 tab 10/29/19 Unknown Rx lisinopriL [Zestril TAB] 20 mg PO QDAY #30 tablet 10/29/19 Unknown Rx ED Physical Exam - General Limitations: No Limitations General appearance: alert, anxious, in distress, obese - Head Head exam: Present: atraumatic, normocephalic - Eye Eye exam: Present: normal appearance, EOMI, other (Visual acuity intact to finger counting, color perception, reading at a close distance). Absent: nystagmus - ENT ENT exam: Present: normal exam, mucous membranes moist, normal external ear exam, other (Tongue fasciculations noted) - Neck Neck exam: Present: normal inspection, full ROM. Absent: tenderness, meningismus - Respiratory Respiratory exam: Present: normal lung sounds bilaterally. Absent: respiratory distress - Cardiovascular Cardiovascular Exam: Present: tachycardia, irregular rhythm, normal heart sounds. Absent: regular rate, bradycardia, systolic murmur, diastolic murmur, rubs, gallop - GI/Abdominal GI/Abdominal exam: Present: soft. Absent: distended, tenderness, guarding, rebound, rigid, pulsatile mass - Extremities Exam Extremities exam: Present: normal inspection, full ROM, other (2+ pulses noted in the bilateral upper and lower extremities. There is no palpable cord. negative Homans sign. Muscular compartments are soft. The pelvis is stable.). Absent: pedal edema, calf tenderness - Back Exam Back exam: Present: normal inspection. Absent: tenderness, CVA tenderness (R), CVA tenderness (L), paraspinal tenderness, vertebral tenderness - Neurological Exam Neurological exam: Present: alert, oriented X3, other (There is no facial droop. The tongue is midline. Extraocular movements are intact bilaterally. There is 5 out of 5 strength in bilateral upper and lower extremities. Sensation is int act to light touch bilateral upper and lower extremities. There is no past- pointing. There is no pronator drift. There is normal [id number]. ). Absent: motor sensory deficit - Psychiatric Psychiatric exam: Present: anxious. Absent: homicidal ideation, suicidal ideation - Skin Skin exam: Present: warm, dry, intact, normal color. Absent: rash ED Course Vital Signs 10/29/19 10/29/19 10/29/19 19:25 20:38 21:00 Temperature 98.0 F Pulse Rate 114 H 93 H Respiratory 20 36 H Rate Blood Pressure 144/61 Blood Pressure 175/84 [Right] O2 Sat by Pulse 100 85 100 Oximetry 10/29/19 10/29/19 21:30 22:18 Temperature Pulse Rate 92 H 105 H Respiratory 25 H Rate Blood Pressure 147/59 138/65 Blood Pressure [Right] O2 Sat by Pulse 100 Oximetry - Reevaluation(s) Reevaluation #1: 10/29/19 21:50 Differential diagnosis, including but not limited to: Alcohol withdrawal, alcohol dependence, electrolyte derangement, thyroid derangement, medication noncompliance, anemia Assessment and plan: 49-year-old female, who is minimally tachycardic, anxious at this time, tongue fasciculations noted, noncompliant with medications secondary to physical reasons, clinically sober at this time, without pulmonary embolism or DVT risk factors, who is low risk by Wells criteria. I suspect that the patient is experiencing natural history of her numerous chronic medical issues which appear to be poorly controlled. Incidental anemia is reviewed and appreciated, the patient has experienced this in the past. We will treat her empirically with Valium, put her on alcohol withdrawal protocol, obtain CT scan of the brain to exclude intracranial hemorrhage, perform guaiac examination, restart some of patient's medications, and reassess. At this point in time, the patient is unlikely to meet criteria for hospitalization. In addition, the patient can be given an affordable Rx prescription card, 30-day resupply of her prescriptions, and she is counseled that she can follow-up with an outpatient title 1 tutor closely as an outpatient to discuss alternatives to her medicati ons. Once all of her diagnostics result, we will reassess. Of note, the patient did not endorse any irritative or obstructive urinary symptoms. Reevaluation #2: 10/29/19 22:08 Rectal examination: Chaperoned by corrugated box machine operator Veronica Fonseca No bleeding noted. Brown stool, guaiac negative. Discussed anemia with patient. She states that she is supposed to be on iron supplementation but has not been compliant with it. Tachycardia resolved. Serum toxicology study unr emarkable. Reevaluation #3: 10/29/19 22:28 ct head negative Tachycardia resolved on my repeat examination. Patient states that she feels much improved. She is walking with a steady gait. Repeat neurologic examination is unremarkable and unchanged. Discussed findings with patient, need to follow-up with an outpatient primary care doctor. She endorses understanding. Return precautions are reviewed. 10/29/19 22:32 ED Medical Decision Making - Lab Data Result diagrams: 10/29/19 21:22 10/29/19 20:49 Vital Signs 10/29/19 19:25 Temperature 98.0 F Pulse Rate 114 H Respiratory 20 Rate Blood Pressure 175/84 [Right] O2 Sat by Pulse 100 Oximetry Lab Results 10/29/19 10/29/19 10/29/19 Range/Units 20:49 20:49 21:22 WBC 4.9 4.6 (4.5-11.0) K/mm3 RBC 4.13 4.11 (3.65-5.03) M/mm3 Hgb 7.9 L 7.9 L (10.1-14.3) gm/dl Hct 26.8 L 26.5 L (30.3-42.9) % MCV 65 L 64 L (79-97) fl MCH 19 L 19 L (28-32) pg MCHC 30 30 (30-34) % RDW 23.4 H 23.3 H (13.2-15.2) % Plt Count 300 288 (140-440) K/mm3 Sodium 136 L (137-145) mmol/L Potassium 4.1 (3.6-5.0) mmol/L Chloride 101.7 (98-107) mmol/L Carbon Dioxide 21 L (22-30) mmol/L Anion Gap 17 mmol/L BUN 15 (7-17) mg/dL Creatinine 0.8 (0.7-1.2) mg/dL Estimated GFR > 60 ml/min BUN/Creatinine Ratio 19 % Glucose 91 (65-100) mg/dL Calcium 10.1 (8.4-10.2) mg/dL Vital Signs 10/29/19 19:25 Temperature 98.0 F Pulse Rate 114 H Respiratory 20 Rate Blood Pressure 175/84 [Right] O2 Sat by Pulse 100 Oximetry Lab Results 10/29/19 10/29/19 10/29/19 Range/Units 20:49 20:49 21:22 WBC 4.9 4.6 (4.5-11.0) K/mm3 RBC 4.13 4.11 (3.65-5.03) M/mm3 Hgb 7.9 L 7.9 L (10.1-14.3) gm/dl Hct 26.8 L 26.5 L (30.3-42.9) % MCV 65 L 64 L (79-97) fl MCH 19 L 19 L (28-32) pg MCHC 30 30 (30-34) % RDW 23.4 H 23.3 H (13.2-15.2) % Plt Count 300 288 (140-440) K/mm3 Sodium 136 L (137-145) mmol/L Potassium 4.1 (3.6-5.0) mmol/L Chloride 101.7 (98-107) mmol/L Carbon Dioxide 21 L (22-30) mmol/L Anion Gap 17 mmol/L BUN 15 (7-17) mg/dL Creatinine 0.8 (0.7-1.2) mg/dL Estimated GFR > 60 ml/min BUN/Creatinine Ratio 19 % Glucose 91 (65-100) mg/dL Calcium 10.1 (8.4-10.2) mg/dL Magnesium (1.7-2.3) mg/dL Total Creatine Kinase (30-135) units/L 10/29/19 Range/Units 21:22 WBC (4.5-11.0) K/mm3 RBC (3.65-5.03) M/mm3 Hgb (10.1-14.3) gm/dl Hct (30.3-42.9) % MCV (79-97) fl MCH (28-32) pg MCHC (30-34) % RDW (13.2-15.2) % Plt Count (140-440) K/mm3 Sodium (137-145) mmol/L Potassium (3.6-5.0) mmol/L Chloride (98-107) mmol/L Carbon Dioxide (22-30) mmol/L Anion Gap mmol/L BUN (7-17) mg/dL Creatinine (0.7-1.2) mg/dL Estimated GFR ml/min BUN/Creatinine Ratio % Glucose (65-100) mg/dL Calcium (8.4-10.2) mg/dL Magnesium 2.00 (1.7-2.3) mg/dL Total Creatine Kinase 83 (30-135) units/L - EKG Data -: EKG Interpreted by Me Rate: tachycardia - EKG Data 10/29/19 21:52 This is A. fib, 106 bpm, variable atrial rate, QTC within normal limits, motion artifact. The EKG is not a STEMI. It appears to be unchanged from prior EKG on 07/20/2019 - Radiology Data Radiology results: report reviewed, image reviewed interpreted by me: Noncontrast CT scan of the brain to my interpretation is negative for acute findings. Print Report Referring Physician: MARY ANNE DINERO Patient Name: LISETH DEJESUS Date of : 1970 Sex: Female Report Date: 2019-10-29 Report Status: Finalized Findings [facility] [address] [place] [address] XRay Report Signed Patient: LISETH DEJESUS MR#: [id number] : 1970 Acct:[id number] Age/Sex: 49 / F ADM Date: 10/29/19 Loc: ED Attending Dr: Jayesh flores Physician: MARY ANNE DINERO MD Date of Service: 10/29/19 Procedure(s): XR chest 1V ap Accession Number(s): [id number] cc: MARY ANNE DINERO MD Fluoro Time In Minutes: CHEST 1 VIEW 10/29/2019 7:51 PM INDICATION / CLINICAL INFORMATION: Chest Pain. COMPARISON: 07/20/19 FINDINGS: SUPPORT DEVICES: None. HEART / MEDIASTINUM: Heart is mildly enlarged but stable. LUNGS / PLEURA: No significant pulmonary or pleural abnormality. No pneumothorax. ADDITIONAL FINDINGS: No significant additional findings. IMPRESSION: 1. Mild cardiomegaly but no acute pulmonary or pleural findings. Signer Name: Bushra Pearson MD Signed: 10/29/2019 9:04 PM Workstation Name: [id number] Transcribed By: DT Dictated By: Yazan Pearson MD Electronically Authenticated By: Yazan Pearson MD Signed Date/Time: 10/29/192103 DD/ 02 Critical care attestation.: If time is entered above; I have spent that time in minutes in the direct care of this critically ill patient, excluding procedure time. ED Disposition Clinical Impression: Chronic a-fib, Noncompliance, History of alcohol use Hypertension Qualifiers: Hypertension type: unspecified Qualified Code(s): I10 - Essential (primary) hypertension Anemia Qualifiers: Anemia type: unspecified type Qualified Code(s): D64.9 - Anemia, unspecified Disposition: DC-01 TO HOME OR SELFCARE Is pt being admited?: No Does the pt Need Aspirin: No Condition: Stable Instructions: Hypertension (ED) Additional Instructions: Do not drive or operate motor vehicles until cleared to do so by her primary care doctor or title 1 tutor. Recommend minimizing alcohol consumption, and avoidance of alcohol consumption altogether, if possible. Patient may take the Librium medication as needed for sensation of shaking, and alcohol withdrawal. Take the multivitamin on a daily basis. Recommend that patient consume a low-salt diet, and take the prescribed medications as directed. Patient may also use the [employer] prescription card to shop around and find affordable prescriptions. Recommend that patient follow-up with a primary care doctor within the next week, such as Dr. Josh Valverde, and a title 1 tutor within the next week, such as Dr. Bushra Esposito. It is important to follow-up with both primary care and cardiology to maintain general health, and to evaluate the patient's medications. Not taking prescribed medications may result in poorly controlled hypertension, heart attack, stroke, all of which can cause disability, , paralysis, loss of quality of life. Take the iron supplementation as directed. Iron supplementation may cause constipation, as well as black stool. For the time being, avoid consumption of Motrin, ibuprofen, Naprosyn, Aleve. Drink at least 2 to 3 cups of water per day. In addition, recommend plenty of fiber, vegetables, and lean protein in patient's diet. Avoid consumption of simple carbohydrates and excessive sugar. Please return to the emergency room right away with new pain, worsening pain, migration of pain, projectile vomiting, change in mental status, confusion, inability to tolerate liquid feeds, new, worsened or different symptoms not present on initial emergency room evaluation. Prescriptions: hydrALAZINE [Apresoline TAB] 25 mg PO Q8HR #90 tab Multivitamin with Folic Acid [Cvs One Daily Essential Tablet] 400 mcg PO QDAY #30 tablet Apixaban [Eliquis] 5 mg PO BID #60 tablet Ferrous Sulfate [Ferrous Sulfate 324 MG] 324 mg PO TID #90 tablet. Furosemide [Lasix TAB] 40 mg PO QDAY #30 tablet chlordiazePOXIDE [Librium] 25 mg PO Q6H PRN #25 capsule PRN Reason: Alcohol Withdrawal lisinopriL [Zestril TAB] 20 mg PO QDAY #30 tablet Referrals: STEVE VALVERDE MD [Staff Physician] - 3-5 Days DOMITILA ESPOSITO MD [Staff Physician] - 3-5 Days
[2019-10-29 21:19] LABS: Hematocrit 26.8 % (30.3-42.9); Hemoglobin 7.9 gm/dl (10.1-14.3); Mean Corpuscular HGB Conc 30 % (30-34); Platelet Count 300 K/mm3 (140-440); Red Blood Count 4.13 M/mm3 (3.65-5.03)
[2019-10-29 21:24] LABS: BUN/Creatinine Ratio 19; Blood Urea Nitrogen 15 mg/dL (7-17); Calcium 10.1 mg/dL (8.4-10.2); Hemolysis Index 1
[2019-10-29 21:28] LABS: Mean Corpuscular Volume 65 fl (79-97); Red Cell Distribution Width 23.4 % (13.2-15.2)
[2019-10-29 21:35] LABS: Hematocrit 26.5 % (30.3-42.9); Hemoglobin 7.9 gm/dl (10.1-14.3); Mean Corpuscular HGB Conc 30 % (30-34); Platelet Count 288 K/mm3 (140-440); Red Blood Count 4.11 M/mm3 (3.65-5.03)
[2019-10-29 21:36] LABS: Mean Corpuscular Volume 64 fl (79-97); Red Cell Distribution Width 23.3 % (13.2-15.2)
[2019-10-29] MEDS ORDERED: FUROSEMIDE 40 MG TAB PO SCH (22:00)
[2019-10-29 22:11] LABS: Anisocytosis 1+; Basophils % (Manual) 0 % (0.0-1.8); Eosinophils % (Manual) 0 % (0.0-4.3); Hypochromasia 1+; Total Cells Counted 100
[2019-10-29 22:12] LABS: Schistocytes 1+
--- NOTE | 2019-10-29 22:19 | Cat Scan Report ---
CT HEAD WITHOUT CONTRAST INDICATION / CLINICAL INFORMATION: AFib dizzy EtOH. TECHNIQUE: All CT scans at this location are performed using CT dose reduction for ALARA by means of automated e xposure control. COMPARISON: CT dated 01/14/15 FINDINGS: HEMORRHAGE: None. EXTRA-AXIAL SPACES: Normal in size and morphology for the patient's age. VENTRICULAR SYSTEM: Normal in size and morphology for the patient's age. CEREBRAL PARENCHYMA: No significant abnormality. No acute territorial infarct. MIDLINE SHIFT OR HERNIATION: None. CEREBELLUM / BRAINSTEM: No significant abnormality. ORBITS: Normal as visualized. SOFT TISSUES of HEAD: No significant abnormality. CALVARIUM: No significant abnormality. PARANASAL SINUSES / MASTOID AIR CELLS: Normal as visualized. ADDITIONAL FINDINGS: None. IMPRESSION: 1. No acute intracranial abnormality. No significant change. Signer Name: Bushra Pearson MD Signed: 10/29/2019 10:15 PM Workstation Name: [id number]
== END 2019-10-29 22:46 | disposition home or self-care (01) ==
LOC: ED 19:21
DX: D64.9 Anemia, unspecified (principal); I11.0 Hypertensive heart disease with heart failure; I50.9 Heart failure, unspecified; F17.200 Nicotine dependence, unspecified, uncomplicated; Z79.899 Other long term (current) drug therapy
CPT/HCPCS: 36415; 70450; 71045; 80048; 82271; 82550; 83735; 84443; 85007; 85025; 85027; 96374; 99285; J3360; 80320; 93005; G0480

== ENCOUNTER 2019-11-26 13:15 | Emergency (ER) | payer SELFPAY ==
[2019-11-26] MEDS ORDERED: ETOMIDATE 20 MG/10 ML INJ IV ONE ×3 (13:33→16:20)
--- NOTE | 2019-11-26 13:51 | Emergency Department Report ---
ED Neuro Deficit HPI - General Chief Complaint: Altered Mental Status Stated Complaint: AMS Time Seen by Provider: 11/26/19 13:20 - History of Present Illness Initial Comments: [facility] Date of Service: 11/26/2019 13:23:40 Impression: AMS Comments/Sign-Out: Acute altered mental status of unclear etiology. She is not following examination but is non focal at this time just very agitated and combative and is currently in restraints. Work up for toxic/metabolic/infectious etiology Metrics: Last Known Well: 11/26/2019 10:00:00 [employer] Notification Time: 11/26/2019 13:23:15 Arrival Time: 11/26/2019 13:18:00 Stamp Time: 11/26/2019 13:23:40 Time First Login Attempt: 11/26/2019 13:27:50 Video Start Time: 11/26/2019 13:27:50 Symptoms: AMS NIHSS Start Assessment Time: 11/26/2019 13:40:00 Patient is not a candidate for tPA. Patient was not deemed candidate for tPA thrombolytics because of on Eliquis and unclear etiology at this time. . Video End Time: 11/26/2019 13:47:10 Clinical Presentation is not Suggestive of Large Vessel Occlusive Disease ED Physician notified of diagnostic impression and management plan on 11/26/2019 13:47:09 Our recommendations are outlined below. Recommendations: Activate Stroke Protocol Admission/Order Set Stroke/Telemetry Floor Neuro Checks Bedside Swallow Eval DVT Prophylaxis IV Fluids, Normal Saline Head of Bed 30 Degrees Euglycemia and Avoid Hyperthermia (PRN Acetaminophen) EEG MRI brain Routine Consultation with Inhouse Neurology for Follow up Care Sign Out: Discussed with Emergency Department Provider History of Present Illness: Patient is a 49 year old Female. Patient was brought by EMS for symptoms of AMS Hx of HTN, AFIB, CHF and CAD Family found patient down on ground and she has been combative since being transferred to ED. EMS VSS. According to EMS there is a smell of etoh on patient as well Examination: BP(174/59), Pulse(85), 1A: Level of Consciousness - Requires repeated stimulation to arouse + 2 1B: Ask Month and Age - Could Not Answer Either Question Correctly + 2 1C: Blink Eyes & Squeeze Hands - Performs 0 Tasks + 2 2: Test Horizontal Extraocular Movements - Normal + 0 3: Test Visual Boswell - No Visual Loss + 0 4: Test Facial Palsy (Use Grimace if Obtunded) - Normal symmetry + 0 5A: Test Left Arm Motor Drift - Drift, hits bed + 2 5B: Test Right Arm Motor Drift - Drift, hits bed + 2 6A: Test Left Leg Motor Drift - Drift, hits bed + 2 6B: Test Right Leg Motor Drift - Drift, hits bed + 2 7: Test Limb Ataxia (FNF/Heel-Ca) - Does Not Understand + 0 8: Test Sensation - Coma/Unresponsive + 2 9: Test Language/Aphasia - Coma/Unresponsive + 3 10: Test Dysarthria - Intubated/Unable to Test + 0 11: Test Extinction/Inattention - No abnormality + 0 NIHSS Score: 19 Patient/Family was informed the Neurology Consult would happen via TeleHealth consult by way of interactive audio and video telecommunications and consented to receiving care in this manner. Due to the immediate potential for life-threatening deterioration due to underlying acute neurologic illness, I spent 35 minutes providing critical care. This time includes time for face to face visit via telemedicine, review of medical records, imaging studies and discussion of findings with providers, the patient and/or family. Dr Sonu Wright [facility] Case [id number] - Related Data Home Medications: Previous Rx's Medication Instructions Recorded Last Taken Type Apixaban [Eliquis] 5 mg PO BID #60 tablet 10/29/19 Unknown Rx Ferrous Sulfate [Ferrous Sulfate 324 mg PO TID #90 tablet. 10/29/19 Unknown Rx 324 MG] Furosemide [Lasix TAB] 40 mg PO QDAY #30 tablet 10/29/19 Unknown Rx Multivitamin with Folic Acid [Cvs 400 mcg PO QDAY #30 tablet 10/29/19 Unknown Rx One Daily Essential Tablet] chlordiazePOXIDE [Librium] 25 mg PO Q6H PRN #25 capsule 10/29/19 Unknown Rx hydrALAZINE [Apresoline TAB] 25 mg PO Q8HR #90 tab 10/29/19 Unknown Rx lisinopriL [Zestril TAB] 20 mg PO QDAY #30 tablet 10/29/19 Unknown Rx Allergies/Adverse Reactions: Allergies Allergy/AdvReac Type Severity Reaction Status Date / Time No Known Allergies Allergy Verified 11/09/18 08:47 ED Review of Systems ROS: Stated complaint: AMS Other details as noted in HPI ED Past Medical Hx - Past Medical History Hx Hypertension: Yes Hx Congestive Heart Failure: Yes Hx Diabetes: No Hx Asthma: No Hx COPD: No Hx HIV: No Additional medical history: heart murmer - Social History Substance Use Type: None - Medications Home Medications: Home Medications Medication Instructions Recorded Confirmed Last Taken Type Apixaban [Eliquis] 5 mg PO BID #60 tablet 10/29/19 Unknown Rx Ferrous Sulfate [Ferrous Sulfate 324 mg PO TID #90 tablet. 10/29/19 Unknown Rx 324 MG] Furosemide [Lasix TAB] 40 mg PO QDAY #30 tablet 10/29/19 Unknown Rx Multivitamin with Folic Acid [[facility]vs 400 mcg PO QDAY #30 tablet 10/29/19 Unknown Rx One Daily Essential Tablet] chlordiazePOXIDE [Librium] 25 mg PO Q6H PRN #25 capsule 10/29/19 Unknown Rx hydrALAZINE [Apresoline TAB] 25 mg PO Q8HR #90 tab 10/29/19 Unknown Rx lisinopriL [Zestril TAB] 20 mg PO QDAY #30 tablet 10/29/19 Unknown Rx ED Neuro Physical Exam - General Suspected Stroke: No (no) Critical care attestation.: If time is entered above; I have spent that time in minutes in the direct care of this critically ill patient, excluding procedure time. ED Disposition Clinical Impression: Altered behavior Disposition: DC-09 OP ADMIT IP TO THIS HOSP Is pt being admited?: Yes Condition: Stable Referrals: PRIMARY CARE, [Primary Care Provider] - 3-5 Days
--- NOTE | 2019-11-26 14:02 | Emergency Department Report ---
HPI - HPI HPI: Room 18 The patient is a 49-year-old female present with a chief complaint of altered mental status. Per EMS the patient's last known well time was approximately 10: 00 this morning. Family heard the patient fall and when they went to check on her she had altered mental status. Per EMS the patient has been nonverbal and moving erratically. Patient does not respond to questions. Per EMS he thinks he smelled alcohol on the patient's breath <DALILA PALMA - Last Filed: 11/26/19 15:56> <JUANI CUELLO - Last Filed: 11/26/19 17:33> - General Time Seen by Provider: 11/26/19 13:20 ED Past Medical Hx - Past Medical History Hx Hypertension: Yes Hx Congestive Heart Failure: Yes Additional medical history: heart murmer. A. fib - Family History Family history: no significant - Social History Smoking Status: Unknown if ever smoked Substance Use Type: None <DALILA PALMA - Last Filed: 11/26/19 15:56> <JUANI CUELLO - Last Filed: 11/26/19 17:33> - Medications Home Medications: Home Medications Medication Instructions Recorded Confirmed Last Taken Type Apixaban [Eliquis] 5 mg PO BID #60 tablet 10/29/19 Unknown Rx Ferrous Sulfate [Ferrous Sulfate 324 mg PO TID #90 tablet.dr 10/29/19 Unknown Rx 324 MG] Furosemide [Lasix TAB] 40 mg PO QDAY #30 tablet 10/29/19 Unknown Rx Multivitamin with Folic Acid [Cvs 400 mcg PO QDAY #30 tablet 10/29/19 Unknown Rx One Daily Essential Tablet] chlordiazePOXIDE [Librium] 25 mg PO Q6H PRN #25 capsule 10/29/19 Unknown Rx hydrALAZINE [Apresoline TAB] 25 mg PO Q8HR #90 tab 10/29/19 Unknown Rx lisinopriL [Zestril TAB] 20 mg PO QDAY #30 tablet 10/29/19 Unknown Rx ED Review of Systems ROS: Stated complaint: AMS Other details as noted in HPI Comment: Unobtainable due to pts medical conditions <DALILA PALMA - Last Filed: 11/26/19 15:56> ROS: Stated complaint: AMS Other details as noted in HPI <JUANI CUELLO - Last Filed: 11/26/19 17:33> Physical Exam - Physical Exam Physical Exam: GENERAL: The patient is well-developed well-nourished female lying on stretcher with occasional erratic movements. Patient does not make eye contact or speak. [] HEENT: Normocephalic. Atraumatic. Extraocular motions are intact. Patient has moist mucous membranes. NECK: Supple. Trachea midline CHEST/LUNGS: Clear to auscultation. There is no respiratory distress noted. HEART/CARDIOVASCULAR: Regular. There is no tachycardia. There is no gallop rub or murmur. ABDOMEN: Abdomen is soft, nontender. Patient has normal bowel sounds. There is no abdominal distention. SKIN: There is no rash. There is no edema. There is no diaphoresis. NEURO: The patient is obtunded. Patient moves all extremities well. The patient is not cooperative with neurologic exam. The patient does not respond verbally MUSCULOSKELETAL:There is no evidence of acute injury. <DALILA PALMA - Last Filed: 11/26/19 15:56> ED Course - Consultations Consultation #1: 11/26/19 14:47 Case discussed with [id number] and/or [place] transfer <DALILA PALMA - Last Filed: 11/26/19 15:56> - Central Line Placement Right Femoral Consent Obtained: emergent situation Time Out Performed: Yes Patient Placed on Monitor/Pulse Ox: Yes Prep: mask, gown, gloves Central Line Prep: Chlorhexidine scrub Local Anesthesia Used: Lidocaine 1% Amount of Anesthesia Used (mls): 5 Ultrasound Used for Placement: No Central Line Lumen Inserted: triple Bloods Obtained for Lab: No Central Line Position: good blood return, all ports aspirated, flus, sutured in place with 2-0 Patient Tolerated Procedure: no complications Complications: none <DALILA PALMA Last Filed: 11/26/19 15:56> ED Medical Decision Making - Lab Data Result diagrams: 11/26/19 14:00 11/26/19 14:00 - EKG Data -: EKG Interpreted by Me EKG shows normal: sinus rhythm Rate: normal - EKG Data When compared to previous EKG there are: previous EKG unavailable Interpretation: nonspecific ST-T wave juan david (T wave inversion in lead III) - Radiology Data Radiology results: report reviewed (CT head, CT cervical spine), image reviewed (CT head, CT cervical spine) [facility] [address] [place] [address] Cat Scan Report Signed Patient: LISETH DEJESUS MR#: [id number] : 1970 Acct:[id number] Age/Sex: 49 / F ADM Date: 11/26/19 Loc: ED Attending Dr: Ordering Physician: DALILA PALMA MD Date of Service: 11/26/19 Procedure(s): CT head/brain wo con Accession Number(s): [id number] cc: DALILA PALMA MD CT head/brain wo con INDICATION / CLINICAL INFORMATION: 49 years Female; MAIN: CODE STROKE, [id number] AMS, BEST IMAGES POSSIBLE . TECHNIQUE: Routine CT head without contrast. All CT scans at this location are performed using CT dose reduction for ALARA by means of automated exposure control. COMPARISON: The study is compared to the previous CT of 10/29/2019. FINDINGS: BRAIN / INTRACRANIAL CONTENTS: The motion degrades the image quality despite repeat imaging. However, there is relative increased attenuation projected within the proximal right MCA concerning for thrombus in this code stroke exam. There appear to be a mild scattered white matter changes including along the right external capsule most consistent with microvascular angiopathy at. There is no clear CT evidence of acute intracranial hemorrhage. The ventricular system is appropriate in size and configuration. ORBITS: No significant abnormality of visualized orbits. SINUSES / MASTOIDS: No significant abnormality in the visualized paranasal sinuses or mastoid air cells. CRANIOCERVICAL JUNCTION: No significant abnormality. ADDITIONAL FINDINGS: None. IMPRESSION: 1. The study is limited by motion. However, there is increased attenuation projected within the right MCA concerning for thrombus as detailed above. 2. There is mild microvascular angiopathy without clear CT evidence of acute intracranial hemorrhage. The study was specified as code stroke and called emergently to Dr. Palma in the ER at 1:31 PM Central standard time. Signer Name: Sean Malcolm MD Signed: 11/26/2019 2:33 PM Workstation Name: [id number] Transcribed By: MR Dictated By: Sean Malcolm MD Electronically Authenticated By: Sean Malcolm MD Signed Date/Time: 11/26/19 1433 DD/ 1427 TD/TT: [facility] [address] [place] [id number] Cat Scan Report Signed Patient: LISETH DEJESUS MR#: [id number] : 1970 Acct:[id number] Age/Sex: 49 / F ADM Date: 11/26/19 Loc: ED Attending Dr: Ordering Physician: DALILA PALMA MD Date of Service: 11/26/19 Procedure(s): CT cervical spine wo con Accession Number(s): [id number] cc: DALILA PALMA MD CT cervical spine wo con INDICATION / CLINICAL INFORMATION: 49 years Female; MAIN: Fall, head injury, BEST POSSIBLE IMAGES. TECHNIQUE: Axial CT images of the cervical spine were obtained. Sagittal and coronal reformatted images were produced. All CT scans at this location are performed using CT dose reduction for ALARA by means of automated exposure control. COMPARISON: None available. FINDINGS: POST-SURGICAL CHANGES: None. ALIGNMENT: The cervical spine demonstrate appropriate alignment without significant spondylolisthesis. VERTEBRAE:There is notable beam hardening artifact from the patient's body habitus and posterior external metallic object. However, there is no CT evidence of acute fracture involving the cervical spine. INTRAVERTEBRAL DISCS: There is no definitive CT evidence of significant bony of spinal stenosis involving the cervical spine. The neural foramen appear patent. PARASPINAL SOFT TISSUES: No prevertebral soft tissue fluid collections are identified. ADDITIONAL FINDINGS: None. IMPRESSION: 1. The beam hardening degrades the image quality. However, there is no clear CT evidence of acute fracture involving the cervical spine. Signer Name: Sean Malcolm MD Signed: 11/26/2019 2:39 PM Workstation Name: [id number] Transcribed By: MR Dictated By: Sean Malcolm MD Electronically Authenticated By: Sean Malcolm MD Signed Date/Time: 11/26/19 1439 DD/ 1434 TD/TT: - Differential Diagnosis Altered mental status, ICH, alcohol intoxication, <DALILA PALMA K - Last Filed: 11/26/19 15:56> - Lab Data Result diagrams: 11/26/19 14:00 11/26/19 14:00 - Medical Decision Making Patient has been accepted to [facility] neuro ICU Cat Scan Report Signed Patient: LISETH DEJESUS MR#: [id number] : 1970 Acct:[id number] Age/Sex: 49 / F ADM Date: 11/26/19 Loc: ED Attending Dr: Ordering Physician: DALILA PALMA MD Date of Service: 11/26/19 Procedure(s): CT angio head Accession Number(s): [id number] cc: DALILA PALMA MD CT angio head INDICATION / CLINICAL INFORMATION: 49 years Female; MAIN: Altered mental status [id number] 100ml. TECHNIQUE: Thin cut axial images obtained through the head during IV bolus contrast administration. Sagittal, coronal, and 3 plane MIP reconstructions performed by the technologist. NASCET type criteria used evaluate stenoses. Automated exposure control utilized for radiation reduction purposes. COMPARISON: None available. FINDINGS: INTERNAL CAROTID ARTERIES: There is scattered at mild calcification involving the distal internal carotid arteries without significant stenosis by NASA criteria. VERTEBROBASILAR SYSTEM: There is also no significant focal narrowing involving the vertebral basilar system. 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 CEREBRAL ARTERIES: There is occlusion of the M1 segment of the right MCA measuring approximately 5 mm which correlates with the increased attenuation on the earlier CT and presence of thrombus. However, there is reconstitution of the insular branches more distally. There is no significant focal narrowing involving the remaining proximal cerebral arteries at. ANEURYSM: None identified. ADDITIONAL FINDINGS: The dural venous sinuses opacify with contrast. IMPRESSION: There is occlusion of the M1 segment of the right MCA as detailed above with reconstitution of the more distal insular branches as described. The findings correlate with presence of a thrombus a demonstrate on the earlier noncontrast head CT <JUANI CUELLO - Last Filed: 11/26/19 17:33> Critical care attestation.: If time is entered above; I have spent that time in minutes in the direct care of this critically ill patient, excluding procedure time. <DALILA PALMA - Last Filed: 11/26/19 15:56> Critical care attestation.: If time is entered above; I have spent that time in minutes in the direct care of this critically ill patient, excluding procedure time. <JUANI CUELLO - Last Filed: 11/26/19 17:33> ED Disposition <DALILA PALMA - Last Filed: 11/26/19 15:56> Is pt being admited?: No Does the pt Need Aspirin: No <JUANI CUELLO - Last Filed: 11/26/19 17:33> Clinical Impression: Acute right MCA stroke, Acute right arterial ischemic stroke, MCA (middle cerebral artery), Cerebral infarction due to vascular occlusion Disposition: DC/TX-70 ANOTHER TYPE [facility] Condition: Stable
[2019-11-26 14:26] LABS: Hematocrit 27.2 % (30.3-42.9); Hemoglobin 7.9 gm/dl (10.1-14.3); INR 1.12 (0.87-1.13); Mean Corpuscular HGB Conc 29 % (30-34); Mean Corpuscular Volume 64 fl (79-97); Platelet Count 318 K/mm3 (140-440); Red Blood Count 4.24 M/mm3 (3.65-5.03); Red Cell Distribution Width 23.4 % (13.2-15.2)
[2019-11-26 14:27] LABS: Partial Thromboplastin Time 28.1 Sec. (24.2-36.6); Thrombin Time 18.1 Sec. (15.1-19.6)
[2019-11-26 14:30] LABS: BUN/Creatinine Ratio 19; Blood Urea Nitrogen 13 mg/dL (7-17); Calcium 9.9 mg/dL (8.4-10.2); Hemolysis Index 3
[2019-11-26] MEDS ORDERED: MIDAZOLAM 5 MG/5 ML INJ MDV IV NR (15:00)
[2019-11-26 15:14] LABS: Basophils % (Manual) 0 % (0.0-1.8); Total Cells Counted 100
[2019-11-26 15:16] LABS: Hypochromasia 2+; Platelet Estimate Consistent w Auto; Target Cells Few
[2019-11-26] MEDS ORDERED: SODIUM CHLORIDE 0.9% 1000 ML 1,000 ML ONE (18:40)
[2019-11-26 19:13] VITALS: BP 179/64
== END 2019-11-26 19:14 | disposition other institution (70) ==
LOC: ED 13:15
DX: R41.82 Altered mental status, unspecified (principal)
CPT/HCPCS: 36415; 36558; 70450; 70496; 70498; 72125; 80048; 85007; 85025; 85610; 85670; 85730; 93005; 96374; 96375; 99285; J2250; J7030; Q9967; 80320; G0480

== ENCOUNTER 2020-01-27 08:10 | Emergency (ER) | payer SELFPAY ==
[2020-01-27] MEDS ORDERED: chlordiazePOXIDE 25 MG CAP PO PRN (08:30)
[2020-01-27] MEDS ORDERED: LORazepam 2 MG/ML VIAL IV PRN ×3 (08:30)
[2020-01-27] MEDS ORDERED: ONDANSETRON 4 MG/2 ML INJ IV ONE (08:30)
[2020-01-27] MEDS ORDERED: MORPHINE 4 MG/1 ML INJ IV ONE (08:30)
--- NOTE | 2020-01-27 09:06 | Emergency Department Report ---
ED General Adult HPI - General Chief complaint: Dyspnea/Respdistress Stated complaint: KAL PUI?: Yes Time Seen by Provider: 01/27/20 08:16 Source: patient, RN notes reviewed, old records reviewed Mode of arrival: Ambulatory Limitations: No Limitations - History of Present Illness Initial comments: During the entire history and physical examination, I had on complete personal protective equipment. Past medical history: Chronic diastolic CHF, paroxysmal A. fib, reports compliance with Eliquis, hypertension, history of alcoholism, bradycardia The patient is a 49-year-old female who presents with a complaint of epigastric pain, and shortness of breath. Symptoms started within the past 12 hours. No fever, no loss of taste or smell, no exposure to COVID individuals that she is aware of. She endorses a few episodes of nonbloody, nonbilious emesis, and a few episodes of watery diarrhea. She denies DVT and pulmonary embolism risk factors. She has shortness of breath, which worsens with physical exertion and decreases with rest. No leg pain, no leg swelling. She last consumed alcohol yesterday. She is not homicidal or suicidal. She denies dysuria. Main complaint is exertional shortness of breath. -: Gradual, hour(s) Location: abdomen Radiation: non-radiation Severity scale (0 -10): 2 Quality: aching Consistency: intermittent Improves with: rest Worsens with: movement - Related Data Previous Rx's Medication Instructions Recorded Last Taken Type Apixaban [Eliquis] 5 mg PO BID #60 tablet 10/29/19 Unknown Rx Ferrous Sulfate [Ferrous Sulfate 324 mg PO TID #90 tablet. 10/29/19 Unknown Rx 324 MG] Furosemide [Lasix TAB] 40 mg PO QDAY #30 tablet 10/29/19 Unknown Rx Multivitamin with Folic Acid [[facility] 400 mcg PO QDAY #30 tablet 10/29/19 Unknown Rx One Daily Essential Tablet] chlordiazePOXIDE [Librium] 25 mg PO Q6H PRN #25 capsule 10/29/19 Unknown Rx hydrALAZINE [Apresoline TAB] 25 mg PO Q8HR #90 tab 10/29/19 Unknown Rx lisinopriL [Zestril TAB] 20 mg PO QDAY #30 tablet 10/29/19 Unknown Rx Acetaminophen [Non-Aspirin Extra 500 mg PO Q6HR PRN #30 tablet 01/27/20 Unknown Rx Strength] Dicyclomine [Bentyl] 10 mg PO QID PRN #20 capsule 01/27/20 Unknown Rx Furosemide [Lasix TAB] 40 mg PO QAM #7 tablet 01/27/20 Unknown Rx Furosemide [Lasix] 20 mg PO QHS #7 tablet 01/27/20 Unknown Rx Multivitamin with Folic Acid [[facility] 400 mcg PO QDAY #30 tablet 01/27/20 Unknown Rx One Daily Essential Tablet] Ondansetron [Zofran Odt] 4 mg PO Q8HR PRN #20 tab.rapdis 01/27/20 Unknown Rx Allergies Allergy/AdvReac Type Severity Reaction Status Date / Time No Known Allergies Allergy Verified 11/09/18 08:47 ED Review of Systems ROS: Stated complaint: KAL Other details as noted in HPI Constitutional: denies: fever Eyes: denies: eye discharge ENT: congestion Respiratory: cough, shortness of breath Cardiovascular: dyspnea on exertion Gastrointestinal: abdominal pain, nausea, vomiting, diarrhea Genitourinary: denies: dysuria Musculoskeletal: myalgia Skin: denies: lesions Neurological: weakness Psychiatric: denies: homicidal thoughts, suicidal thoughts Hematological/Lymphatic: denies: easy bleeding ED Past Medical Hx - Past Medical History Previous Medical History?: Yes Hx Hypertension: Yes Hx Congestive Heart Failure: Yes Hx Diabetes: No Hx Asthma: No Hx COPD: No Hx HIV: No Additional medical history: heart murmer. A. fib - Surgical History Past Surgical History?: No - Social History Smoking Status: Never Smoker Substance Use Type: None - Medications Home Medications: Home Medications Medication Instructions Recorded Confirmed Last Taken Type Apixaban [Eliquis] 5 mg PO BID #60 tablet 10/29/19 Unknown Rx Ferrous Sulfate [Ferrous Sulfate 324 mg PO TID #90 tablet. 10/29/19 Unknown Rx 324 MG] Furosemide [Lasix TAB] 40 mg PO QDAY #30 tablet 10/29/19 Unknown Rx Multivitamin with Folic Acid [[facility] 400 mcg PO QDAY #30 tablet 10/29/19 Unknown Rx One Daily Essential Tablet] chlordiazePOXIDE [Librium] 25 mg PO Q6H PRN #25 capsule 10/29/19 Unknown Rx hydrALAZINE [Apresoline TAB] 25 mg PO Q8HR #90 tab 10/29/19 Unknown Rx lisinopriL [Zestril TAB] 20 mg PO QDAY #30 tablet 10/29/19 Unknown Rx Acetaminophen [Non-Aspirin Extra 500 mg PO Q6HR PRN #30 tablet 01/27/20 Unknown Rx Strength] Dicyclomine [Bentyl] 10 mg PO QID PRN #20 capsule 01/27/20 Unknown Rx Furosemide [Lasix TAB] 40 mg PO QAM #7 tablet 01/27/20 Unknown Rx Furosemide [Lasix] 20 mg PO QHS #7 tablet 01/27/20 Unknown Rx Multivitamin with Folic Acid [[facility]vs 400 mcg PO QDAY #30 tablet 01/27/20 Unknown Rx One Daily Essential Tablet] Ondansetron [Zofran Odt] 4 mg PO Q8HR PRN #20 tab.rapdis 01/27/20 Unknown Rx ED Physical Exam - General Limitations: No Limitations General appearance: alert, in no apparent distress, obese - Head Head exam: Present: atraumatic, normocephalic - Eye Eye exam: Present: normal appearance, EOMI. Absent: nystagmus - ENT ENT exam: Present: normal exam, normal orophraynx, mucous membranes moist, normal external ear exam - Neck Neck exam: Present: normal inspection, full ROM. Absent: tenderness, meningismus - Respiratory Respiratory exam: Present: rales, other (Faint rales are appreciated bilaterally). Absent: respiratory distress, wheezes, rhonchi, stridor - Cardiovascular Cardiovascular Exam: Present: regular rate, irregular rhythm, normal heart sounds. Absent: bradycardia, tachycardia, systolic murmur, diastolic murmur, rubs, gallop - GI/Abdominal GI/Abdominal exam: Present: soft, tenderness (There is epigastric and bilateral upper quadrant tenderness, without rebound, guarding, peritoneal sign or Pineda sign.), normal bowel sounds. Absent: distended, guarding, rebound, rigid, pulsatile mass - Extremities Exam Extremities exam: Present: normal inspection, full ROM, normal capillary refill, other (2+ pulses noted in the bilateral upper and lower extremities. There is no palpable cord. negative Homans sign. Muscular compartments are soft. The pelvis is stable.). Absent: pedal edema, calf tenderness - Back Exam Back exam: Present: normal inspection, full ROM. Absent: tenderness, CVA tenderness (R), CVA tenderness (L), paraspinal tenderness, vertebral tenderness - Neurological Exam Neurological exam: Present: alert, normal gait, other (No facial droop. Tongue midline. Extraocular movements intact bilaterally. Facial sensation intact to light touch in V1, V2, V3 distribution bilaterally. 5 and a 5 strength in 4 extremities. Sensation intact to light touch in 4 extremities.). Absent: motor sensory deficit - Psychiatric Psychiatric exam: Present: anxious. Absent: homicidal ideation, suicidal ideation - Skin Skin exam: Present: warm, dry, intact, normal color. Absent: rash ED Course Vital Signs 01/27/20 01/27/20 01/27/20 08:18 08:19 08:25 Temperature 98 F Pulse Rate 94 H 97 H Respiratory 16 20 Rate Blood Pressure 146/77 O2 Sat by Pulse 98 96 95 Oximetry 01/27/20 01/27/20 01/27/20 08:31 08:45 09:00 Temperature Pulse Rate Respiratory Rate Blood Pressure 145/59 145/59 137/69 O2 Sat by Pulse 96 98 90 Oximetry 01/27/20 01/27/20 01/27/20 09:15 09:30 09:45 Temperature Pulse Rate Respiratory Rate Blood Pressure 145/59 162/87 137/69 O2 Sat by Pulse 92 92 92 Oximetry 01/27/20 01/27/20 01/27/20 10:01 10:17 10:30 Temperature Pulse Rate Respiratory Rate Blood Pressure 162/93 167/94 169/94 O2 Sat by Pulse 88 94 92 Oximetry 01/27/20 10:45 Temperature Pulse Rate Respiratory Rate Blood Pressure 162/93 O2 Sat by Pulse 95 Oximetry - Reevaluation(s) Reevaluation #1: 01/27/20 09:04 Differential diagnosis, including but not limited to: Congestive heart failure, mild, GERD, gastritis, hiatal hernia, pneumonia, bacterial versus viral/COVID, pancreatitis, alcoholic gastritis Assessment and plan: 49-year-old female with multiple complaints. Complaint #1, shortness of breath. Saturating at 98% on room air. Very faint rales appreciated. May have a component of mild congestive heart failure. On exercise tolerance test, ambulated for 5 minutes without significant symptomatology or desaturation. She does not require supplemental oxygen. Endorses compliance with systemic anticoagulation, denies DVT and pulmonary embolism risk factors and I find her to be low risk by Wells criteria, in addition, she is in chronic A. fib. Maintain on isolation/COVID precautions, check basic laboratory studies, x-ray of the chest, anticipate diuretic administration. Complaint #2, abdominal pain, nausea, vomiting and diarrhea in the context of recent alcohol consumption. She is clinically sober at this time. She is not homicidal or suicidal, and does not require 1013 at this time. Alcoholic gastritis versus early pancreatitis most likely etiology. Give pain control, antiemetics, obtain CT scan abdomen pelvis, and reassess. Check 1 troponin, EKG unchanged from prior, symptoms present for greater than 8 hours, therefore, as per the [employer] clinical policy, myocardial infarction may be ruled out with 1 set of cardiac enzymes. Furthermore, the patient is at low risk for major adverse cardiac event as per heart score. 01/27/20 12:40 01/27/20 12:45 Reevaluation #2: 01/27/20 12:39 Patient reassessed multiple times. Her work of breathing is within normal limits, she is not hypoxic and she is resting quite comfortably. She was given a dose of Lasix. CT scan abdomen pelvis is reviewed and appreciated. Right upper quadrant ultrasound is reviewed and appreciated. Abdomen soft on repeat exam. Patient suitable for trial of oral outpatient management. We will go up on her Lasix dose, she will need to follow-up with an outpatient primary care doctor or placement manager. Patient is suitable for trial of outpatient management at this time. ED Medical Decision Making - Lab Data Result diagrams: 01/27/20 08:40 01/27/20 08:40 Vital Signs 01/27/20 01/27/20 08:19 08:25 Temperature 98 F Pulse Rate 94 H 97 H Respiratory 16 20 Rate Blood Pressure 146/77 O2 Sat by Pulse 96 95 Oximetry - EKG Data -: EKG Interpreted by Me - EKG Data 01/27/20 09:06 A. fib, 81 bpm, normal axis, QTC prolonged, variable ventricular rate, abnormal EKG, not consistent with ST elevation myocardial infarction. Appears grossly unchanged from prior EKG from October 2019. - Radiology Data Radiology results: pending, report reviewed, image reviewed interpreted by me: 1 view x-ray of the chest, interpreted by myself, suggest pulmonary vascular congestion, enlarged cardiac silhouette Print Report Referring Physician: MARY ANNE DINERO Patient Name: LISETH DEJESUS Date of : 1970 Sex: Female Report Date: 2020-01-27 Report Status: Finalized Findings [facility] [address] [place] [address] Cat Scan Report Signed Patient: LISETH DEJESUS MR#: [id number] : 1970 Acct:[id number] Age/Sex: 49 / F ADM Date: 01/27/20 Loc: ED Attending Dr: Ordering Physician: MARY ANNE DINERO MD Date of Service: 01/27/20 Procedure(s): CT abdomen pelvis w con Accession Number(s): [id number] cc: MARY ANNE DINERO MD CT ABDOMEN AND PELVIS WITH IV CONTRAST INDICATION: epigastric pain. COMPARISON: CT 05/23/2018. TECHNIQUE: All CT scans at this facility use dose modulation, automated exposure control, iterative reconstruction or weight based dosing, when appropriate, to reduce radiation dose to as low as reasonably achievable. FINDINGS: Lung Bases: Small right and trace left pleural effusions are noted, incompletely evaluated on this exam. These are similar to the remote prior CT. There are atelectatic changes in the bases. Cardiomegaly is again noted. Skeletal System: No acute abnormality. ABDOMEN: Liver: No significant abnormality. Gallbladder: There is diffuse gallbladder wall edema. Bile Ducts: No significant abnormality. Pancreas: No significant abnormality. Spleen: No significant abnormality. Adrenals: Nodularity in the left adrenal gland is stable, this is likely due to the presence of small adenomas. Right Kidney: Mini mal nephrolithiasis. No hydronephrosis. Left Kidney: Minimal nephrolithiasis. No hydronephrosis. Upper GI tract: No significant abnormality. Lymph Nodes: No significant adenopathy. Aorta: No significant abnormality. Additional Findings: There is trace perihepatic ascites. PELVIS: Colon: No acute abnormality. Urinary Bladder and Distal Ureters: No significant abnormality. Appendix: No significant abnormality. Lymph Nodes: No significant adenopathy. Additional Findings: Enlarged leiomyomatous uterus is again noted with coarse central calcifications. IMPRESSION: 1. There is mild diffuse gallbladder wall edema with mild free fluid in the perihepatic region and pelvis. No CT evidence of gallstones or biliary dilatation. Ultrasound or HIDA scan may be useful to better characterize the gallbladder. 2. Incidental findings, as above. Signer Name: Santy Krueger MD Signed: 01/27/2020 10:54 AM Workstation Name: [id number] Transcribed By: Dictated By: Santy Krueger MD Electronically Authenticated By: Santy Krueger MD Signed Date/Time: 01/27/20 1054 DD/ 1048 TD/TT: Print Report Referring Physician: MARY ANNE DINERO Patient Name: LISETH DEJESUS Date of : 1970 Sex: Female Report Date: 2020-01-27 Report Status: Finalized Findings [address] [address] XRay Report Signed Patient: LISETH DEJESUS MR#: [id number] : 1970 Acct:[id number] Age/Sex: 49 / F ADM Date: 01/27/20 Loc: ED Attending Dr: Ordering Physician: MARY ANNE DINERO MD Date of Service: 01/27/20 Procedure(s): XR chest 1V ap Accession Number(s): [id number] cc: MARY ANNE DINERO MD Fluoro Time In Minutes: CHEST 1 VIEW INDICATION / CLINICAL INFORMATION: dyspnea chf vs c ovid. COMPARISON: Chest radiograph from 10/29/2019 FINDINGS: SUPPORT DEVICES: None. HEART / MEDIASTINUM: Cardiomegaly with cephalization of the pulmonary vasculature. Mediastinum otherwise appears satisfactory. LUNGS / PLEURA: Perihilar opacification worse in the bases. No pneumothorax. ADDITIONAL FIN DINGS: No significant additional findings. IMPRESSION: 1. Findings concerning for edema, developing pneumonia less likely. Signer Name: Stephy Camara MD Signed: 01/27/2020 9:43 AM Workstation Name: [id number] Transcribed By: Dictated By: STEPHY CAMARA III Electronically Authenticated By: STEPHY CAMARA III Signed Date/Time: 01/27/20 0943 DD/ 0941 TD/TT: Print Report Referring Physician: MARY ANNE DINERO Patient Name: LISETH DEJESUS Date of : 1970 Sex: Female Report Date: 2020-01-27 Report Status: Finalized Findings [address] [address] Ultrasound Report Signed Patient: LISETH DEJESUS MR#: [id number] : 1970 Acct:[id number] Age/Sex: 49 / F ADM Date: 01/27/20 Loc: ED Attending Dr: Ordering Physician: MARY ANNE DINERO MD Date of Service: 01/27/20 Procedure(s): US abdomen limited Accession Number(s): [id number] cc: MARY ANNE DINERO MD ULTRASOUND ABDOMEN, LIMITED (RIGHT UPPER QUADRANT) INDICATION: Abdominal pain, gallbladder edema. COMPARISON: CT abdomen and pelvis with contrast from earlier today. FINDINGS: Pancreas: Visualized portion shows no significant abnormality. Liver: No significant abnormality. Gallbladder: Partially contracted with generalized wall thickening that is likely related to under distention. No shadowing stones or pericholecystic fluid. Sonographic Pineda's sign: Negative. Bile ducts: No significant abnormality. Common Bile Duct measures 1.3 mm. Free fluid: None. Additional Findings: Small right pleural effusion. IMPRESSION: 1. Generalized gallbladder wall thickening is likely due to underdistention. No additional sonographic evidence of cholelithiasis or acute cholecystitis. 2. Small right pleural effusion. Signer Name: Harry Peralta MD Signed: 01/27/2020 12:11 PM Workstation Name: [id number] Transcribed By: [place] Dictated By: Harry Peralta MD Electronically Authenticated By: Harry Peralta MD Signed Date/Time: 01/27/20 1211 DD/ 1208 Critical care attestation.: If time is entered above; I have spent that time in minutes in the direct care of this critically ill patient, excluding procedure time. ED Disposition Clinical Impression: Chronic a-fib, CHF (congestive heart failure), Acute abdominal pain, History of alcohol use Disposition: DC-01 TO HOME OR SELFCARE Is pt being admited?: No Does the pt Need Aspirin: No Condition: Stable Additional Instructions: Minimize consumption of Motrin, ibuprofen, Naprosyn, Aleve, alcohol. Avoid consumption of heavy and spicy food. Continue current outpatient medications. Do not take metformin medication for the next 2 days, if patient takes this medication. Increase Lasix dosage to 40 mg in the morning, and 20 mg in the evening. Please follow-up with your primary care doctor or placement manager for repeat checkup/evaluation within the next 3 to 5 days. Please return to the emergency room right away with new pain, worsening pain, migration of pain, projectile vomiting, change in mental status, confusion, inability to tolerate liquid feeds. the symptoms of COVID will typically persist 10 to 14 days. There is no cure at this time for COVID. Please make certain to self isolate and self quarantine, follow-up with an outpatient primary care doctor within the next 3 to 5 days, wash hands with soap and water frequently, thoroughly and often, patient may take the prescribed medications as needed and directed. Advance diet and drink plenty of fluids as tolerated. Avoid interactions with the very elderly, very young, and those with chronic medical conditions. Return to the emergency room right away with new pain, worsening pain, migration of pain, projectile vomiting, change in mental status, confusion, inability to tolerate liquid feeds, new, worsened or different symptoms not present on the initial emergency room evaluation. Dr. Valverde is a local primary care doctor. Dr. Esposito is a local placement manager. Prescriptions: Furosemide [Lasix] 20 mg PO QHS #7 tablet Dicyclomine [Bentyl] 10 mg PO QID PRN #20 capsule PRN Reason: Pain Multivitamin with Folic Acid [Cvs One Daily Essential Tablet] 400 mcg PO QDAY #30 tablet Furosemide [Lasix TAB] 40 mg PO QAM #7 tablet Acetaminophen [Non-Aspirin Extra Strength] 500 mg PO Q6HR PRN #30 tablet PRN Reason: Pain , Severe (7-10) Ondansetron [Zofran Odt] 4 mg PO Q8HR PRN #20 tab.rapdis PRN Reason: Nausea Referrals: DOMITILA ESPOSITO MD [Staff Physician] - 3-5 Days STEVE VALVERDE MD [Staff Physician] - 3-5 Days
[2020-01-27 09:16] LABS: Hematocrit 32.3 % (30.3-42.9); Mean Corpuscular HGB Conc 31 % (30-34); Mean Corpuscular Volume 73 fl (79-97); Platelet Count 217 K/mm3 (140-440); Red Blood Count 4.43 M/mm3 (3.65-5.03)
[2020-01-27 09:40] LABS: Alanine Aminotransferase 19 units/L (7-56); Albumin 3.9 g/dL (3.9-5); BUN/Creatinine Ratio 16; Blood Urea Nitrogen 13 mg/dL (7-17); Hemolysis Index 2
--- NOTE | 2020-01-27 09:48 | XRay Report ---
CHEST 1 VIEW INDICATION / CLINICAL INFORMATION: dyspnea chf vs covid. COMPARISON: Chest radiograph from 10/29/2019 FINDINGS: SUPPORT DEVICES: None. HEART / MEDIASTINUM: Cardiomegaly with cephalization of the pulmonary vasculature. Mediastinum otherw ise appears satisfactory. LUNGS / PLEURA: Perihilar opacification worse in the bases. No pneumothorax. ADDITIONAL FINDINGS: No significant additional findings. IMPRESSION: 1. Findings concerning for edema, developing pneumonia less likely. Signer Name: Germán Camara MD Signed: 01/27/2020 9:43 AM Workstation Name: [id number]
[2020-01-27 09:55] LABS: INR 1.54 (0.87-1.13)
[2020-01-27] MEDS ORDERED: FUROSEMIDE 40 MG/4 ML INJ IV ONE (10:07)
[2020-01-27 10:08] LABS: Eosinophils % (Manual) 0 % (0.0-4.3); Total Cells Counted 100
[2020-01-27 10:09] LABS: Anisocytosis 3+; Hypochromasia 1+
[2020-01-27 10:10] LABS: Platelet Estimate Consistent w Auto; Poikilocytosis 1+; Tear Drop Cells Few
--- NOTE | 2020-01-27 10:58 | Cat Scan Report ---
CT ABDOMEN AND PELVIS WITH IV CONTRAST INDICATION: epigastric pain. COMPARISON: CT 05/23/2018. TECHNIQUE: All CT scans at this facility use dose modulation, automated exposure control, iterative reconstructi on or weight based dosing, when appropriate, to reduce radiation dose to as low as reasonably achieva ble. FINDINGS: Lung Bases: Small right and trace left pleural effusions are noted, incompletely evaluated on this ex am. These are similar to the remote prior CT. There are atelectatic changes in the bases. Cardiomegal y is again noted. Skeletal System: No acute abnormality. ABDOMEN: Liver: No significant abnormality. Gallbladder: There is diffuse gallbladder wall edema. Bile Ducts: No significant abnormality. Pancreas: No significant abnormality. Spleen: No significant abnormality. Adrenals: Nodularity in the left adrenal gland is stable, this is likely due to the presence of small adenomas. Right Kidney: Minimal nephrolithiasis. No hydronephrosis. Left Kidney: Minimal nephrolithiasis. No hydronephrosis. Upper GI tract: No significant abnormality. Lymph Nodes: No significant adenopathy. Aorta: No significant abnormality. Additional Findings: There is trace perihepatic ascites. PELVIS: Colon: No acute abnormality. Urinary Bladder and Distal Ureters: No significant abnormality. Appendix: No significant abnormality. Lymph Nodes: No significant adenopathy. Additional Findings: Enlarged leiomyomatous uterus is again noted with coarse central calcifications. IMPRESSION: 1. There is mild diffuse gallbladder wall edema with mild free fluid in the perihepatic region and p kenny. No CT evidence of gallstones or biliary dilatation. Ultrasound or HIDA scan may be useful to b kylee characterize the gallbladder. 2. Incidental findings, as above. Signer Name: Santy Krueger MD Signed: 01/27/2020 10:54 AM Workstation Name: [id number]
[2020-01-27 11:01] VITALS: BP 162/93
--- NOTE | 2020-01-27 12:15 | Ultrasound Report ---
ULTRASOUND ABDOMEN, LIMITED (RIGHT UPPER QUADRANT) INDICATION: Abdominal pain, gallbladder edema. COMPARISON: CT abdomen and pelvis with contrast from earlier today. FINDINGS: Pancreas: Visualized portion shows no significant abnormality. Liver: No significant abnormality. Gallbladder: Partially contracted with generalized wall thickening that is likely related to under di stention. No shadowing stones or pericholecystic fluid. Sonographic Pineda's sign: Negative. Bile ducts: No significant abnormality. Common Bile Duct measures 1.3 mm. Free fluid: None. Additional Findings: Small right pleural effusion. IMPRESSION: 1. Generalized gallbladder wall thickening is likely due to underdistention. No additional sonographi c evidence of cholelithiasis or acute cholecystitis. 2. Small right pleural effusion. Signer Name: Harry Peralta MD Signed: 01/27/2020 12:11 PM Workstation Name: [id number]
== END 2020-01-27 13:07 | disposition home or self-care (01) ==
LOC: ED 08:10
DX: I48.0 Paroxysmal atrial fibrillation (principal); I11.0 Hypertensive heart disease with heart failure; I50.9 Heart failure, unspecified; R10.13 Epigastric pain; Z79.899 Other long term (current) drug therapy; Z87.898 Personal history of other specified conditions
CPT/HCPCS: 36415; 71045; 74177; 76705; 80053; 82550; 83690; 83735; 83880; 84484; 85007; 85025; 85610; 93005; 96374; 96375; 99285; J1940; J2270; J2405; Q9967; 80320; G0480

== ENCOUNTER 2021-05-05 11:24 | Emergency (ER) | payer MEDICAID, OTHER ==
--- NOTE | 2021-05-05 12:29 | Emergency Department Report ---
ED General Adult HPI - General Chief complaint: Pain General Stated complaint: total left side swollen Time Seen by Provider: 05/05/21 12:10 Source: patient Mode of arrival: Wheelchair Limitations: No Limitations - History of Present Illness Initial comments: Patient presents because she states that she is having swelling and pain on the left side of her body. She actually has noticed this over the last couple of days to a week. She has not followed up with a regular doctor. She states that she does not take her diuretic because it makes her go to the bathroom. She is also been eating salt which she states that she was never told to avoid. Regardless, she has noticed swelling on the left side greater than right side. She has no orthopnea. She has no shortness of breath. There is no chest pain. She came here with her family to be evaluated because of this. The pain is described as an aching and burning pain that is generalized and diffuse. Severity scale (0 -10): 10 - Related Data Previous Rx's Medication Instructions Recorded Last Taken Type Apixaban [Eliquis] 5 mg PO BID #60 tablet 10/29/19 Unknown Rx Ferrous Sulfate [Ferrous Sulfate 324 mg PO TID #90 tablet.dr 10/29/19 Unknown Rx 324 MG] Furosemide [Lasix TAB] 40 mg PO QDAY #30 tablet 10/29/19 Unknown Rx Multivitamin with Folic Acid [[facility] 400 mcg PO QDAY #30 tablet 10/29/19 Unknown Rx One Daily Essential Tablet] chlordiazePOXIDE [Librium] 25 mg PO Q6H PRN #25 capsule 10/29/19 Unknown Rx hydrALAZINE [Apresoline TAB] 25 mg PO Q8HR #90 tab 10/29/19 Unknown Rx lisinopriL [Zestril TAB] 20 mg PO QDAY #30 tablet 10/29/19 Unknown Rx Acetaminophen [Non-Aspirin Extra 500 mg PO Q6HR PRN #30 tablet 01/27/20 Unknown Rx Strength] Dicyclomine [Bentyl] 10 mg PO QID PRN #20 capsule 01/27/20 Unknown Rx Furosemide [Lasix TAB] 40 mg PO QAM #7 tablet 01/27/20 Unknown Rx Furosemide [Lasix] 20 mg PO QHS #7 tablet 01/27/20 Unknown Rx Multivitamin with Folic Acid [[facility] 400 mcg PO QDAY #30 tablet 01/27/20 Unknown Rx One Daily Essential Tablet] Ondansetron [Zofran Odt] 4 mg PO Q8HR PRN #20 tab.rapdis 01/27/20 Unknown Rx Acetaminophen/Codeine [Tylenol 1 tab PO Q6H PRN #12 tab 05/05/21 Unknown Rx /Codeine # 3 tab] Allergies Allergy/AdvReac Type Severity Reaction Status Date / Time No Known Allergies Allergy Verified 11/09/18 08:47 ED Review of Systems ROS: Stated complaint: total left side swollen Other details as noted in HPI Comment: All other systems reviewed and negative Constitutional: denies: fever Eyes: denies: vision change ENT: denies: throat pain Respiratory: denies: cough Cardiovascular: denies: chest pain Endocrine: denies: unexplained weight loss Gastrointestinal: denies: abdominal pain Genitourinary: denies: dysuria Musculoskeletal: denies: back pain Skin: denies: rash Neurological: denies: headache Hematological/Lymphatic: denies: easy bruising ED Past Medical Hx - Past Medical History Previous Medical History?: Yes Hx Hypertension: Yes Hx Congestive Heart Failure: Yes Hx Diabetes: No Hx Asthma: No Hx COPD: No Hx HIV: No Additional medical history: heart murmer. A. fib - Surgical History Past Surgical History?: No - Family History Family history: hypertension - Social History Smoking Status: Never Smoker Substance Use Type: None - Medications Home Medications: Home Medications Medication Instructions Recorded Confirmed Last Taken Type Apixaban [Eliquis] 5 mg PO BID #60 tablet 10/29/19 Unknown Rx Ferrous Sulfate [Ferrous Sulfate 324 mg PO TID #90 tablet. 10/29/19 Unknown Rx 324 MG] Furosemide [Lasix TAB] 40 mg PO QDAY #30 tablet 10/29/19 Unknown Rx Multivitamin with Folic Acid [[facility] 400 mcg PO QDAY #30 tablet 10/29/19 Unknown Rx One Daily Essential Tablet] chlordiazePOXIDE [Librium] 25 mg PO Q6H PRN #25 capsule 10/29/19 Unknown Rx hydrALAZINE [Apresoline TAB] 25 mg PO Q8HR #90 tab 10/29/19 Unknown Rx lisinopriL [Zestril TAB] 20 mg PO QDAY #30 tablet 10/29/19 Unknown Rx Acetaminophen [Non-Aspirin Extra 500 mg PO Q6HR PRN #30 tablet 01/27/20 Unknown Rx Strength] Dicyclomine [Bentyl] 10 mg PO QID PRN #20 capsule 01/27/20 Unknown Rx Furosemide [Lasix TAB] 40 mg PO QAM #7 tablet 01/27/20 Unknown Rx Furosemide [Lasix] 20 mg PO QHS #7 tablet 01/27/20 Unknown Rx Multivitamin with Folic Acid [[facility] 400 mcg PO QDAY #30 tablet 01/27/20 Unknown Rx One Daily Essential Tablet] Ondansetron [Zofran Odt] 4 mg PO Q8HR PRN #20 tab.rapdis 01/27/20 Unknown Rx Acetaminophen/Codeine [Tylenol 1 tab PO Q6H PRN #12 tab 05/05/21 Unknown Rx /Codeine # 3 tab] ED Physical Exam - General Limitations: No Limitations, Other ( Pulse ox noted and normal) General appearance: alert, in no apparent distress, obese - Head Head exam: Present: atraumatic, normocephalic, normal inspection - Eye Eye exam: Present: normal appearance, EOMI. Absent: scleral icterus - ENT ENT exam: Present: normal exam, normal orophraynx - Neck Neck exam: Present: normal inspection. Absent: meningismus - Respiratory Respiratory exam: Present: normal lung sounds bilaterally. Absent: respiratory distress - Cardiovascular Cardiovascular Exam: Present: regular rate, normal rhythm - GI/Abdominal GI/Abdominal exam: Present: soft. Absent: distended, tenderness - Extremities Exam Extremities exam: Present: normal capillary refill, other ( anasarca is noted) - Back Exam Back exam: Absent: CVA tenderness (R), CVA tenderness (L) - Neurological Exam Neurological exam: Present: alert, oriented X3, CN II-XII intact, normal gait. Absent: motor sensory deficit - Psychiatric Psychiatric exam: Present: normal affect, normal mood - Skin Skin exam: Present: warm, dry ED Course Vital Signs 05/05/21 11:44 Temperature 97.3 F L Pulse Rate 58 L Respiratory 18 Rate Blood Pressure 121/56 [Right] O2 Sat by Pulse 97 Oximetry - Reevaluation(s) Reevaluation #1: 05/05/21 12:31 all records reviewed. Patient was discharged. ED Medical Decision Making - Medical Decision Making Patient presents with unilateral edema as perceived. On exam, there is no unilateral edema. She has diffuse bilateral edema consistent with anasarca. This is likely secondary to the fact that she is noncompliant with her diuretic and continues to eat salt. She has no evidence of pulmonary edema. Lungs are clear. There is no respiratory distress. She does not subscribe to orthopnea. Patient does not have thyromegaly on exam. She does not have tachycardia. I do not believe she has any evidence of thyrotoxicosis. She is not altered. Thyroid disease could certainly be worked up as an outpatient if she does not respond to medications. She certainly does not appear to be septic or toxic. Again, there is no unilateral edema noted. Critical Care Time: No Critical care attestation.: If time is entered above; I have spent that time in minutes in the direct care of this critically ill patient, excluding procedure time. ED Disposition Clinical Impression: Anasarca, Generalized pain Disposition: 01 HOME / SELF CARE / HOMELESS Is pt being admited?: No Condition: Stable Instructions: Musculoskeletal Pain, How to Use Cold Therapy Additional Instructions: Elevate your feet. Take your diuretic. Avoid salt. By low salt foods. Follow-up with your regular doctor for recheck and further management. Return for problems. Prescriptions: Acetaminophen/Codeine [Tylenol /Codeine # 3 tab] 1 tab PO Q6H PRN #12 tab PRN Reason: Pain, Moderate (4-6) Referrals: PRIMARY CARE, [Referring] - 3-5 Days
[2021-05-05 12:47] VITALS: BP 141/54
== END 2021-05-05 12:47 | disposition home or self-care (01) ==
LOC: ED 11:24
DX: R60.1 Generalized edema (principal); I10 Essential (primary) hypertension; I50.9 Heart failure, unspecified; M79.18 Myalgia, other site
CPT/HCPCS: 99282

== ENCOUNTER 2021-06-06 11:53 | Emergency (ER) | payer OTHER ==
[2021-06-06 12:05] VITALS: BP 125/38
[2021-06-06] MEDS ORDERED: ACETAMINOPHEN W/CODEINE 300-30 MG TAB PO ONE (12:15)
--- NOTE | 2021-06-06 12:16 | Emergency Department Report ---
ED Back Pain/Injury HPI - General Chief Complaint: Back Pain/Injury Stated Complaint: BACK PAIN Time Seen by Provider: 06/06/21 12:05 Source: patient Limitations: No Limitations - History of Present Illness Initial Comments: 51-year-old -[place] female with a past medical history of hypertension, hyperlipidemia, CVA and coronary artery disease and anemia presents to the ER today with complaints of low back pain. Patient states that she woke up with the pain about 4 days ago. She denies any particular injury or strenuous activity but she states that she did sleep on the recliner that night. She states that the pain sometimes radiates into the sides of her abdomen but overall she has no abdominal pain. She has no radiation of the pain down into her leg. She is desc ribed as a pulling pain which seems to be worse when she bends when she sits, and when she moves and other certain positions. She denies any bowel bladder incontinence, lower extremity weakness, saddle anesthesia, fever or chills, chest pain or shortness of breath. She denies any prior history of back issues in the past or any back surgery. She states that she been taking ibuprofen 400 mg without much relief of her symptoms. MD Complaint: back pain -: Gradual, days(s) (4) - Related Data Previous Rx's Medication Instructions Recorded Last Taken Type Apixaban [Eliquis] 5 mg PO BID #60 tablet 10/29/19 Unknown Rx Ferrous Sulfate [Ferrous Sulfate 324 mg PO TID #90 tablet. 10/29/19 Unknown Rx 324 MG] Furosemide [Lasix TAB] 40 mg PO QDAY #30 tablet 10/29/19 Unknown Rx Multivitamin with Folic Acid [[facility] 400 mcg PO QDAY #30 tablet 10/29/19 Unknown Rx One Daily Essential Tablet] chlordiazePOXIDE [Librium] 25 mg PO Q6H PRN #25 capsule 10/29/19 Unknown Rx hydrALAZINE [Apresoline TAB] 25 mg PO Q8HR #90 tab 10/29/19 Unknown Rx lisinopriL [Zestril TAB] 20 mg PO QDAY #30 tablet 10/29/19 Unknown Rx Acetaminophen [Non-Aspirin Extra 500 mg PO Q6HR PRN #30 tablet 01/27/20 Unknown Rx Strength] Dicyclomine [Bentyl] 10 mg PO QID PRN #20 capsule 01/27/20 Unknown Rx Furosemide [Lasix TAB] 40 mg PO QAM #7 tablet 01/27/20 Unknown Rx Furosemide [Lasix] 20 mg PO QHS #7 tablet 01/27/20 Unknown Rx Multivitamin with Folic Acid [[facility] 400 mcg PO QDAY #30 tablet 01/27/20 Unknown Rx One Daily Essential Tablet] Ondansetron [Zofran Odt] 4 mg PO Q8HR PRN #20 tab.rapdis 01/27/20 Unknown Rx Acetaminophen/Codeine [Tylenol 1 tab PO Q6H PRN #12 tab 06/06/21 Unknown Rx /Codeine # 3 tab] methOCARBAMOL [Robaxin TAB] 750 mg PO Q8H PRN #30 tablet 06/06/21 Unknown Rx Allergies Allergy/AdvReac Type Severity Reaction Status Date / Time No Known Allergies Allergy Verified 06/06/21 11:59 ED Review of Systems ROS: Stated complaint: BACK PAIN Other details as noted in HPI Comment: All other systems reviewed and negative Constitutional: denies: chills, fever Eyes: denies: eye pain, eye discharge, vision change ENT: denies: ear pain, throat pain, dental pain, hearing loss, epistaxis, congestion Respiratory: denies: cough, orthopnea, shortness of breath, SOB with exertion, SOB at rest, wheezing Cardiovascular: denies: chest pain, palpitations Endocrine: no symptoms reported Gastrointestinal: denies: abdominal pain, nausea, vomiting, diarrhea, constipation, hematemesis, hematochezia Genitourinary: denies: urgency, dysuria, frequency, hematuria, discharge, a bnormal menses, dyspareunia Musculoskeletal: back pain. denies: joint swelling, arthralgia Skin: denies: rash, lesions, change in color, change in hair/nails, pruritus Neurological: denies: headache, weakness, numbness, paresthesias, confusion, abnormal gait, vertigo Psychiatric: denies: anxiety, depression, auditory hallucinations, visual hallucinations, homicidal thoughts, suicidal thoughts Hematological/Lymphatic: denies: easy bleeding, easy bruising, swollen glands ED Past Medical Hx - Past Medical History Hx Hypertension: Yes Hx Congestive Heart Failure: Yes Hx Diabetes: No Hx Asthma: No Hx COPD: No Hx HIV: No Additional medical history: heart murmer. A. fib - Surgical History Past Surgical History?: No - Social History Smoking Status: Never Smoker Substance Use Type: None - Medications Home Medications: Home Medications Medication Instructions Recorded Confirmed Last Taken Type Apixaban [Eliquis] 5 mg PO BID #60 tablet 10/29/19 Unknown Rx Ferrous Sulfate [Ferrous Sulfate 324 mg PO TID #90 tablet.dr 10/29/19 Unknown Rx 324 MG] Furosemide [Lasix TAB] 40 mg PO QDAY #30 tablet 10/29/19 Unknown Rx Multivitamin with Folic Acid [[facility] 400 mcg PO QDAY #30 tablet 10/29/19 Unknown Rx One Daily Essential Tablet] chlordiazePOXIDE [Librium] 25 mg PO Q6H PRN #25 capsule 10/29/19 Unknown Rx hydrALAZINE [Apresoline TAB] 25 mg PO Q8HR #90 tab 10/29/19 Unknown Rx lisinopriL [Zestril TAB] 20 mg PO QDAY #30 tablet 10/29/19 Unknown Rx Acetaminophen [Non-Aspirin Extra 500 mg PO Q6HR PRN #30 tablet 01/27/20 Unknown Rx Strength] Dicyclomine [Bentyl] 10 mg PO QID PRN #20 capsule 01/27/20 Unknown Rx Furosemide [Lasix TAB] 40 mg PO QAM #7 tablet 01/27/20 Unknown Rx Furosemide [Lasix] 20 mg PO QHS #7 tablet 01/27/20 Unknown Rx Multivitamin with Folic Acid [[facility] 400 mcg PO QDAY #30 tablet 01/27/20 Unknown Rx One Daily Essential Tablet] Ondansetron [Zofran Odt] 4 mg PO Q8HR PRN #20 tab.rapdis 01/27/20 Unknown Rx Acetaminophen/Codeine [Tylenol 1 tab PO Q6H PRN #12 tab 06/06/21 Unknown Rx /Codeine # 3 tab] methOCARBAMOL [Robaxin TAB] 750 mg PO Q8H PRN #30 tablet 06/06/21 Unknown Rx ED Physical Exam - General Limitations: No Limitations General appearance: alert, in no apparent distress, obese - Head Head exam: Present: atraumatic, normocephalic - ENT ENT exam: Present: normal exam, mucous membranes moist, TM's normal bilaterally - Neck Neck exam: Present: normal inspection, full ROM. Absent: meningismus - Respiratory Respiratory exam: Present: normal lung sounds bilaterally. Absent: respiratory distress, wheezes, rales, rhonchi, stridor - Cardiovascular Cardiovascular Exam: Present: regular rate, normal rhythm, normal heart sounds - GI/Abdominal GI/Abdominal exam: Present: soft. Absent: distended, tenderness, guarding, rebound - Back Exam Back exam: Present: normal inspection, full ROM (But it is painful), muscle spasm (Lower lumbar area), paraspinal tenderness (Lower lumbar area). Absent: CVA tenderness (R), CVA tenderness (L), rash noted - Neurological Exam Neurological exam: Present: alert, oriented X3, CN II-XII intact, normal gait, reflexes normal. Absent: motor sensory deficit - Psychiatric Psychiatric exam: Present: normal affect, normal mood - Skin Skin exam: Present: intact ED Course Vital Signs 06/06/21 12:04 Temperature 97.9 F Pulse Rate 53 L Respiratory 19 Rate Blood Pressure 125/38 [Right] O2 Sat by Pulse 98 Oximetry ED Medical Decision Making - Medical Decision Making Patient presents to the ER with complaints of acute back pain. Patient symptoms appears to be more related to muscle spasms. Her pain started after she slipped in a recliner, and is worse with movement and on palpation. She has no saddle anesthesia, bowel bladder incontinence, no lower extremity weakness, abdominal or urinary complaints neither does she have any chest pain or shortness of breath. She is afebrile, not toxic, not ill-appearing and not in any significant distress. She is ambulatory in the ER with a normal gait. Her vital signs are stable. At this time there is no indication for emergent testing, admission or specialist consult. Discussed suspected diagnosis and treatment plan with patient. Patient is to follow-up with her PCP next week. She expressed understanding of all instructions and agree with plan. Patient stable at time of discharge. Critical care attestation.: If time is entered above; I have spent that time in minutes in the direct care of this critically ill patient, excluding procedure time. ED Disposition Clinical Impression: Lumbar paraspinal muscle spasm Disposition: HOME / SELF CARE / HOMELESS Is pt being admited?: No Does the pt Need Aspirin: No Condition: Stable Instructions: Muscle Cramps and Spasms, [id number], Acute Back Pain, Adult, Back Exercises, [id number] Additional Instructions: I recommend taking the tylenol 3 and the robaxin as prescribed. You can also use [id number] muscle rubs and also a heating pad. Do not use the heating pad over a muscle rub. I also recommend that you follow the back stretching exercises on your discharge instructions. Try not to sleep up in a recliner, try sleeping in a comfortable position and on your be. follow-up with your PCP. Return to the ER if any symptoms worsens or changes in any way Prescriptions: methOCARBAMOL [Robaxin TAB] 750 mg PO Q8H PRN #30 tablet PRN Reason: Muscle Spasm Acetaminophen/Codeine [Tylenol /Codeine # 3 tab] 1 tab PO Q6H PRN #12 tab PRN Reason: Pain, Moderate (4-6) Referrals: PRIMARY CARE, [Referring] - 3-5 Days Time of Disposition: 13:19
== END 2021-06-06 14:25 | disposition home or self-care (01) ==
LOC: ED 11:53
DX: M62.830 Muscle spasm of back (principal); I10 Essential (primary) hypertension; Z86.79 Personal history of other diseases of the circulatory system
CPT/HCPCS: 99282